=== PATIENT | male | born 1975 | race Two or more races ===

== ENCOUNTER 2024-09-15 10:55 | Day surgery (SDC) | payer MEDICAID, SELFPAY ==
[2024-09-12 11:11] LABS: Basophils # (Auto) 0.1 Thou/mm3 (0.0-0.2); Basophils % (Auto) 1 % (0-2.5); Eosinophils # (Auto) 0.2 Thou/mm3 (0.0-0.5); Eosinophils % (Auto) 2 % (0-10); Hematocrit 35.8 % (41.0-53.0); Hemoglobin 11.7 g/dL (13.5-16.0); Immature Granulocytes % (Auto) 0 % (0-0); Immature Granulocytes Auto 0.03 Thou/mm3 (0.00-0.00); Lymphocytes # (Auto) 1.7 Thou/mm3 (1.0-4.8); Lymphocytes % (Auto) 21 % (10-50); Mean Corpuscular HGB Conc 32.7 g/dl (31.0-37.0); Mean Corpuscular Volume 86 fL (80-100); Monocytes # (Auto) 0.5 Thou/mm3 (0.0-0.8); Monocytes % (Auto) 6 % (0-12); Neutrophils # (Auto) 5.6 Thou/mm3 (1.8-7.7); Neutrophils % (Auto) 70 % (37-80); Nucleated Red Blood Cell % 0 /100 WBC (0); Platelet Count 310 Thou/mm3 (140-440); RDW Standard Deviation 38.7 fL (35.1-43.9); Red Blood Count 4.18 Miln/mm3 (4.50-5.90)
[2024-09-12 11:19] LABS: Alanine Aminotransferase 24 U/L (10-49); Albumin, Serum 3.5 gm/dL (3.5-5.0); Albumin/Globulin Ratio 1.3 (1.2-2.2); Alkaline Phosphatase 124 U/L (46-116); Anion Gap 9 (7-16); Aspartate Amino Transferase 19 U/L (0-34); BUN/Creatinine Ratio 8 Ratio (12-20); Bilirubin,Total < 0.2 mg/dL (0.3-1.2); Blood Urea Nitrogen 61 mg/dL (9-23); Calcium 8.8 mg/dL (8.3-10.6); Calcium (Corrected) 9.2 mg/dL (8.5-10.1); Carbon Dioxide 24.1 mMol/L (20.0-31.0); Chloride 102 mMol/L (98-107); Creatinine (Component) 7.4 mg/dL (0.6-1.3); Globulin 2.7 gm/dL (2.3-3.5); Glucose 226 mg/dL (74-106); Osmolality,Calculated 294 (275-295); Potassium 4.2 mMol/L (3.4-5.1); Sodium 135 mMol/L (136-145); Total Protein 6.2 gm/dL (5.7-8.2); eGFR 8 See Note
[2024-09-12 11:23] LABS: Partial Thromboplastin Time 33.8 Seconds (22.0-36.0); Prothrombin Time 10.9 Seconds (9.0-12.2)
[2024-09-12 12:56] VITALS: BMI 37.0
--- NOTE | 2024-09-12 13:07 | SUR.PREOP ---
Pt took eliquis this morning, Dr Christopher SOLOMON notified stated ok to proceed and not take it anymore until after surgery. Nursing from [facility] informed.
[2024-09-15] VITALS (8 sets, daily range): BP systolic 109–178; BP diastolic 80–103; PULSE 73–77; RESP 12–18; TEMP 36.2–36.4; O2SAT 94–100; BMI 36.5
[2024-09-15 11:50] LABS: Potassium 4.1 mMol/L (3.4-5.1)
--- NOTE | 2024-09-15 14:26 | ESOP_ITS ---
Date of Procedure 09/15/24 Pre Op Diagnosis End-stage renal disease with the need for permanent dialysis access Post Op Diagnosis Same as preop diagnosis Procedure Creation of arteriovenous fistula between the median cubital vein and the pr oximal radial artery of the right upper extremity Findings The artery with some what calcified but widely patent and there is a good palpable thrill in the fistula Procedure Description With the patient supine under adequate laryngeal mask anesthesia the right upper extremity sterilely prepped and draped. A timeout was performed. A slightly oblique incision was made just distal to the antecubital fossa and the areas cubital vein was dissected free from surrounding tissues ligated distally with a 3-0 silk tie and mobilized. The dissection was then deepened through the bicipital aponeurosis to exposed the proximal portion of the radial artery which was calcified but was soft enough to clamp and had a good pulse and Doppler signal. The artery was then cramp proximally and distally a large arteriotomy was made and stay sutures were placed. The vein was then cut to size and sewn to the artery with a combination of interrupted and running 7-0 Prolene sutures. Before completion the artery was 4 flushed and back flushed the anastomotic area was copiously irrigated with heparin saline. Flow was then established and the anastomosis was completed. Hemostasis was obtained and the wound was closed in layers with 3-0 Vicryl the subcutaneous tissues and a 4 Monocryl subcuticular skin closure. A Dermabond dressing was applied. The patient woke up from anesthesia was moved to recovery in stable condition Anesthesia other (Laryngeal mask anesthesia) Implants None Pathology / specimen None Estimated Blood Loss 20 Condition Stable Surgeon Gabe White MD Surgical Staff Operation Date: 09/15/24 12:30 Case Staff Anesthesiologist: Mitul Vidales RN First Assistant: Abena Rodriguez
--- NOTE | 2024-09-15 14:40 | SUR.PHASEI ---
pt received from OR in recovery bay 2. pt asleep but responds to voice, breathing unlabored on oxymask 6l, v/s stable. pt dressing to right arm cdi. report received from Rosangela STAFFORD and Dr. Vidales.
[2024-09-15] MEDS: ACETAMINOPHEN IVPB 1,000 MG/100 ML VIAL 250 MG IV (15:43)
--- NOTE | 2024-09-15 16:15 | SUR.PHASEII ---
pt awake and alert, breathing unlabored on room air. v/s stable. pt dressing to right arm cdi. pt able to transfer to wheelchair. d/c instructions given with Mia at [facility] over the phone, all questions answered. pt d/c via wheelchair with all belongings.
== END 2024-09-15 16:15 | disposition home or self-care (01) ==
PROVIDERS: Anesthesiology; PCP Family Medicine; Referring Provider Surgery Vascular Surgery; Visit Provider Surgery Vascular Surgery
PROC: (CPT 36825; principal; 2024-09-15 12:15)
DX: I12.0 Hypertensive chronic kidney disease with stage 5 chronic kidney disease or end stage renal disease (principal); N18.6 End stage renal disease; E11.22 Type 2 diabetes mellitus with diabetic chronic kidney disease; Z86.73 Personal history of transient ischemic attack (TIA), and cerebral infarction without residual deficits; E66.9 Obesity, unspecified; Z68.36 Body mass index [BMI] 36.0-36.9, adult
CPT/HCPCS: 36821; 36415; 80053; 84132; 85025; 85610; 85730; A4217; A4649; J0131; J0461; J0690; J1100; J1644; J2250; J2405; J2440; J2704; J3010

== ENCOUNTER 2024-09-29 23:34 | Emergency (ER) | payer MEDICAID, SELFPAY ==
[2024-09-29 23:36] VITALS: PULSE 82; RESP 18; O2SAT 98; BMI 37.2
--- NOTE | 2024-09-29 23:41 | PC.NURSE ---
Pt has a new fistula to his right upper arm, that is not being used yet. Pt has a working vas-cath to his right chest. Pt became dizzy and had blurred vision this afternoon (unknown what time) and he started vomiting this evening. Pt was given zofran enroute and has not vomited since.
[2024-09-29 23:42] VITALS: BP 216/103; PULSE 78; RESP 17; TEMP 36.7; O2SAT 95
--- NOTE | 2024-09-29 23:44 | PC.NURSE ---
Pt is able to hold his left arm and left leg up, he does have more difficulty with the left side than the right. Pt states he's been like that since a previous stroke. Pt's left hand is clenched, which he states is his baseline
[2024-09-29 23:47] VITALS: BP 216/103; PULSE 77
[2024-09-29] MEDS: METOPROLOL TARTRATE 25 MG TABLET 50 MG PO (23:47)
[2024-09-29 23:48] VITALS: BP 216/103; PULSE 77
[2024-09-29] MEDS: cloNIDine HCL 0.1 MG TABLET 0.4 MG PO (23:48)
[2024-09-29 23:52] VITALS: BP 189/118; PULSE 76
[2024-09-30] VITALS (7 sets, daily range): BP systolic 162–224; BP diastolic 93–119; PULSE 70–76; RESP 18–20; TEMP 36.9; O2SAT 94–95
--- NOTE | 2024-09-30 00:01 | XR_ITS ---
Examination: CT brain head without contrast. 2-D sagittal coronal reconstructions Date and time of exam:September 30, 2024 0123 hours INDICATIONS: High blood pressure today with headache vomiting and dizziness CTDI: vol (mGy):55.3 DLP: (mGycm):1078 Technique: Multiple CT axial sections of the brain have been obtained, 5 mm slice thickness. Contrast has not been administered. 2-D sagittal, coronal reconstructions have been obtained Low dose protocols were performed. One or more of the following dose reduction techniques were used; automated exposure control, adjustment of the mA and/or KV according to patient size, use of iterative reconstruction technique. Findings: No significant ventricular enlargement. Old infarcts right caudate nucleus right frontal lobe right and left basal ganglia Intra-axial or extra-axial hemorrhage density is not seen. No mass effect or midline shift Basal cisterns are not remarkable. Fourth ventricle is midline. Cranial vault intact. Impression: Negative for acute hemorrhage, mass effect or midline shift Multiple old infarcts Consider brain MRI follow-up, without intravenous contrast
--- NOTE | 2024-09-30 00:01 | XR_ITS ---
Examination: CT chest, without intravenous contrast. CT abdomen, without intravenous contrast. CT pelvis, without intravenous contrast. 2-D sagittal and coronal reconstructions. 3-D reconstructions. Date and time of exam:September 30, 2024 0126 hours INDICATIONS: High blood pressure today with chest pain shortness of breath dizziness abdominal pain CTDI vol (mgy) 55.3 DLP (MGycm)1078 Technique: Multiple CT images, 3.0 mm slice thickness, obtained chest, abdomen, pelvis, with the high-resolution 64 slice scanner.. Sagittal and coronal 2-D reconstructions are obtained. 3-D reconstructions Low dose protocols were performed. One or more of the following dose reduction techniques were used; automated exposure control, adjustment of the mA and/or KV according to patient size, use of iterative reconstruction technique. Findings: Examination is limited without intravenous contrast Thoracic aorta pulmonary arteries intact Mild enlargement cardiac contour Pericardial effusion measuring up to 22 mm in thickness Moderate vascular congestion No lobar pneumonia No focal liver or splenic lesion No gallstones No pancreatic or adrenal mass Significant perinephric stranding No renal or ureteral calculi, no hydronephrosis Aorta normal size No bowel obstruction No pericecal inflammatory change Urinary bladder intact No prostatomegaly Prominent osteopenia with moderate disc narrowing L5-S1 IMPRESSION: Pericardial effusion measuring up to 22 mm in thickness Moderate vascular congestion Significant perinephric stranding, differential would include nephritis, urinary tract infection, clinical correlation advised
--- NOTE | 2024-09-30 00:02 | EKG_ITS ---
[facility] Test Date: 2024-09-30 Pat Name: AGUILA YOO Department: Room: - Gender: Male Privacy Officer: : 1975 Requested By: Steve Weller Order Number: [id number] Reading MD: Steve Weller Measurements Intervals [place] Rate: 69 P: 41 DC: 160 QRS: 30 QRSD: 101 T: 35 QT: 447 QTc: 481 Interpretive Statements SINUS RHYTHM PROLONGED QT INTERVAL Compared to ECG 08/13/2024 19:15:59 Prolonged QT interval now present T-wave abnormality no longer present /store/S0/[id number]/ecg/[id number].pdf
[2024-09-30] MEDS: cloNIDine HCL 0.1 MG TABLET 0.4 MG PO (00:03)
--- NOTE | 2024-09-30 00:10 | PC.NURSE ---
Pt declined catheter, urinal at bedside
--- NOTE | 2024-09-30 00:11 | PD.EDDIZZY ---
ED Dizzyness RME/HPI General Chief Complaint: Dizziness Stated Complaint: vomiting,dizziness Time Seen by Provider: 09/29/24 23:38 Arrival date/time: 09/29/24 23:34 RME / HPI RME / HPI Narrative: This section includes all my notes and documentations, including HPI, PE, and ED course. Steve Ziegler MD HPI: 49-year-old male here to be evaluated with several hours of severe headache and dizziness and blurred vision. No speech impairment. 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 No new loss of power in the arms or legs. No chest pain or shortness of breath. No other complaints ROS: All negative except as documented in HPI. Physical Exam: General: Alert and oriented. No acute distress. Eyes: Conjunctivae and lids clear. EOMI. PERRL. ENT: No nasal congestion. Pharynx normal. Tympanic membrane normal bilaterally. Neck: Supple. No carotid bruit. No JVD. Heart: RRR. Lungs: No respiratory distress. Good air movement. No rhonchi, wheezing, rales. Abdomen: Soft and nontender. Back: No CVA tenderness. Legs: No clubbing, cyanosis, edema. Skin: Warm and dry. Neuro: Alert and oriented X 3. Cranial Nerves II-XII grossly intact. No new peripheral motor deficits. I reviewed all diagnostic test results. My interpretation of the EKG is sinus rhythm with nonspecific ST-T changes. My review of the head CT report is no acute findings. My review of the chest/abdomen/pelvis CT report is no acute findings. Blood tests and urine tests unremarkable. At this point, diagnoses include hypertensive urgency. Treatment here included oral clonidine and oral metoprolol. Significant improvement noted. Added clonidine to his BP medication list. Based on my best medical judgment, made decision no further evaluation or treatment indicated at this time. Patient understands and agrees to the discharge instructions customized and printed, see below. Discharge instructions from Dr. Ziegler: 1. After extensive evaluation, there is no life-threatening condition.? Such as stroke or brain tumor or heart attack or pulmonary embolism (blood clots in your lungs) or pneumothorax (collapsed lung). 2. To help lower BP, clonidine 0.2 mg BID until cleared by a doctor taking care of him. 3. Seek immediate medical care with worsening or with any concerns.?? Steve Ziegler MD Related Data Home Medications ?Medication ?Instructions ?Recorded ?Confirmed furosemide 40 mg tablet 40 mg PO QDAY 04/18/24 09/12/24 glipizide 10 mg tablet 10 mg PO BID 04/18/24 09/12/24 calcitriol 0.25 mcg capsule 0.25 mcg PO USEASDIRECTD 08/15/24 09/12/24 lisinopril 20 mg tablet 20 mg PO 1XD 08/15/24 09/12/24 apixaban 5 mg tablet (Eliquis) 5 mg PO BID 09/12/24 09/12/24 carvedilol 12.5 mg tablet 12.5 mg PO BID 09/12/24 09/12/24 cholecalciferol (vitamin D3) 1,250 1,250 mcg PO QWEEK 09/12/24 09/12/24 mcg (50,000 unit) tablet rosuvastatin 20 mg tablet 20 mg PO HS 09/12/24 09/12/24 vitamin B complex-vitamin C-folic 1 tab PO QDAY 09/12/24 09/12/24 acid 0.8 mg tablet (Kaley-Radha) Previous Rx's ?Medication ?Instructions ?Recorded clonidine HCl 0.2 mg tablet 0.2 mg PO BID #60 tabs 09/30/24 Allergies Allergy/AdvReac Type Severity Reaction Status Date / Time No Known Allergies Allergy Verified 08/13/24 18:05 Course Quality Measures none Orders Category Date Time Status EKG (ED ONLY) *Do not use* NOW Care 09/30/24 00:02 Completed Saline [Insert IV] NOW Care 09/30/24 00:01 Active Straight [In and Out Catheter] X1 Care 09/30/24 00:[address] chest abdomen pelvis wo Stat Exams 09/30/24 00:[address] head/brain wo con Stat Exams 09/30/24 00:01 Taken EKG (ED Only) Stat Exams 09/30/24 00:02 Ordered BNP [B-Type Natriuretic Peptide] Stat Lab 09/30/24 00:00 Completed CBC Stat Lab 09/30/24 00:00 Completed CMP [Comprehensive Metabolic Panel] Stat Lab 09/30/24 00:00 Completed Magnesium Stat Lab 09/30/24 00:00 Completed TSH [Thyroid Stimulating Hormone] Stat Lab 09/30/24 00:00 Completed Troponin I Stat Lab 09/30/24 00:00 Completed UA, C/S IF [Urinalysis, C/S if Indicated] Stat Lab 09/30/24 00:29 Completed Metoprolol Tartrate [Lopressor] Med 09/29/24 23:39 Discontinued 50 mg PO X1 ONE cloNIDine HCL [Catapres] Med 09/29/24 23:39 Discontinued 0.4 mg PO X1 ONE Vital Signs Vital signs: Vital Signs Temperature 98.1 F 09/29/24 23:42 Pulse Rate 78 09/29/24 23:42 Respiratory Rate 17 09/29/24 23:42 Blood Pressure 216/103 H 09/29/24 23:42 Pulse Oximetry (%) 95 09/29/24 23:42 Oxygen Delivery Method Room Air 09/29/24 23:42 Dizziness Patient data External records reviewed:: [facility] previous records, EMS form and [facility] records Clinical information provided by:: patient and EMS Social determinants that could affect healthcare access:: none Patient has the following chronic illnesses:: Left side paralysis due to CVA and DM and CKD on dialysis and HTN How is presenting disease/condition affected by chronic disease/condition?: exacerbated by Evaluation data The following diagnostics were reviewed and interpreted by me:: lab results, radiology exam(s) and EKG tracing(s) (Sinus rhythm with nonspecific ST-T changes) Lab and/or radiology exams considered but not ordered:: None Interpretation Summary: Hypertensive urgency Medications / Prescriptions Medications or Prescriptions considered but not ordered:: None Medication administrations:: Medication Administration History Discontinued Medications Clonidine (Clonidine Hcl 0.1 Mg Tablet) 0.4 mg PO X1 ONE Stop: 09/29/24 23:40 Last Admin: 09/30/24 00:03 Dose: 0.2 mg Documented By: ALISHA Comments: Partial dose given at 2348 and remaining 0.2mg given at 0003 Admin: 09/29/24 23:48 Dose: 0.2 mg Documented By: ALISHA Metoprolol Tartrate (Metoprolol Tartrate 25 Mg Tablet) 50 mg PO X1 ONE Stop: 09/29/24 23:40 Last Admin: 09/29/24 23:47 Dose: 50 mg Documented By: ALISHA Clonidine and metoprolol Consultations Consultation(s) initiated? (list below): No Diagnosis Dizziness Differential Diagnosis: adverse reaction to drug, benign paroxysmal positional vertigo, orthostatic hypotension, cerebrovascular accident, transient cerebral ischemia and other (MD, electrolyte abnormalities) Most likely diagnosis given after review of the tests above:: Hypertensive urgency Admission Indicated Admission indicated?: not indicated Explain why admission is indicated or not indicated:: Admission criteria not met with significant improvement with treatment here Admission Request Was there a request for admission?: No Disposition Plan Disposition Plan: Discharge Discharge Attestation Discharge Attestation: The patient and all family members were given an opportunity to ask questions and understood the discharge instructions. Discharge instructions specifically effects, indications for sooner follow up or return to the emergency department, and the expected course of current diagnosis. Patient condition: Stable Discharge Plan Plan Patient Disposition: Xfer Skilled Nsg Fac (SNF) Prescriptions/Referrals Prescriptions/Med Rec: New clonidine HCl 0.2 mg tablet 0.2 mg PO BID Qty: 60 0RF No Action furosemide 40 mg Tablet 40 mg PO QDAY glipizide 10 mg Tablet 10 mg PO BID calcitriol 0.25 mcg capsule 0.25 mcg PO USEASDIRECTD Rx Instructions: Per patient he taskes every other day. lisinopril 20 mg tablet 20 mg PO 1XD carvedilol 12.5 mg Tablet 12.5 mg PO BID Rx Instructions: must administer with a meal/food Kaley-Radha 0.8 mg Tablet 1 tab PO QDAY rosuvastatin 20 mg Tablet 20 mg PO HS cholecalciferol (vitamin D3) 1,250 mcg (50,000 unit) Tablet 1,250 mcg PO QWEEK Eliquis 5 mg Tablet 5 mg PO BID Problem List Clinical Impression: Hypertensive urgency Patient/Caregiver Discharge Instructions Discharge Activity: activity as tolerated and resume usual activities Additional Instructions: Discharge instructions from Dr. Ziegler: 1. After extensive evaluation, there is no life-threatening condition.? Such as stroke or brain tumor or heart attack or pulmonary embolism (blood clots in your lungs) or pneumothorax (collapsed lung). 2. To help lower BP, clonidine 0.2 mg BID until cleared by a doctor taking care of him. 3. Seek immediate medical care with worsening or with any concerns.?? Print Language: Comoran Stand Alone Forms: Tiffany Award Info., Patient Portal Info Letter
[2024-09-30 00:14] LABS: Basophils % (Auto) 0 % (0-2.5); Eosinophils # (Auto) 0.2 Thou/mm3 (0.0-0.5); Eosinophils % (Auto) 2 % (0-10); Hematocrit 37.2 % (41.0-53.0); Immature Granulocytes % (Auto) 0 % (0-0); Immature Granulocytes Auto 0.02 Thou/mm3 (0.00-0.00); Lymphocytes # (Auto) 1.8 Thou/mm3 (1.0-4.8); Lymphocytes % (Auto) 21 % (10-50); Mean Corpuscular HGB Conc 32.3 g/dl (31.0-37.0); Mean Corpuscular Hemoglobin 28.4 pg (25.0-35.0); Mean Corpuscular Volume 88 fL (80-100); Monocytes # (Auto) 0.5 Thou/mm3 (0.0-0.8); Monocytes % (Auto) 6 % (0-12); Neutrophils # (Auto) 6.3 Thou/mm3 (1.8-7.7); Neutrophils % (Auto) 72 % (37-80); Nucleated Red Blood Cell % 0 /100 WBC (0); Platelet Count 220 Thou/mm3 (140-440); RDW Standard Deviation 43.4 fL (35.1-43.9); Red Blood Count 4.22 Miln/mm3 (4.50-5.90); White Blood Count 8.8 Thou/mm3 (3.8-10.6)
[2024-09-30 00:37] LABS: Collection Type, Urine Clean Catch
[2024-09-30 00:38] LABS: Alanine Aminotransferase 19 U/L (10-49); Albumin, Serum 3.5 gm/dL (3.5-5.0); Albumin/Globulin Ratio 1.2 (1.2-2.2); Alkaline Phosphatase 122 U/L (46-116); Anion Gap 8 (7-16); Aspartate Amino Transferase 27 U/L (0-34); BUN/Creatinine Ratio 7 Ratio (12-20); Bilirubin,Total 0.2 mg/dL (0.3-1.2); Blood Urea Nitrogen 50 mg/dL (9-23); Calcium 9.1 mg/dL (8.3-10.6); Calcium (Corrected) 9.5 mg/dL (8.5-10.1); Carbon Dioxide 27.6 mMol/L (20.0-31.0); Chloride 103 mMol/L (98-107); Creatinine (Component) 6.8 mg/dL (0.6-1.3); Estimated Creatinine Clearance 16.1 mL/min (>60); Globulin 2.9 gm/dL (2.3-3.5); Glucose 194 mg/dL (74-106); Magnesium 1.9 mg/dL (1.6-2.6); Osmolality,Calculated 295 (275-295); Potassium 4.4 mMol/L (3.4-5.1); Sodium 139 mMol/L (136-145); Thyroid Stimulating Hormone 3.09 uIU/mL (0.55-4.78); Total Protein 6.4 gm/dL (5.7-8.2); Troponin I 0.045 ng/mL (0.0-0.045); eGFR 9 See Note
[2024-09-30 00:44] LABS: B-Type Natriuretic Peptide 653 pg/mL (0-100)
[2024-09-30 01:00] LABS: Bilirubin,Urine Negative (Negative); Blood,Urine 2+ (Negative); Clarity,Urine Clear (Clear/Hazy); Color,Urine Lt-Yellow (Lt Yel-Yel); Culture Indicated,Urine Not Indicated; Glucose, Urine 4+ (Negative); Ketones,Urine Negative (Negative); Leukocyte Esterase,Urine Negative (Negative); Nitrite,Urine Negative (Negative); PH,Urine 8.5 (5.0-7.0); Protein,Urine 4+ (Neg - Trace); RBC,Urine 85 /hpf (0-3); Specific Gravity,Urine 1.017 (1.001-1.035); Squamous Epithelial Cell,Urine < 1 /hpf (0-5); Urobilinogen,Urine Negative mg/dL (0.0-1.0); WBC,Urine 2 /hpf (0-5)
--- NOTE | 2024-09-30 02:10 | PRELIM_ITS ---
CT scan of the head without intravenous contrast (axial sections with sagittal and coronal reformats) . September 30, 2024 0123 hoursClinical History: Dizziness and high BPComparison: No prior study is av ailable for comparison. Findings:There is no evidence of intracranial hemorrhage, mass effect or midl ine shift. The ventricles and CSF spaces are unremarkable. The calvarium is unremarkable. The mastoid air cells and the visualized paranasal sinuses are clear.Impression:No evidence of intracranial hemo rrhage, mass effect or midline shift. Recommend further evaluation with MRI, as clinically indicated. Report Electronically Signed By: Denise Perales 09/30/2024 2:09:36 AM [EST]
--- NOTE | 2024-09-30 02:28 | PRELIM_ITS ---
CT scan of the chest, abdomen and pelvis without intravenous contrast (axial sections with sagittal a nd coronal reformats) September 30, 2024 0126 hours Clinical History: Chest pain and abdominal pain.Co mparison: No prior study is available for comparison.Findings:The evaluation is limited due to lack o f intravenous contrast.Bibasilar dependent atelectasis is present. There is no pleural effusion or pn eumothorax. The aorta and its branches demonstrate atheromatous calcification without evidence of ane urysm. No evidence of mediastinal mass or lymphadenopathy. There is a small pericardial effusion.The liver, gallbladder, spleen, pancreas and adrenals are unremarkable on this noncontrast study. Perinep hric fat stranding is noted bilaterally. No evidence of bowel obstruction. The appendix is not defini tively visualized; however, there is no evidence of inflammatory process in the right lower quadrant to suggest appendicitis. The urinary bladder is incompletely distended at the time of the examination . There is no free fluid or free air.The osseous structures are unremarkable. Impression:1. Small per icardial effusion.2. Perinephric fat stranding bilaterally. While nonspecific, the possibility of uri nary infection cannot be excluded. Recommend clinical correlation.3. Other findings as described talia gallegos.Discussion Details: Results verbally communicated to : Dr. Ziegler at 02:23 AM 09/30/2024 Report Elect ronically Signed By: Denise Perales 09/30/2024 2:27:37 AM [EST]
--- NOTE | 2024-09-30 03:06 | PC.NURSE ---
Report given to Ashley at [facility] and [facility]
== END 2024-09-30 03:06 | disposition skilled nursing facility (03) ==
LOC: SERX 09-30 07:22
PROVIDERS: Emergency Provider Emergency Medicine; PCP Hospitalist
DX: I16.0 Hypertensive urgency (principal); I69.354 Hemiplegia and hemiparesis following cerebral infarction affecting left non-dominant side; I31.39 Other pericardial effusion (noninflammatory)
CPT/HCPCS: 36415; 70450; 71250; 74176; 80053; 81001; 83735; 83880; 84443; 84484; 85025; 93005; 99284; A9270

== ENCOUNTER 2024-09-30 10:27 | Emergency (ER) | payer MEDICAID, SELFPAY ==
[2024-09-30] VITALS (31 sets, daily range): BP systolic 141–218; BP diastolic 68–112; PULSE 63–71; RESP 0–18; TEMP 36.2–36.6; O2SAT 93–97; BMI 37.2
--- NOTE | 2024-09-30 11:09 | XR_ITS ---
Examination: AP chest single view TECHNIQUE: AP portable upright chest single view Exam date and time: September 30, 2024 1206 hours Comparison August 13, 2024 INDICATIONS: Dizziness today. FINDINGS: Mild enlargement cardiac contour Moderate vascular congestion Right internal jugular dialysis catheter tip satisfactory position Moderate osteopenia IMPRESSION: Moderate vascular congestion
--- NOTE | 2024-09-30 11:09 | XR_ITS ---
Examination: CT brain head without contrast. 2-D sagittal coronal reconstructions Date and time of exam:September 30, 2024 1138 hours INDICATIONS: Onset dizziness this morning CTDI: vol (mGy):51.6 DLP: (mGycm):1097 Technique: Multiple CT axial sections of the brain have been obtained, 5 mm slice thickness. Contrast has not been administered. 2-D sagittal, coronal reconstructions have been obtained Low dose protocols were performed. One or more of the following dose reduction techniques were used; automated exposure control, adjustment of the mA and/or KV according to patient size, use of iterative reconstruction technique. Findings: No significant ventricular enlargement. Multiple old appearing right basal ganglia and bilateral caudate nucleus, right occipital lobe infarcts Intra-axial or extra-axial hemorrhage density is not seen. No mass effect or midline shift Basal cisterns are not remarkable. Fourth ventricle is midline. Cranial vault intact. Impression: Negative for acute hemorrhage, mass effect or midline shift Given the patient's multiple old infarcts, consider brain MRI, stroke protocol follow-up
--- NOTE | 2024-09-30 11:12 | EDNOTE_ITS ---
ED Dizzyness RME/HPI General Chief Complaint: Dizziness Stated Complaint: DIZZINESS Time Seen by Provider: 09/30/24 10:52 Arrival date/time: 09/30/24 10:27 RME / HPI RME / HPI Narrative: 49-year-old male patient with significant history of diabetes mellitus, hypertension, CVA with residual left-sided weakness was brought in by EMS from [facility] regarding dizziness. Patient has been having dizziness since earlier today, severity moderate, worse with opening the eyes. Patient denies any vomiting. Denies any fever denies any headache. Denies any other new upper or lower extremity weakness. Denies any trauma or fall. Related Data Home Medications ?Medication ?Instructions ?Recorded ?Confirmed furosemide 40 mg tablet 40 mg PO QDAY 04/18/24 09/12/24 glipizide 10 mg tablet 10 mg PO BID 04/18/24 09/12/24 calcitriol 0.25 mcg capsule 0.25 mcg PO USEASDIRECTD 08/15/24 09/12/24 lisinopril 20 mg tablet 20 mg PO 1XD 08/15/24 09/12/24 apixaban 5 mg tablet (Eliquis) 5 mg PO BID 09/12/24 09/12/24 carvedilol 12.5 mg tablet 12.5 mg PO BID 09/12/24 09/12/24 cholecalciferol (vitamin D3) 1,250 1,250 mcg PO QWEEK 09/12/24 09/12/24 mcg (50,000 unit) tablet rosuvastatin 20 mg tablet 20 mg PO HS 09/12/24 09/12/24 vitamin B complex-vitamin C-folic 1 tab PO QDAY 09/12/24 09/12/24 acid 0.8 mg tablet (Kaley-Radha) Previous Rx's ?Medication ?Instructions ?Recorded clonidine HCl 0.2 mg tablet 0.2 mg PO BID #60 tabs 09/30/24 Allergies Allergy/AdvReac Type Severity Reaction Status Date / Time No Known Allergies Allergy Verified 09/30/24 10:46 Review of Systems Review of Systems Narrative Review of Systems: Review of system reviewed and within normal limits except mentioned in HPI ED Exam Narrative Physical exam: VITAL SIGNS: Reviewed. GENERAL APPEARANCE: Alert and interactive, follows commands, no acute distress, HEAD AND FACE: Non-traumatic. ENT: PERRL, pink conjunctivitis, eyelid no trauma, Mucous membrane moist. no Nystagmus NECK: Supple, nontender, no nuchal rigidity. CHEST: No tenderness, no crepitus, no paradoxical movement, no retractions. LUNGS: Clear, well ventilated, symmetric, no rales, no wheezing, no ronchi, no stridor, good breath sounds bilaterally. HEART: Regular rate, regular rhythm, no murmur, no gallops. ABDOMEN: Soft, positive bowel sounds, nondistended, no guarding, nontender, no rebound, no masses, RECTAL: Deferred. GENITAL: Deferred. NEUROLOGICAL: Gross motor function intact sensory function intact, Appropriate for age. MUSCULOSKELETAL: low back nontender, full range of motion. Right Upper Extremity ,+ left-sided weakness EXTREMITIES: Nontender, full range of motion SKIN: Color pink, dry, no rash, no lacerations, no abrasions, no contusions. LYMPHATICS: Deferred. Course Quality Measures none Orders Category Date Time Status Dialysis [Hemodialysis] Urgent Care 09/30/24 15:42 Active EKG (ED ONLY) *Do not use* NOW Care 09/30/24 11:10 Completed Consult to Nephrology Stat Cons 09/30/24 14:[address] head/brain wo con Stat Exams 09/30/24 11:09 Completed EKG (ED Only) Stat Exams 09/30/24 11:10 Ordered XR chest 1V Stat Exams 09/30/24 11:09 Completed B-Type Natriuretic Peptide Stat Lab 09/30/24 11:40 Completed CBC Stat Lab 09/30/24 11:40 Completed Comprehensive Metabolic Panel Stat Lab 09/30/24 11:40 Completed Partial Thromboplastin Time Stat Lab 09/30/24 11:40 Completed Prothrombin Time with INR Stat Lab 09/30/24 11:40 Completed Troponin I Stat Lab 09/30/24 11:40 Completed Urinalysis, C/S if Indicated Stat Lab 09/30/24 11:09 Ordered Albumin Human 25% Ivpb [Albuminar-25 Ivpb] Med 09/30/24 15:43 Active 25 gm in 100 ml IV PRN DiphenhydrAMINE INJ [Benadryl Inj] Med 09/30/24 21:20 Discontinued 25 mg IV X1 ONE Epoetin Abdelrahman-Epbx [Retacrit Inj] Med 09/30/24 20:00 Discontinued 10,000 unit SC X1 ONE Heparin* 1000 UNITS/ML- 10 ML [Heparin 1000 UNITS/ML- Med 09/30/24 19:33 Active 10 ML] 3,300 unit INDWELLCAT PRN PRN Meclizine HCl [Antivert] Med 09/30/24 11:12 Discontinued 50 mg PO X1 ONE Vital Signs Vital signs: Vital Signs Temperature 97.6 F 09/30/24 10:42 Pulse Rate 71 09/30/24 10:42 Respiratory Rate 13 09/30/24 10:42 Blood Pressure 156/89 H 09/30/24 10:42 Pulse Oximetry (%) 97 09/30/24 10:42 Oxygen Delivery Method Room Air 09/30/24 10:42 Dizziness MDM Narrative MDM Narrative:: male patient with significant history of diabetes mellitus, hypertension, CVA with residual left-sided weakness was brought in by EMS from [facility] regarding dizziness. Patient has been having dizziness since earlier today, severity moderate, worse with opening the eyes. Patient denies any vomiting. Denies any fever denies any headache. Denies any other new upper or lower extremity weakness. Denies any trauma or fall. Patient's workup today came back with no signs of elevated creatinine, BUN was also elevated 55, potassium is normal BNP is 856. CT scan of the head came back unremarkable. Chest x-ray showed moderate vascular congestion. EKG showed as interpreted by me as normal sinus rhythm, ventricular rate of 69 bpm, no ST segment elevation depression noted. Patient data External records reviewed:: None Clinical information provided by:: patient Social determinants that could affect healthcare access:: none Patient has the following chronic illnesses:: ESRD, diabetes mellitus hypertension, CVA with left-sided weakness How is presenting disease/condition affected by chronic disease/condition?: exacerbated by Evaluation data The following diagnostics were reviewed and interpreted by me:: lab results, radiology exam(s) and EKG tracing(s) Lab and/or radiology exams considered but not ordered:: None Interpretation Summary: 's workup today came back with no signs of elevated creatinine, BUN was also elevated 55, potassium is normal BNP is 856. CT scan of the head came back unremarkable. Chest x-ray showed moderate vascular congestion. EKG showed as interpreted by me as normal sinus rhythm, ventricular rate of 69 bpm, no ST segment elevation depression noted. Medications / Prescriptions Medications or Prescriptions considered but not ordered:: None Medication administrations:: Medication Administration History Heparin Sodium (Porcine) (Heparin Sod Inj 1000 Unit/Ml Vial 10 Ml) 3,300 unit INDWELLCAT PRN PRN PRN Reason: DIALYSIS Stop: 10/14/24 19:32 Albumin Human (Albuminar-25 Ivpb) 25 gm in 100 mls @ 100 mls/min IV PRN PRN PRN Reason: DIALYSIS Discontinued Medications Diphenhydramine HCl (Diphenhydramine Inj 50 Mg/Ml Vial) 25 mg IV X1 ONE Stop: 09/30/24 21:21 Last Admin: 09/30/24 21:22 Dose: 25 mg Documented By: MM Epoetin Abdelrahman (Epoetin Abdelrahman-Epbx 3,000 Unit/Ml Vial (Esrd)) 10,000 unit SC X1 ONE Stop: 09/30/24 20:01 Meclizine HCl (Meclizine Hcl 25 Mg Tablet) 50 mg PO X1 ONE Stop: 09/30/24 11:13 Last Admin: 09/30/24 11:26 Dose: 50 mg Documented By: AM Patient received meclizine. Consultations Consultation(s) initiated? (list below): Yes Consultation #1 (Physician, Specialty, Details): I consulted , patient's limited radiology technician, and patient underwent hemodialysis today. Patient is okay to be discharged home Diagnosis Dizziness Differential Diagnosis: adverse reaction to drug, cerebrovascular accident and other ( dizziness, blurry vision) Most likely diagnosis given after review of the tests above:: Dizziness, blurry vision, ESRD needing hemodialysis Admission Indicated Admission indicated?: not indicated Explain why admission is indicated or not indicated:: Stable Admission Request Was there a request for admission?: No Disposition Plan Disposition Plan: Discharge Discharge Attestation Discharge Attestation: The patient was given an opportunity to ask questions and understood the discharge instructions. Discharge instructions specifically effects, indications for sooner follow up or return to the emergency department, and the expected course of current diagnosis. Patient condition: Stable Discharge Plan Plan Patient Disposition: HOME (Self Care) Disposition Comment: Stable Prescriptions/Referrals Prescriptions/Med Rec: No Action furosemide 40 mg Tablet 40 mg PO QDAY glipizide 10 mg Tablet 10 mg PO BID calcitriol 0.25 mcg capsule 0.25 mcg PO USEASDIRECTD Rx Instructions: Per patient he taskes every other day. lisinopril 20 mg tablet 20 mg PO 1XD clonidine HCl 0.2 mg tablet 0.2 mg PO BID Qty: 60 0RF carvedilol 12.5 mg Tablet 12.5 mg PO BID Rx Instructions: must administer with a meal/food Kaley-Radha 0.8 mg Tablet 1 tab PO QDAY rosuvastatin 20 mg Tablet 20 mg PO HS cholecalciferol (vitamin D3) 1,250 mcg (50,000 unit) Tablet 1,250 mcg PO QWEEK Eliquis 5 mg Tablet 5 mg PO BID Referrals: Areli Diana MD [Primary Care Provider] - In 1 week Problem List Clinical Impression: Dizziness, Encounter for hemodialysis for ESRD, Blurring of vision Patient/Caregiver Discharge Instructions Discharge Activity: activity as tolerated Education Materials: Hemodialysis Additional Instructions: Thank you for the opportunity for serving you today. You are stable for discharged . You are advised to: Follow-up with your PCP in 1 to 2 days Return to ED for worsening of symptoms Print Language: Nepali Stand Alone Forms: Tiffany Award Info., Patient Portal Info Letter NERIS/CYNDI Supervising Physician NERIS/CYNDI Supervising Physician: MD Ramon
[2024-09-30] MEDS: MECLIZINE HCL 25 MG TABLET 50 MG PO (11:26)
[2024-09-30 11:50] LABS: Basophils % (Auto) 0 % (0-2.5); Eosinophils # (Auto) 0.1 Thou/mm3 (0.0-0.5); Eosinophils % (Auto) 1 % (0-10); Hematocrit 35.6 % (41.0-53.0); Hemoglobin 11.6 g/dL (13.5-16.0); Immature Granulocytes % (Auto) 0 % (0-0); Immature Granulocytes Auto 0.02 Thou/mm3 (0.00-0.00); Lymphocytes # (Auto) 1.4 Thou/mm3 (1.0-4.8); Lymphocytes % (Auto) 17 % (10-50); Mean Corpuscular HGB Conc 32.6 g/dl (31.0-37.0); Mean Corpuscular Hemoglobin 28.7 pg (25.0-35.0); Mean Corpuscular Volume 88 fL (80-100); Monocytes # (Auto) 0.4 Thou/mm3 (0.0-0.8); Monocytes % (Auto) 5 % (0-12); Neutrophils # (Auto) 6.3 Thou/mm3 (1.8-7.7); Neutrophils % (Auto) 77 % (37-80); Nucleated Red Blood Cell % 0 /100 WBC (0); Platelet Count 194 Thou/mm3 (140-440); RDW Standard Deviation 42.6 fL (35.1-43.9); Red Blood Count 4.04 Miln/mm3 (4.50-5.90); White Blood Count 8.2 Thou/mm3 (3.8-10.6)
[2024-09-30 12:06] LABS: Partial Thromboplastin Time 29.9 Seconds (22.0-36.0); Prothrombin Time 11.4 Seconds (9.0-12.2)
[2024-09-30 12:15] LABS: B-Type Natriuretic Peptide 856 pg/mL (0-100)
[2024-09-30 12:30] LABS: Alanine Aminotransferase 20 U/L (10-49); Albumin/Globulin Ratio 1.4 (1.2-2.2); Alkaline Phosphatase 108 U/L (46-116); Anion Gap 8 (7-16); Aspartate Amino Transferase 22 U/L (0-34); BUN/Creatinine Ratio 8 Ratio (12-20); Bilirubin,Total < 0.2 mg/dL (0.3-1.2); Blood Urea Nitrogen 55 mg/dL (9-23); Calcium 8.3 mg/dL (8.3-10.6); Calcium (Corrected) 9.1 mg/dL (8.5-10.1); Carbon Dioxide 26.3 mMol/L (20.0-31.0); Chloride 104 mMol/L (98-107); Creatinine (Component) 7.2 mg/dL (0.6-1.3); Estimated Creatinine Clearance 15.2 mL/min (>60); Globulin 2.2 gm/dL (2.3-3.5); Glucose 131 mg/dL (74-106); Osmolality,Calculated 292 (275-295); Potassium 4.2 mMol/L (3.4-5.1); Sodium 138 mMol/L (136-145); Total Protein 5.2 gm/dL (5.7-8.2); Troponin I 0.042 ng/mL (0.0-0.045); eGFR 9 See Note
--- NOTE | 2024-09-30 19:08 | PC.NURSE ---
PATIENT WENT TO DIALYSIS WITH [facility]DIA MOORETUGBOAT DISPATCHER NURSE.
--- NOTE | 2024-09-30 19:32 | PC.NURSE ---
PT'S BP ELEVATED PT DENIES ALL C/O CHEST PAIN, PRESSURE, DICKENS, SOB OR DISCOMFORT AND REMAINS SITTING UPRIGHT. WILL CONT. TO MONITOR
[2024-09-30] MEDS: DiphenhydrAMINE INJ 50 MG/ML VIAL 25 MG IV (21:22)
[2024-09-30] MEDS: HEPARIN SOD INJ 1000 UNIT/ML VIAL 10 ML 3300 UNIT INDWELLCAT (22:54)
--- NOTE | 2024-09-30 23:50 | PC.NURSE ---
REPORT GIVEN TO DOMINIQUE BOOTH AT [facility]. ALL QUESTIONS ASKED AND ANSWERED. WAITING FOR TRANSPORTATION.
[2024-10-01 00:02] VITALS: BP 169/88; PULSE 68; RESP 18; TEMP 36.6; O2SAT 98
== END 2024-10-01 00:08 | disposition home or self-care (01) ==
PROVIDERS: Nurse Practitioner Family; Emergency Provider Emergency Medicine; PCP Hospitalist
DX: I12.0 Hypertensive chronic kidney disease with stage 5 chronic kidney disease or end stage renal disease (principal); E11.22 Type 2 diabetes mellitus with diabetic chronic kidney disease; N18.6 End stage renal disease; R42 Dizziness and giddiness; H53.8 Other visual disturbances; R09.89 Other specified symptoms and signs involving the circulatory and respiratory systems; Z99.2 Dependence on renal dialysis; Z79.84 Long term (current) use of oral hypoglycemic drugs; Z79.01 Long term (current) use of anticoagulants
CPT/HCPCS: 36415; 70450; 71045; 80053; 81001; 83880; 84484; 85025; 85610; 85730; 90935; 99285; J1200; J1643; A9270; G0257; J1644

== ENCOUNTER 2024-10-03 14:51 | Emergency (ER) | payer MEDICAID, SELFPAY ==
[2024-10-03 15:19] VITALS: PULSE 88; RESP 18; O2SAT 96
[2024-10-03 15:44] VITALS: BMI 37.2
[2024-10-03 15:46] VITALS: BP 185/98; PULSE 73; RESP 16; TEMP 37; O2SAT 98
[2024-10-03] MEDS: KETOROLAC INJ 60 MG/2 ML VIAL 30 MG IM (16:00)
[2024-10-03] MEDS: DiphenhydrAMINE INJ 50 MG/ML VIAL IM (16:01)
[2024-10-03] MEDS: METOCLOPRAMIDE INJ 5 MG/ML VIAL 2 ML 10 MG IM (16:02)
--- NOTE | 2024-10-03 16:29 | PD.EDADULT ---
ED General RME/HPI General Chief complaint: Dizziness Stated complaint: HIGH BLOOD PRESSURE Time Seen by Provider: 10/03/24 15:17 Arrival date/time: 10/03/24 14:51 RME / HPI RME / HPI narrative: 49-year-old male end-stage renal disease (Wednesdays and Fridays), chronic headaches and migraines, who presents to the emergency department with current headache and concerns for the elevated blood pressure. He actually had dialysis yesterday with plans for dialysis on Thursday and then Thursday this week due to the holiday. He had no issues with dialysis yesterday. He denies recent fevers chills or sweats. This seems typical of his recurrent headaches Related Data Home Medications ?Medication ?Instructions ?Recorded ?Confirmed furosemide 40 mg tablet 40 mg PO QDAY 04/18/24 09/12/24 glipizide 10 mg tablet 10 mg PO BID 04/18/24 09/12/24 calcitriol 0.25 mcg capsule 0.25 mcg PO USEASDIRECTD 08/15/24 09/12/24 lisinopril 20 mg tablet 20 mg PO 1XD 08/15/24 09/12/24 apixaban 5 mg tablet (Eliquis) 5 mg PO BID 09/12/24 09/12/24 carvedilol 12.5 mg tablet 12.5 mg PO BID 09/12/24 09/12/24 cholecalciferol (vitamin D3) 1,250 1,250 mcg PO QWEEK 09/12/24 09/12/24 mcg (50,000 unit) tablet rosuvastatin 20 mg tablet 20 mg PO HS 09/12/24 09/12/24 vitamin B complex-vitamin C-folic 1 tab PO QDAY 09/12/24 09/12/24 acid 0.8 mg tablet (Kaley-Radha) Previous Rx's ?Medication ?Instructions ?Recorded clonidine HCl 0.2 mg tablet 0.2 mg PO BID #60 tabs 09/30/24 Allergies Allergy/AdvReac Type Severity Reaction Status Date / Time No Known Allergies Allergy Verified 09/30/24 10:46 Review of Systems Review of Systems Systems Reviewed: All systems reviewed, normal except as documented ED Exam Narrative Physical exam: GENERAL APPEARANCE: AxOx4, generally well-appearing, no acute distress. HEENT: NC, AT. MMM. EOMI, clear conjunctiva, oropharynx clear. NECK: Supple without lymphadenopathy. No stiffness or restricted ROM. HEART: Normal rate and regular rhythm, normal S1/S1, no m/r/g LUNGS: CTAB, moving air well. No crackles or wheezes are heard. ABDOMEN: Soft, nontender, nondistended with good bowel sounds heard. BACK: No midline C/T/L spine pain or deformity, No CVAT, no obvious deformity. EXTREMITIES: Without cyanosis, clubbing or edema. MUSCULOSKELETAL: FROM of all major joints, no chest tenderness, multiple toes amputated on bilateral feet, wounds are clean dry and intact NEUROLOGICAL: Grossly nonfocal. Alert and oriented, moving all 4 extremities. CN not formally tested but appear grossly intact. Observed to ambulate with normal gait. Skin: Warm and dry without any rash. Course Quality Measures none Orders Category Date Time Status DiphenhydrAMINE INJ [Benadryl Inj] Med 10/03/24 15:22 Discontinued 50 mg IM X1 ONE Ketorolac Inj [Toradol Inj] Med 10/03/24 15:22 Discontinued 30 mg IM X1 ONE Metoclopramide Inj [Reglan Inj] Med 10/03/24 15:22 Discontinued 10 mg IM X1 ONE Vital Signs Vital signs: Vital Signs Temperature 98.6 F 10/03/24 15:46 Pulse Rate 73 10/03/24 15:46 Respiratory Rate 16 10/03/24 15:46 Blood Pressure 185/98 H 10/03/24 15:46 Pulse Oximetry (%) 98 10/03/24 15:46 Oxygen Delivery Method Room Air 10/03/24 15:46 SpO2 98% on room air, patient is nonhypoxic MDM Patient data External records reviewed:: [facility] previous records Clinical information provided by:: patient Social determinants that could affect healthcare access:: none Patient has the following chronic illnesses:: End-stage renal disease, migraines How is presenting disease/condition affected by chronic disease/condition?: caused by Evaluation data The following diagnostics were reviewed and interpreted by me:: other (specify) (Workup medicated) Lab and/or radiology exams considered but not ordered:: None Interpretation Summary: Not applicable Medications Medications considered but not ordered:: None Medication administrations:: Medication Administration History Discontinued Medications Diphenhydramine HCl (Diphenhydramine Inj 50 Mg/Ml Vial) 50 mg IM X1 ONE Stop: 10/03/24 15:23 Last Admin: 10/03/24 16:01 Dose: 50 mg Documented By: MERCEDES Ketorolac Tromethamine (Ketorolac Inj 60 Mg/2 Ml Vial) 30 mg IM X1 ONE Stop: 10/03/24 15:23 Last Admin: 10/03/24 16:00 Dose: 30 mg Documented By: MERCEDES Metoclopramide HCl (Metoclopramide Inj 5 Mg/Ml Vial 2 Ml) 10 mg IM X1 ONE; Protocol Stop: 10/03/24 15:23 Last Admin: 10/03/24 16:02 Dose: 10 mg Documented By: MERCEDES Above Consultations Consultation(s) initiated? (list below): No Diagnosis Differential Diagnosis ED Complaint MDM: Migraine, cluster headache, tension headache, hypertensive encephalopathy Most likely diagnosis given after review of the tests above:: See below Admission Indicated Admission indicated?: not indicated Explain why admission is indicated or not indicated:: As per narrative Admission Request Was there a request for admission?: No Disposition Plan Disposition Plan: Discharge Discharge Attestation Discharge Attestation: The patient and all family members were given an opportunity to ask questions and understood the discharge instructions. Discharge instructions specifically effects, indications for sooner follow up or return to the emergency department, and the expected course of current diagnosis. Patient condition: Stable Medical Decision Making MDM Narrative MDM Narrative: Mr. Vincent presents to the emergency department with recurrence of his chronic headaches. He did not take anything for the headaches just his blood pressure medicines and comes to emergency department because of blood pressure had not improved. However I felt that his primary was his headache and with treatment of his headache his blood pressure would improve. After a migraine cocktail of diphenhydramine, metoclopramide, and ketorolac, headache had completely resolved with improvement of the blood pressure. He had neurologically intact therefore further workup was not indicated. Differential Diagnosis Differential Diagnosis: Migraine, cluster headache, tension headache, hypertensive encephalopathy Discharge Plan Plan Patient Disposition: HOME (Self Care) Prescriptions/Referrals Prescriptions/Med Rec: No Action furosemide 40 mg Tablet 40 mg PO QDAY glipizide 10 mg Tablet 10 mg PO BID calcitriol 0.25 mcg capsule 0.25 mcg PO USEASDIRECTD Rx Instructions: Per patient he taskes every other day. lisinopril 20 mg tablet 20 mg PO 1XD clonidine HCl 0.2 mg tablet 0.2 mg PO BID Qty: 60 0RF carvedilol 12.5 mg Tablet 12.5 mg PO BID Rx Instructions: must administer with a meal/food Kaley-Radha 0.8 mg Tablet 1 tab PO QDAY rosuvastatin 20 mg Tablet 20 mg PO HS cholecalciferol (vitamin D3) 1,250 mcg (50,000 unit) Tablet 1,250 mcg PO QWEEK Eliquis 5 mg Tablet 5 mg PO BID Referrals: Master Wellington MD [Primary Care Provider] - In 1 week Problem List Clinical Impression: Chronic headache, End stage kidney disease Patient/Caregiver Discharge Instructions Education Materials: Self-Care for Headaches, ED Chronic Kidney Disease (CKD) Additional Instructions: Puede continuar con taylor programa de di?lisis normal jeremy esta semana (el programa de di?lisis de vacaciones). Realice un seguimiento con taylor m?dico de atenci?n primaria seg?n sea necesario. Puede regresar al departamento de emergencias antes si los s?ntomas empeoran o si nota alg?n problema nuevo o preocupante. Print Language: Icelandic Stand Alone Forms: Tiffany Award Info., Patient Portal Info Letter
[2024-10-03] MEDS: LORazepam 0.5 MG TABLET 1 MG PO (17:08)
--- NOTE | 2024-10-03 17:46 | PC.CC ---
ASW engaged to arrange transport for pt back to [facility]. Pt wheelchair bound at baseline with DME available to pt in ED. [id number]-Call to [facility] for gurney transport. Reference # [id number]. For any questions contact [phone]. PCS and face sheet hard faxed and uploaded to [email or web address] for Dispatch. Pending transport ETA.
[2024-10-03 19:43] VITALS: BP 160/74; PULSE 76; RESP 16; TEMP 37; O2SAT 98
== END 2024-10-03 20:46 | disposition home or self-care (01) ==
PROVIDERS: Emergency Provider Emergency Medicine; PCP Family Medicine
DX: R51.9 Headache, unspecified (principal); I12.0 Hypertensive chronic kidney disease with stage 5 chronic kidney disease or end stage renal disease; N18.6 End stage renal disease; Z99.2 Dependence on renal dialysis
CPT/HCPCS: 96372; 99283; J1200; J1885; J2765; A9270

== ENCOUNTER 2024-10-04 18:55 | Emergency (ER) | payer MEDICAID, SELFPAY ==
--- NOTE | 2024-10-04 19:03 | EDNOTE_ITS ---
ED General RME/HPI General Chief complaint: Nausea/Vomiting/Diarrhea Stated complaint: HEADCAHE Time Seen by Provider: 10/04/24 18:56 Arrival date/time: 10/04/24 18:55 RME / HPI RME / HPI narrative: Dr. Navarro?s Main ED Evaluation: 49yo male with pmhx CVA with residual left-sided deficits, HTN BIBA from [facility] presents to the ED for complaints of dizziness, headache, N/V, and elevated blood pressure. Per EMS, patient's blood pressure was 200 systolically. Patient states he feels like the room is moving, reporting it worsens when he stands up and sits down. He notes his vision in his left eye is progressively getting worse. He denies any other associated symptoms. No known allergies. Related Data Home Medications ?Medication ?Instructions ?Recorded ?Confirmed furosemide 40 mg tablet 40 mg PO QDAY 04/18/24 09/12/24 glipizide 10 mg tablet 10 mg PO BID 04/18/24 09/12/24 calcitriol 0.25 mcg capsule 0.25 mcg PO USEASDIRECTD 08/15/24 09/12/24 lisinopril 20 mg tablet 20 mg PO 1XD 08/15/24 09/12/24 apixaban 5 mg tablet (Eliquis) 5 mg PO BID 09/12/24 09/12/24 carvedilol 12.5 mg tablet 12.5 mg PO BID 09/12/24 09/12/24 cholecalciferol (vitamin D3) 1,250 1,250 mcg PO QWEEK 09/12/24 09/12/24 mcg (50,000 unit) tablet rosuvastatin 20 mg tablet 20 mg PO HS 09/12/24 09/12/24 vitamin B complex-vitamin C-folic 1 tab PO QDAY 09/12/24 09/12/24 acid 0.8 mg tablet (Kaley-Radha) Previous Rx's ?Medication ?Instructions ?Recorded clonidine HCl 0.2 mg tablet 0.2 mg PO BID #60 tabs 09/30/24 acetaminophen 500 mg capsule 1,000 mg (2 x 500 mg) PO Q6H PRN 10/04/24 headache 5 days #40 caps diphenhydramine HCl 12.5 mg 12.5 mg PO TID PRN headache 10 10/04/24 chewable tablet (Children's days #30 tabs Benadryl Allergy) meclizine 25 mg tablet 25 mg PO TID Vertigo 10 days #30 10/04/24 tabs metoclopramide HCl 5 mg tablet 5 mg PO QDAY PRN headache 10 days 10/04/24 (Reglan) #10 tabs Allergies Allergy/AdvReac Type Severity Reaction Status Date / Time No Known Allergies Allergy Verified 09/30/24 10:46 Review of Systems Review of Systems Systems Reviewed: All systems reviewed, normal except as documented Past Medical History Past Medical History NEUROLOGIC: Positive Neurological Disorders and Cerebrovascular Accident; Negative Transient Ischemic Attacks (TIA), Dementia, Alzheimer's Disease, Parkinson's Disease, Brain Tumor, Meningitis, Seizures, Epilepsy, Multiple Sclerosis, Cerebral Palsy, Amyotrophic Lateral Sclerosis (ALS/Edda Gehrig's), Guillain-Colusa Syndrome, Spina Bifida, Paralysis, Peripheral Neuropathy, Moody's Palsy, Subdural Hematoma, Migraine, Head Trauma, Spinal Cord Injury or Traumatic Brain Injury CARDIAC: Positive Cardiac Disorders, Peripheral Vascular Disease, Hypercholesterolemia, Edema, Cellulitis and Hypertension; Negative Cardiac Arrhythmia, Atrial Fibrillation, Angina, Heart Murmur, Coronary Artery Disease, Atherosclerotic Heart Disease, Aneurysm, Congestive Heart Fail ure, Congenital Heart Disease, Cardiomyopathy or Deep Vein Thrombosis RESPIRATORY: Negative Chronic Obstructive Pulmonary Disease (COPD), Asthma, Bronchitis, Emphysema, Pneumonia, Pulmonary Fibrosis, Cystic Fibrosis, Tuberculosis, Pulmonary Embolism, Pulmonary Edema or Sleep Apnea GASTROINTESTINAL: Positive Gastrointestinal Disorders (diarrhea), Pancreatitis and Obesity; Negative Hepatitis, Cirrhosis, Celiac Disease, Gall Bladder Disease, Gastrointestinal Bleed, Esophageal Varices, Chery's Esophagus, Colitis, Ulcerative Colitis, Diverticulitis, Diverticulosis, Ulcer, Colorectal Cancer, Irritable Bowel, Crohn's Disease, Obstructive Bowel, Hiatal Hernia, Hemorrhoids or Gastroesophageal Reflux Disease GENITOURINARY: Positive Genitourinary Disorders (voids daily only a little) and Dialysis (M/W/F); Negative Renal Disease, Kidney Stones, Inguinal Hernia, Prostate Cancer or Benign Prostatic Hyperplasia REPRODUCTIVE: Negative Breast Cancer, Fibroids, Genital Herpes, Gonorrhea, Syphilis or Testicular Cancer MUSCULOSKELETAL: Positive Musculoskeletal Disorders and Osteomyelitis; Negative Muscular Dystrophy, Myasthenia Gravis, Marfan's Syndrome, Bone Cancer, Arthritis, Rheumatoid Arthritis, Osteoporosis, Degenerative Disk Disease, Gout, Scoliosis, Carpal Tunnel Syndrome, Fibromyalgia, Fractures or Degenerative Joint Disease ENT: Negative Cataracts, Glaucoma, Blind, Retinal Detachment, Ear Infection, Deafness, Head Trauma or Eye Prosthesis ENDOCRINE: Positive Endocrine Disorders and Diabetes Mellitus Type 2; Negative Diabetes Mellitus Type 1, Hypoglycemia, Hyperthyroidism, Hypoth yroidism, Parathyroid Disease, Pituitary Disease, Systemic Lupus Erythematosus, Syndrome of Inappropriate Antidiuretic Hormone (SIADH) or Graves' Disease HEMATOLOGIC: Positive Blood Disorders and Anemia; Negative Leukemia, Hemophilia, Thalassemia, Sickle Cell Disease or Clotting Problems PSYCHO/SOCIAL: Positive Recreational Drug Use, Depression and Anxiety; Negative Psychiatric Problems, Schizophrenia, Bipolar Disorder, Behavior Problems, Self-Mutilation, Attention Deficit Disorder, Attention Deficit Hyperactivity Disorder, Depression or Post Traumatic Stress Disorder OTHER HISTORY: Positive Hospitalization (cva); Negative Autoimmune Disease, Down Syndrome, Autism, Developmental Delay, Shingles, Falls, Blood Transfusions, Anesthesia Reactions, Organ Transplant, Chemotherapy, Radiation Therapy, Hyperbaric Therapy, MRSA, VRSA, Vancomycin- Resistant Enterococci, Human Immunodeficiency Virus (HIV), Chicken Pox, Measles, Mumps, Rubella (Yoruba Measles), Pertussis, Clostridium Difficile, Cancer, Breast Cancer, Cervical Cancer, Colorectal Cancer, Lung Cancer, Ovarian Cancer, Prostate Cancer or Testicular Cancer Family History FAMILY HISTORY: Negative Family Psychiatric Problems, Family Respiratory Disorders, Family Cardiac Disorders, Family Gastrointestinal Problems, Family Cancer, Family Surgery or Family Anesthesia Reaction Surgical History SURGICAL: Positive Vascular Surgery (left leg), Eye Surgery and Amputation (left toes); Negative Coronary Stent, Cardiac Catheterization, Pacemaker, Angiogram, Auto Implanted Cardiovert Defib, Carotid Endarterectomy, Endocrine Surgery, Thyroidectomy, Ear Surgery, Tympanostomy Tube, Nose Surgery, Oral Surgery, Tonsillectomy, Adenoidectomy, Corneal Transplant, Throat Surgery, Abdominal Surgery, Tracheostomy, Nephrectomy, Joint Replacement, Open Reduction Internal Fixation, Arthroscopy, Neurologic Surgery, Brain Shunt, Mastectomy, Lumpectomy, Hysterectomy, Tubal Ligation, Section, Vasectomy or Organ Transplant Social History SMOKING STATUS: Never smoker SECOND HAND EXPOSURE: No SUBSTANCE USE: former substance user and methamphetamine (Former, last used 07/2023 months ago.) ED Exam Narrative Physical exam: GENERAL APPEARANCE: alert and oriented x 4, well-developed, well-nourished, no acute distress VITALS: All vitals were reviewed and the pulse ox is 95% on room air, which is normal according to my interpretation. HEENT: Normocephalic, atraumatic; pupils equal, round, reactive to light; subtle right horizontal nystagmus; mucous membranes pink, moist; oropharynx clear NECK: Supple LUNGS: CTABL; no wheezes, no rales, no rhonchi HEART: Regular rate, regular rhythm; normal S1, S2; no murmurs ABDOMEN: non distended; normal BS; soft, no tenderness, no guarding, no rebound; no masses, no organomegaly, no hernia BACK: no CVA tenderness EXTREMITIES: atraumatic; no edema; left-sided hemiparesis NEUROLOGIC: awake; alert and oriented x4; cranial nerves II-XII grossly intact; no focal sensory or motor deficits PSYCHIATRIC: appropriate mood and affect SKIN: warm, dry, normal color; no rashes Course Quality Measures none Orders Category Date Time Status EKG (ED ONLY) *Do not use* NOW Care 10/04/24 19:20 Completed IV [Insert IV] NOW Care 10/04/24 19:10 Completed EKG (ED Only) Stat Exams 10/04/24 19:20 Ordered DiphenhydrAMINE INJ [Benadryl Inj] Med 10/04/24 19:09 Discontinued 12.5 mg IVP X1 ONE Ketorolac Inj [Toradol Inj] Med 10/04/24 19:09 Discontinued 30 mg IVP X1 ONE Meclizine HCl [Antivert] Med 10/04/24 19:09 Discontinued 50 mg PO X1 ONE Metoclopramide Inj [Reglan Inj] Med 10/04/24 19:09 Discontinued 10 mg IVP X1 ONE Reevaluation(s) Reevaluation #1: Patient states he his headache and dizziness have subsided after receiving Meclizine, Toradol, Reglan, and Benadryl. Patient is stable to be discharged. Time: 21:15 Vital Signs Vital signs: Vital Signs Temperature 97.9 F 10/04/24 19:17 Pulse Rate 81 10/04/24 19:17 Respiratory Rate 18 10/04/24 19:17 Blood Pressure 212/126 H 10/04/24 19:17 Pulse Oximetry (%) 94 L 10/04/24 19:17 Oxygen Delivery Method Room Air 10/04/24 19:17 [facility] Patient data External records reviewed:: [facility] previous records (Per chart review, patient was seen here yesterday for a chronic headache.) Clinical information provided by:: patient and EMS Social determinants that could affect healthcare access:: housing (Pt resides in a SNF.) Patient has the following chronic illnesses:: CVA, HTN How is presenting disease/condition affected by chronic disease/condition?: caused by Evaluation data The following diagnostics were reviewed and interpreted by me:: EKG tracing(s) Lab and/or radiology exams considered but not ordered:: none Interpretation Summary: EKG done at 1915. NSR, rate of 80, normal axis, no ectopy, no acute ischemia, according to my interpretation. Medications Medications considered but not ordered:: none Medication administrations:: Medication Administration History Discontinued Medications Diphenhydramine HCl (Diphenhydramine Inj 50 Mg/Ml Vial) 12.5 mg IVP X1 ONE Stop: 10/04/24 19:10 Last Admin: 10/04/24 19:32 Dose: 12.5 mg Documented By: CHADD Ketorolac Tromethamine (Ketorolac Inj 30 Mg/Ml Vial) 30 mg IVP X1 ONE Stop: 10/04/24 19:10 Last Admin: 10/04/24 19:30 Dose: 30 mg Documented By: CHADD Meclizine HCl (Meclizine Hcl 25 Mg Tablet) 50 mg PO X1 ONE Stop: 10/04/24 19:10 Last Admin: 10/04/24 19:32 Dose: 50 mg Documented By: CHADD Metoclopramide HCl (Metoclopramide Inj 5 Mg/Ml Vial 2 Ml) 10 mg IVP X1 ONE; Protocol Stop: 10/04/24 19:10 Last Admin: 10/04/24 19:31 Dose: 10 mg Documented By: CHADD see above Consultations Consultation(s) initiated? (list below): No Diagnosis Differential Diagnosis ED Complaint MDM: central vertigo, hypertensive headache, cluster headache, tension headache Most likely diagnosis given after review of the tests above:: Other DDx: migraine, central vertigo Final Dx: see below Admission Indicated Admission indicated?: not indicated Explain why admission is indicated or not indicated:: Admission criteria not met. Admission Request Was there a request for admission?: No Disposition Plan Disposition Plan: Discharge Discharge Attestation Discharge Attestation: The patient and all family members were given an opportunity to ask questions and understood the discharge instructions. Discharge instructions specifically effects, indications for sooner follow up or return to the emergency department, and the expected course of current diagnosis. Patient condition: Stable Medical Decision Making MDM Narrative MDM Narrative: Scribe Attestation: 10/04/24 Gwen Reza am scribing for and in the presence of Dr. Navarro. Differential Diagnosis Differential Diagnosis: central vertigo, hypertensive headache, cluster headache, tension headache Discharge Plan Plan Patient Disposition: Xfer [facility]sp Acute Disposition Comment: Stable for discharge Patient condition on transfer: Stable Prescriptions/Referrals Prescriptions/Med Rec: New meclizine 25 mg tablet 25 mg PO TID 10 Days Qty: 30 0RF metoclopramide HCl [Reglan] 5 mg tablet 5 mg PO QDAY PRN (Reason: headache) 10 Days Qty: 10 0RF Rx Instructions: To be taken with Benadryl diphenhydramine HCl [Children's Benadryl Allergy] 12.5 mg tablet,chewable 12.5 mg PO TID PRN (Reason: headache) 10 Days Qty: 30 0RF Rx Instructions: To be given with Reglan for headache acetaminophen 500 mg capsule 1,000 mg PO Q6H PRN (Reason: headache) 5 Days Qty: 40 0RF Rx Instructions: To be given with Reglan and Benadryl as needed for headache No Action furosemide 40 mg Tablet 40 mg PO QDAY glipizide 10 mg Tablet 10 mg PO BID calcitriol 0.25 mcg capsule 0.25 mcg PO USEASDIRECTD Rx Instructions: Per patient he taskes every other day. lisinopril 20 mg tablet 20 mg PO 1XD clonidine HCl 0.2 mg tablet 0.2 mg PO BID Qty: 60 0RF carvedilol 12.5 mg Tablet 12.5 mg PO BID Rx Instructions: must administer with a meal/food Kaley-Radha 0.8 mg Tablet 1 tab PO QDAY rosuvastatin 20 mg Tablet 20 mg PO HS cholecalciferol (vitamin D3) 1,250 mcg (50,000 unit) Tablet 1,250 mcg PO QWEEK Eliquis 5 mg Tablet 5 mg PO BID Referrals: Areli Diana MD [Primary Care Provider] - In 1 week Problem List Clinical Impression: Vertigo, Acute tension headache Patient/Caregiver Discharge Instructions Discharge Activity: activity as tolerated Education Materials: Anatomy of the Inner Ear, Vertigo Medicine Tx, ED Headache, Tension Additional Instructions: Please return to the emergency department for any worsening or any further medical problems You should follow-up with your primary care doctor within the next several days When you experience a headache at the care facility, the nursing staff should give you one of the 5 mg metoclopramide, 12.5 mg Benadryl as well as the 1000 mg of acetaminophen. This will most likely get rid of your headache. When you are feeling the sensation of spinning the nursing staff should give you meclizine 25 mg - 50 mg depending on how bad it is. Print Language: Belarusian Stand Alone Forms: Tiffany Award Info., Patient Portal Info Letter
[2024-10-04 19:04] VITALS: PULSE 80; RESP 16; O2SAT 94
[2024-10-04 19:17] VITALS: BP 212/126; PULSE 81; RESP 18; TEMP 36.6; O2SAT 94
[2024-10-04 19:19] VITALS: BMI 37.2
[2024-10-04] MEDS: KETOROLAC INJ 30 MG/ML VIAL IVP (19:30)
[2024-10-04] MEDS: METOCLOPRAMIDE INJ 5 MG/ML VIAL 2 ML 10 MG IVP (19:31)
[2024-10-04] MEDS: MECLIZINE HCL 25 MG TABLET 50 MG PO (19:32)
[2024-10-04] MEDS: DiphenhydrAMINE INJ 50 MG/ML VIAL 12.5 MG IVP (19:32)
[2024-10-04 20:33] VITALS: BP 141/95; PULSE 83; RESP 16; O2SAT 95
[2024-10-04 21:09] VITALS: BP 143/65; PULSE 83; RESP 16; O2SAT 94
--- NOTE | 2024-10-04 22:01 | PC.NURSE ---
ATTEMPTED TO CALL REPORT X2. NO ANSWER
== END 2024-10-04 22:01 ==
PROVIDERS: Emergency Provider Emergency Medicine; PCP Hospitalist
DX: R42 Dizziness and giddiness (principal); G44.209 Tension-type headache, unspecified, not intractable; I10 Essential (primary) hypertension
CPT/HCPCS: 93005; 96374; 96375; 99284; J1200; J1885; J2765; A9270

== ENCOUNTER 2024-10-05 01:51 | Emergency (ER) | payer MEDICAID, SELFPAY ==
[2024-10-05] VITALS (15 sets, daily range): BP systolic 109–207; BP diastolic 71–112; PULSE 70–87; RESP 16–18; TEMP 36.6–36.9; O2SAT 95–99; BMI 37.2
--- NOTE | 2024-10-05 02:08 | EDNOTE_ITS ---
ED General RME/HPI General Chief complaint: General Adult/Misc Complain Stated complaint: PATIENT FEELS DRUNK Time Seen by Provider: 10/05/24 01:53 Arrival date/time: 10/05/24 01:51 RME / HPI RME / HPI narrative: Dr. Navarro?s Main ED Evaluation: 49yo male with pmhx CVA, HTN BIBA from [facility] presents to the ED for a chief complaint of a headache. Patient states his headache and nausea came back after he was discharged from here earlier tonight. He reports associated epigastric pain and anxiety. He denies any other associated symptoms. No known allergies. Related Data Home Medications ?Medication ?Instructions ?Recorded ?Confirmed furosemide 40 mg tablet 40 mg PO QDAY 04/18/24 09/12/24 glipizide 10 mg tablet 10 mg PO BID 04/18/24 09/12/24 calcitriol 0.25 mcg capsule 0.25 mcg PO USEASDIRECTD 08/15/24 09/12/24 lisinopril 20 mg tablet 20 mg PO 1XD 08/15/24 09/12/24 apixaban 5 mg tablet (Eliquis) 5 mg PO BID 09/12/24 09/12/24 carvedilol 12.5 mg tablet 12.5 mg PO BID 09/12/24 09/12/24 cholecalciferol (vitamin D3) 1,250 1,250 mcg PO QWEEK 09/12/24 09/12/24 mcg (50,000 unit) tablet rosuvastatin 20 mg tablet 20 mg PO HS 09/12/24 09/12/24 vitamin B complex-vitamin C-folic 1 tab PO QDAY 09/12/24 09/12/24 acid 0.8 mg tablet (Kaley-Radha) Previous Rx's ?Medication ?Instructions ?Recorded clonidine HCl 0.2 mg tablet 0.2 mg PO BID #60 tabs 09/30/24 acetaminophen 500 mg capsule 1,000 mg (2 x 500 mg) PO Q6H PRN 10/04/24 headache 5 days #40 caps diphenhydramine HCl 12.5 mg 12.5 mg PO TID PRN headache 10 10/04/24 chewable tablet (Children's days #30 tabs Benadryl Allergy) meclizine 25 mg tablet 25 mg PO TID Vertigo 10 days #30 10/04/24 tabs metoclopramide HCl 5 mg tablet 5 mg PO QDAY PRN headache 10 days 10/04/24 (Reglan) #10 tabs Allergies Allergy/AdvReac Type Severity Reaction Status Date / Time No Known Allergies Allergy Verified 09/30/24 10:46 Review of Systems Review of Systems Systems Reviewed: All systems reviewed, normal except as documented Past Medical History Past Medical History NEUROLOGIC: Positive Neurological Disorders and Cerebrovascular Accident; Negative Transient Ischemic Attacks (TIA), Dementia, Alzheimer's Disease, Parkinson's Disease, Brain Tumor, Meningitis, Seizures, Epilepsy, Multiple Sclerosis, Cerebral Palsy, Amyotrophic Lateral Sclerosis (ALS/Edda Gehrig's), Guillain-[place]ning[place] Syndrome, Spina Bifida, Paralysis, Peripheral Neuropathy, Moody's Palsy, Subdural Hematoma, Migraine, Head Trauma, Spinal Cord Injury or Traumatic Brain Injury CARDIAC: Positive Cardiac Disorders, Peripheral Vascular Disease, Hypercholesterolemia, Edema, Cellulitis and Hypertension; Negative Cardiac Arrhythmia, Atrial Fibrillation, Angina, Heart Murmur, Coronary Artery Disease, Atherosclerotic Heart Disease, Aneurysm, Congestive Heart Failure, Congenital Heart Disease, Cardiomyopathy or Deep Vein Thrombosis RESPIRATORY: Negative Chronic Obstructive Pulmonary Disease (COPD), Asthma, Bronchitis, Emphysema, Pneumonia, Pulmonary Fibrosis, Cystic Fibrosis, Tuberculosis, Pulmonary Embolism, Pulmonary Edema or Sleep Apnea GASTROINTESTINAL: Positive Gastrointestinal Disorders, Pancreatitis and Obesity; Negative Hepatitis, Cirrhosis, Celiac Disease, Gall Bladder Disease, Gastrointestinal Bleed, Esophageal Varices, Chery's Esophagus, Colitis, Ulcerative Colitis, Diverticulitis, Diverticulosis, Ulcer, Colorectal Cancer, Irritable Bowel, Crohn's Disease, Obstructive Bowel, Hiatal Hernia, Hemorrhoids or Gastroesophageal Reflux Disease GENITOURINARY: Positive Genitourinary Disorders and Dialysis; Negative Renal Disease, Kidney Stones, Inguinal Hernia, Prostate Cancer or Benign Prostatic Hyperplasia REPRODUCTIVE: Negative Breast Cancer, Fibroids, Genital Herpes, Gonorrhea, Syphilis or Testicular Cancer MUSCULOSKELETAL: Positive Musculoskeletal Disorders and Osteomyelitis; Negative Muscular Dystrophy, Myasthenia Gravis, Marfan's Syndrome, Bone Cancer, Arthritis, Rheumatoid Arthritis, Osteoporosis, Degenerative Disk Disease, Gout, Scoliosis, Carpal Tunnel Syndrome, Fibromyalgia, Fractures or Degenerative Joint Disease ENT: Negative Cataracts, Glaucoma, Blind, Retinal Detachment, Ear Infection, Deafness, Head Trauma or Eye Prosthesis ENDOCRINE: Positive Endocrine Disorders and Diabetes Mellitus Type 2; Negative Diabetes Mellitus Type 1, Hypoglycemia, Hyperthyroidism, Hypothyroidism, Parathyroid Disease, Pituitary Disease, Systemic Lupus Erythematosus, Syndrome of Inappropriate Antidiuretic Hormone (SIADH) or Graves' Disease HEMATOLOGIC: Positive Blood Disorders and Anemia; Negative Leukemia, Hemophilia, Thalassemia, Sickle Cell Disease or Clotting Problems PSYCHO/SOCIAL: Positive Recreational Drug Use, Depression and Anxiety; Negative Psychiatric Problems, Schizophrenia, Bipolar Disorder, Behavior Problems, Self-Mutilation, Attention Deficit Disorder, Attention Deficit Hyperactivity Disorder, Depression or Post Traumatic Stress Disorder OTHER HISTORY: Positive Hospitalization; Negative Autoimmune Disease, Down Syndrome, Autism, Developmental Delay, Shingles, Falls, Blood Transfusions, Anesthesia Reactions, Organ Transplant, Chemotherapy, Radiation Therapy, Hyperbaric Therapy, MRSA, VRSA, Vancomycin- Resistant Enterococci, Human Immunodeficiency Virus (HIV), Chicken Pox, Measles, Mumps, Rubella (Lithuanian Measles), Pertussis, Clostridium Difficile, Cancer, Breast Cancer, Cervical Cancer, Colorectal Cancer, Lung Cancer, Ovarian Cancer, Prostate Cancer or Testicular Cancer Family History FAMILY HISTORY: Negative Family Psychiatric Problems, Family Respiratory Disorders, Family Cardiac Disorders, Family Gastrointestinal Problems, Family Cancer, Family Surgery or Family Anesthesia Reaction Surgical History SURGICAL: Positive Vascular Surgery, Eye Surgery and Amputation; Negative Coronary Stent, Cardiac Catheterization, Pacemaker, Angiogram, Auto Implanted Cardiovert Defib, Carotid Endarterectomy, Endocrine Surgery, Thyroidectomy, Ear Surgery, Tympanostomy Tube, Nose Surgery, Oral Surgery, Tonsillectomy, Adenoidectomy, Corneal Transplant, Throat Surgery, Abdominal Surgery, Tracheostomy, Nephrectomy, Joint Replacement, Open Reduction Internal Fixation, Arthroscopy, Neurologic Surgery, Brain Shunt, Mastectomy, Lumpectomy, Hysterectomy, Tubal Ligation, Section, Vasectomy or Organ Transplant Social History SMOKING STATUS: Never smoker SECOND HAND EXPOSURE: No SUBSTANCE USE: former substance user and methamphetamine (Former, last used 07/2023 months ago.) ED Exam Narrative Physical exam: GENERAL APPEARANCE: alert and oriented x 4, well-developed, well-nourished, no acute distress VITALS: All vitals were reviewed and the pulse ox is 99% on room air, which is normal according to my interpretation. HEENT: Normocephalic, atraumatic; pupils equal, round, reactive to light; mucous membranes pink, moist; oropharynx clear NECK: Supple LUNGS: CTABL; no wheezes, no rales, no rhonchi HEART: Regular rate, regular rhythm; normal S1, S2; no murmurs ABDOMEN: non distended; normal BS; soft, no tenderness, no guarding, no rebound; no masses, no organomegaly, no hernia BACK: no CVA tenderness EXTREMITIES: atraumatic; no edema; left-sided hemiparesis NEUROLOGIC: awake; alert and oriented x4; cranial nerves II-XII grossly intact; no focal sensory or motor deficits PSYCHIATRIC: appropriate mood and affect SKIN: warm, dry, normal color; no rashes Course Course Course Narrative: Clonidine ordered due to the patient's BP being 197/110. 0555: Patient's repeat BP is 190/107. Additional meds ordered. Quality Measures none Orders Category Date Time Status Miscellaneous Nursing Order NOW Care 10/05/24 02:27 Active cloNIDine HCL [Catapres] Med 10/05/24 03:40 Discontinued 0.1 mg PO X1 ONE cloNIDine HCL [Catapres] Med 10/05/24 05:53 Discontinued 0.1 mg PO X1 ONE Vital Signs Vital signs: Vital Signs Temperature 97.8 F 10/05/24 01:53 Pulse Rate 80 10/05/24 01:53 Respiratory Rate 18 10/05/24 01:53 Blood Pressure 189/112 H 10/05/24 01:53 Pulse Oximetry (%) 99 10/05/24 01:53 Oxygen Delivery Method Room Air 10/05/24 01:53 [facility] Patient data External records reviewed:: [facility] previous records (Per chart review, patient was seen here earlier tonight for an acute tension headache; this is the patient's 5th visit this week.) Clinical information provided by:: patient Social determinants that could affect healthcare access:: housing (Pt resides in a SNF.) Patient has the following chronic illnesses:: CVA, HTN How is presenting disease/condition affected by chronic disease/condition?: caused by Evaluation data The following diagnostics were reviewed and interpreted by me:: other (specify) (none) Lab and/or radiology exams considered but not ordered:: none Interpretation Summary: none Medications Medications considered but not ordered:: none Medication administrations:: Medication Administration History Discontinued Medications Clonidine (Clonidine Hcl 0.1 Mg Tablet) 0.1 mg PO X1 ONE Stop: 10/05/24 03:41 Last Admin: 10/05/24 04:03 Dose: 0.1 mg Documented By: ZOHRA Clonidine (Clonidine Hcl 0.1 Mg Tablet) 0.1 mg PO X1 ONE Stop: 10/05/24 05:54 see above, if any Consultations Consultation(s) initiated? (list below): No Diagnosis Differential Diagnosis ED Complaint MDM: hypertensive urgency, hypertensive emergency, uncontrolled hypertension Most likely diagnosis given after review of the tests above:: see below Admission Indicated Admission indicated?: not indicated Explain why admission is indicated or not indicated:: pending at signout Admission Request Was there a request for admission?: No Disposition Plan Disposition Plan: other (specify) (Signed out to Dr. Steinberg at 0600 pending re- evaluation.) Medical Decision Making MDM Narrative MDM Narrative: Scribe Attestation: 10/05/24 - Betsy, Gwen Wellington am scribing for and in the presence of Dr. Navarro. Differential Diagnosis Differential Diagnosis: hypertensive urgency, hypertensive emergency, uncontrolled hypertension Discharge Plan Plan Disposition Comment: Stable at signout. Prescriptions/Referrals Prescriptions/Med Rec: No Action furosemide 40 mg Tablet 40 mg PO QDAY glipizide 10 mg Tablet 10 mg PO BID calcitriol 0.25 mcg capsule 0.25 mcg PO USEASDIRECTD Rx Instructions: Per patient he taskes every other day. lisinopril 20 mg tablet 20 mg PO 1XD clonidine HCl 0.2 mg tablet 0.2 mg PO BID Qty: 60 0RF meclizine 25 mg tablet 25 mg PO TID 10 Days Qty: 30 0RF metoclopramide HCl [Reglan] 5 mg tablet 5 mg PO QDAY PRN (Reason: headache) 10 Days Qty: 10 0RF Rx Instructions: To be taken with Benadryl diphenhydramine HCl [Children's Benadryl Allergy] 12.5 mg tablet,chewable 12.5 mg PO TID PRN (Reason: headache) 10 Days Qty: 30 0RF Rx Instructions: To be given with Reglan for headache acetaminophen 500 mg capsule 1,000 mg PO Q6H PRN (Reason: headache) 5 Days Qty: 40 0RF Rx Instructions: To be given with Reglan and Benadryl as needed for headache carvedilol 12.5 mg Tablet 12.5 mg PO BID Rx Instructions: must administer with a meal/food Kaley-Radha 0.8 mg Tablet 1 tab PO QDAY rosuvastatin 20 mg Tablet 20 mg PO HS cholecalciferol (vitamin D3) 1,250 mcg (50,000 unit) Tablet 1,250 mcg PO QWEEK Eliquis 5 mg Tablet 5 mg PO BID Referrals: No Primary/Family,Physician [Primary Care Provider] - In 1 week Problem List Clinical Impression: Chronic headache, Hypertension Patient/Caregiver Discharge Instructions Print Language: Upper Sorbian
[2024-10-05] MEDS: cloNIDine HCL 0.1 MG TABLET PO ×2 (04:03→06:36)
--- NOTE | 2024-10-05 06:12 | PD.EDADDENDU ---
Emergency Room Addendum Addendum Narrative: 0600: Care assumed from Dr. Navarro, the previous shift emergency physician. Past medical, surgical, social and family history reviewed. Vitals and home medications reviewed. I will assume the care of the patient at this time, pending reevaluation after blood pressure medications and final disposition. Please refer to the emergency department record for history and examination from initial visit.? 0954: Reevaluation at this time shows patient under no acute distress and blood pressure now better at 125/79. Physical exam by me shows patient under no acute distress at this time. 1054: Patient remains clinically stable throughout the emergency department visit. Re-assessment at the time of disposition demonstrates that the patient is in no acute distress. We reviewed all the results, analysis, and treatment plans. Patient is amenable to discharge. Strict return precautions were outlined. Patient was discharged in stable condition. Diagnoses: chronic headache, hypertension, hypertensive urgency, headache.
--- NOTE | 2024-10-05 06:40 | PC.NURSE ---
Pt sleeping since arrival. Awakens easily. BP remains high dispite HTN med
[2024-10-05] MEDS: hydrALAZINE INJ 20 MG/ML VIAL 25 MG IV (07:57)
--- NOTE | 2024-10-05 12:08 | PC.CC ---
Alfreda MARTINEZ was consulted by jewelry appraiser Rachel for transportation back to [facility] for patient. Patient confirmed information on facesheet. ASW arranged transportation with [facility] and [facility].
--- NOTE | 2024-10-05 14:45 | PC.NURSE ---
Rn reported to Mia phipps at [facility] eta given of 1500.
== END 2024-10-05 15:15 | disposition skilled nursing facility (03) ==
PROVIDERS: Emergency Provider Emergency Medicine
DX: I16.0 Hypertensive urgency (principal); I10 Essential (primary) hypertension
CPT/HCPCS: 99284; J0360; A9270

== ENCOUNTER 2024-12-04 18:19 | Emergency (ER) | payer MEDICAID, SELFPAY ==
[2024-12-04 18:29] VITALS: BP 127/76; PULSE 74; RESP 16; TEMP 36.5; O2SAT 94
[2024-12-04 18:44] VITALS: PULSE 75; RESP 17; O2SAT 96
--- NOTE | 2024-12-04 18:57 | XR_ITS ---
Examination: Duplex scan of the upper extremity, unilateral right complete Date and time of exam: December 05, 2019 5:10 PM Indications: Right arm pain beginning 3 days ago, swollen, recent dialysis graft placed 2 months ago Technique: Duplex scan of the extremity veins using B-mode/grayscale imaging and Doppler spectral analysis and color flow Attention is directed to internal echogenicity, compression and augmentation involving these veins, color flow assessment, spectral analysis Findings: Major deep venous structures in the extremity demonstrate normal course and caliber. There is no evidence of deep vein thrombosis. Normal color flow and spectral analysis Cephalic basilic veins not visualized Brachial vein proximally visualized Impression: Limited study, no DVT demonstrated Graft appears patent
--- NOTE | 2024-12-04 18:59 | PD.EDADULT ---
ED General RME/HPI General Chief complaint: General Adult/Misc Complain Stated complaint: NEEDS ANTIBIOTICS Time Seen by Provider: 12/04/24 18:57 Arrival date/time: 12/04/24 18:19 CC: Right upper extremity infection HPI patient presents the ER via EMS to determine the patient had a recent dialysis shunt placed in the right upper arm and was concerned it was infected, patient is here to get vancomycin as the facility where he is rehabbing does not have vancomycin available. Patient denies any fever chills nausea vomiting headache complaining of localized surgical site pain. States it was performed by Dr. White here in [place]. Patient is a dialysis patient of Dr. Emerita Pearl, dialyzed Wednesdays and Fridays. RME / HPI RME / HPI narrative: Dr. Navarro?s Main ED Evaluation: 49yo male with pmhx CVA, HTN BIBA from [facility] presents to the ED for a chief complaint of a headache. Patient states his headache and nausea came back after he was discharged from here earlier tonight. He reports associated epigastric pain and anxiety. He denies any other associated symptoms. No known allergies. Related Data Home Medications ?Medication ?Instructions ?Recorded ?Confirmed furosemide 40 mg tablet 40 mg PO QDAY 04/18/24 12/04/24 glipizide 10 mg tablet 10 mg PO BID 04/18/24 12/04/24 rosuvastatin 20 mg tablet 20 mg PO HS 09/12/24 12/04/24 vitamin B complex-vitamin C-folic 1 tab PO QDAY 09/12/24 12/04/24 acid 0.8 mg tablet (Kaley-Radha) apixaban 5 mg tablet (Eliquis) 5 mg PO BID 12/04/24 12/04/24 carvedilol 25 mg tablet (Coreg) 25 mg PO BID 12/04/24 12/04/24 hydralazine 100 mg tablet 100 mg PO QID 12/04/24 12/04/24 hydroxyzine HCl 25 mg tablet 25 mg PO BID 12/04/24 12/04/24 insulin glargine 100 unit/mL (3 15 unit subcut QDAY 12/04/24 12/04/24 mL) subcutaneous pen linagliptin 5 mg tablet (Tradjenta) 5 mg PO QDAY 12/04/24 12/04/24 meclizine 25 mg tablet 25 mg PO Q8HR PRN dizziness 12/04/24 12/04/24 nicardipine 20 mg capsule 20 mg PO BID 12/04/24 12/04/24 ondansetron HCl 4 mg tablet 4 mg PO Q4H PRN nausea and vomiting 12/04/24 12/04/24 tramadol 50 mg tablet 50 mg PO Q6H PRN pain 12/04/24 12/04/24 Allergies Allergy/AdvReac Type Severity Reaction Status Date / Time No Known Allergies Allergy Verified 09/30/24 10:46 Review of Systems Review of Systems Systems Reviewed: All systems reviewed, normal except as documented Narrative Review of Systems: GEN: No fever, no chills, no weight loss EYES: No discharge, no visual changes, no pain HEENT: No ear pain, no congestion, no sore throat PULM: No shortness of breath, no cough, no congestion CV: No chest pain, no dyspnea on exertion, no palpitations GI: No nausea, no vomiting, no diarrhea, no pain, no constipation : No frequency, no urgency, no dysuria MUSC/SKEL: No joint pain, no back pain, upper extremity pain, right. SKIN: No rash PSYCH: No hallucinations, no depression HEME/LYMPH: No easy bleeding or bruising tendencies NEURO: No weakness, no headache Past Medical History Past Medical History NEUROLOGIC: Positive Neurological Disorders and Cerebrovascular Accident; Negative Transient Ischemic Attacks (TIA), Dementia, Alzheimer's Disease, Parkinson's Disease, Brain Tumor, Meningitis, Seizures, Epilepsy, Multiple Sclerosis, Cerebral Palsy, Amyotrophic Lateral Sclerosis (ALS/Edda Gehrig's), Guillain-Tyler Syndrome, Spina Bifida, Paralysis, Peripheral Neuropathy, Moody's Palsy, Subdural Hematoma, Migraine, Head Trauma, Spinal Cord Injury or Traumatic Brain Injury CARDIAC: Positive Cardiac Disorders, Peripheral Vascular Disease, Hypercholesterolemia, Edema, Cellulitis and Hypertension; Negative Cardiac Arrhythmia, Atrial Fibrillation, Angina, Heart Murmur, Coronary Artery Disease, Atherosclerotic Heart Disease, Aneurysm, Congestive Heart Failure, Congenital Heart Disease, Cardiomyopathy or Deep Vein Thrombosis RESPIRATORY: Negative Chronic Obstructive Pulmonary Disease (COPD), Asthma, Bronchitis, Emphysema, Pneumonia, Pulmonary Fibrosis, Cystic Fibrosis, Tuberculosis, Pulmonary Embolism, Pulmonary Edema or Sleep Apnea GASTROINTESTINAL: Positive Gastrointestinal Disorders, Pancreatitis and Obesity; Negative Hepatitis, Cirrhosis, Celiac Disease, Gall Bladder Disease, Gastrointestinal Bleed, Esophageal Varices, Chery's Esophagus, Colitis, Ulcerative Colitis, Diverticulitis, Diverticulosis, Ulcer, Colorectal Cancer, Irritable Bowel, Crohn's Disease, Obstructive Bowel, Hiatal Hernia, Hemorrhoids or Gastroesophageal Reflux Disease GENITOURINARY: Positive Genitourinary Disorders and Dialysis; Negative Renal Disease, Kidney Stones, Inguinal Hernia, Prostate Cancer or Benign Prostatic Hyperplasia REPRODUCTIVE: Negative Breast Cancer, Fibroids, Genital Herpes, Gonorrhea, Syphilis or Testicular Cancer MUSCULOSKELETAL: Positive Musculoskeletal Disorders and Osteomyelitis; Negative Muscular Dystrophy, Myasthenia Gravis, Marfan's Syndrome, Bone Cancer, Arthritis, Rheumatoid Arthritis, Osteoporosis, Degenerative Disk Disease, Gout, Scoliosis, Carpal Tunnel Syndrome, Fibromyalgia, Fractures or Degenerative Joint Disease ENT: Negative Cataracts, Glaucoma, Blind, Retinal Detachment, Ear Infection, Deafness, Head Trauma or Eye Prosthesis ENDOCRINE: Positive Endocrine Disorders and Diabetes Mellitus Type 2; Negative Diabetes Mellitus Type 1, Hypoglycemia, Hyperthyroidism, Hypothyroidism, Parathyroid Disease, Pituitary Disease, Systemic Lupus Erythematosus, Syndrome of Inappropriate Antidiuretic Hormone (SIADH) or Graves' Disease HEMATOLOGIC: Positive Blood Disorders and Anemia; Negative Leukemia, Hemophilia, Thalassemia, Sickle Cell Disease or Clotting Problems PSYCHO/SOCIAL: Positive Recreational Drug Use, Depression and Anxiety; Negative Psychiatric Problems, Schizophrenia, Bipolar Disorder, Behavior Problems, Self-Mutilation, Attention Deficit Disorder, Attention Deficit Hyperactivity Disorder, Depression or Post Traumatic Stress Disorder OTHER HISTORY: Positive Hospitalization; Negative Autoimmune Disease, Down Syndrome, Autism, Developmental Delay, Shingles, Falls, Blood Transfusions, Anesthesia Reactions, Organ Transplant, Chemotherapy, Radiation Therapy, Hyperbaric Therapy, MRSA, VRSA, Vancomycin-Resistant Enterococci, Human Immunodeficiency Virus (HIV), Chicken Pox, Measles, Mumps, Rubella (Tajik Measles), Pertussis, Clostridium Difficile, Cancer, Breast Cancer, Cervical Cancer, Colorectal Cancer, Lung Cancer, Ovarian Cancer, Prostate Cancer or Testicular Cancer Family History FAMILY HISTORY: Negative Family Psychiatric Problems, Family Respiratory Disorders, Family Cardiac Disorders, Family Gastrointestinal Problems, Family Cancer, Family Surgery or Family Anesthesia Reaction Surgical History SURGICAL: Positive Vascular Surgery, Eye Surgery and Amputation; Negative Coronary Stent, Cardiac Catheterization, Pacemaker, Angiogram, Auto Implanted Cardiovert Defib, Carotid Endarterectomy, Endocrine Surgery, Thyroidectomy, Ear Surgery, Tympanostomy Tube, Nose Surgery, Oral Surgery, Tonsillectomy, Adenoidectomy, Corneal Transplant, Throat Surgery, Abdominal Surgery, Tracheostomy, Nephrectomy, Joint Replacement, Open Reduction Internal Fixation, Arthroscopy, Neurologic Surgery, Brain Shunt, Mastectomy, Lumpectomy, Hysterectomy, Tubal Ligation, Section, Vasectomy or Organ Transplant Social History SMOKING STATUS: Never smoker SECOND HAND EXPOSURE: No SUBSTANCE USE: former substance user and methamphetamine (Former, last used 07/2023 months ago.) ED Exam Narrative Physical exam: [General: Obese in mild discomfort but not in any acute distress Head normocephalic HEENT: Eyes pupils are PERRLA EOMs are within acceptable limits Neck is supple nontender Chest equal chest rise nontender to palpation Respiratory: Clear to auscultation no wheezes crackles or rubs CV: Rate rhythm is regular no murmurs rubs or clicks Abdomen is distended secondary to body habitus soft nontender no masses positive bowel sounds all 4 quadrants Back: No CVA tenderness no spinous process tenderness from cervical spine thoracic and lumbar spine Skin: Longitudinal surgical site with minimal surrounding edema, and a small amount of erythema. Surgical tape and incision linear dressing intact., no significant oozing, bleeding, no bulla open ulcerations or exudate.. No streaking up the arm into the axilla. Not warm to touch on palpation otherwise skin is intact no petechiae rash induration ulceration or crepitus. Right anterior chest dialysis shunt site clean dry and intact with a dressing. Extremities: Moving all extremity against resistance cap refill less than 2 seconds neurosensory intact Neuro: Awake alert oriented x3 Glascow coma 15 no focal deficits] Course Course Course Narrative: Clonidine ordered due to the patient's BP being 197/110. 0555: Patient's repeat BP is 190/107. Additional meds ordered. Quality Measures none Orders Category Date Time Status Saline [Insert IV] NOW Care 12/04/24 18:57 Completed US venous doppler UE RT Stat Exams 12/04/24 18:57 Completed Blood Culture (Lab) Stat Lab 12/04/24 19:20 Received CBC Stat Lab 12/04/24 19:27 Completed CMP [Comprehensive Metabolic Panel] Stat Lab 12/04/24 19:27 Completed Vancomycin Inj 1,000 mg Med 12/04/24 18:58 Discontinued Sodium Chloride 0.9% 250 ml [Ns] 250 ml IV X1 Vancomycin Inj 1,000 mg Med 12/04/24 23:46 Discontinued Sodium Chloride 0.9% 250 ml [Ns] 250 ml IV X1 oxyCODONE/APAP 5/325 [Percocet 5/325] Med 12/04/24 22:23 Discontinued 1 tab PO X1 ONE Vital Signs Vital signs: Vital Signs Temperature 97.7 F 12/04/24 18:29 Pulse Rate 74 12/04/24 18:29 Respiratory Rate 16 12/04/24 18:29 Blood Pressure 127/76 12/04/24 18:29 Pulse Oximetry (%) 94 L 12/04/24 18:29 Oxygen Delivery Method Room Air 12/04/24 18:29 MDM Patient data External records reviewed:: [facility] previous records (Per chart review, patient was seen here earlier tonight for an acute tension headache; this is the patient's 5th visit this week.) Clinical information provided by:: patient Social determinants that could affect healthcare access:: housing (Pt resides in a SNF.) Patient has the following chronic illnesses:: CVA, HTN How is presenting disease/condition affected by chronic disease/condition?: caused by Evaluation data The following diagnostics were reviewed and interpreted by me:: other (specify) (none) Lab and/or radiology exams considered but not ordered:: none Interpretation Summary: none Medications Medications considered but not ordered:: none Medication administrations:: Medication Administration History Discontinued Medications Vancomycin HCl 1,000 mg/ (Sodium Chloride) 250 mls @ 150 mls/hr IV X1 ONE Stop: 12/04/24 20:37 Last Admin: 12/04/24 22:05 Dose: Not Given Documented By: AC Non-Admin Reason: Cancelled by Provider Vancomycin HCl 1,000 mg/ (Sodium Chloride) 250 mls @ 150 mls/hr IV X1 ONE Stop: 12/05/24 01:25 Last Infusion: 12/05/24 01:42 Dose: Infused Documented By: Admin: 12/04/24 23:56 Dose: 150 mls/hr Documented By: CCT Oxycodone/Acetaminophen (Oxycodone/Apap 5/325 Tablet) 1 tab PO X1 ONE Stop: 12/04/24 22:24 Last Admin: 12/04/24 22:28 Dose: 1 tab Documented By: CCT see above, if any Consultations Consultation(s) initiated? (list below): No Diagnosis Differential Diagnosis ED Complaint MDM: hypertensive urgency, hypertensive emergency, uncontrolled hypertension Most likely diagnosis given after review of the tests above:: see below Admission Indicated Admission indicated?: not indicated Explain why admission is indicated or not indicated:: pending at signout Admission Request Was there a request for admission?: No Disposition Plan Disposition Plan: other (specify) (Signed out to Dr. Steinberg at 0600 pending re-evaluation.) Medical Decision Making MDM Narrative MDM Narrative: Scribe Attestation: 10/05/24 Gwen Reza am scribing for and in the presence of Dr. Navarro. Differential Diagnosis Differential Diagnosis: hypertensive urgency, hypertensive emergency, uncontrolled hypertension Lab Data 12/04/24 19:27 12/04/24 19:27 Labs: Lab Results 12/04/24 Range/Units 19:27 WBC 5.6 (3.8-10.6) Thou/mm3 RBC 3.38 L (4.50-5.90) Miln/mm3 Hgb 9.7 L (13.5-16.0) g/dL Hct 30.2 L (41.0-53.0) % MCV 89 (80-100) fL MCH 28.7 (25.0-35.0) pg MCHC 32.1 (31.0-37.0) g/dl RDW Std Deviation 46.2 H (35.1-43.9) fL Plt Count 175 (140-440) Thou/mm3 Neut % (Auto) 62 (37-80) % Lymph % (Auto) 25 (10-50) % Ponce % (Auto) 10 (0-12) % Eos % (Auto) 2 (0-10) % Baso % (Auto) 0 (0-2.5) % Neut # (Auto) 3.5 (1.8-7.7) Thou/mm3 Lymph # (Auto) 1.4 (1.0-4.8) Thou/mm3 Ponce # (Auto) 0.6 (0.0-0.8) Thou/mm3 Eos # (Auto) 0.1 (0.0-0.5) Thou/mm3 Baso # (Auto) 0.0 (0.0-0.2) Thou/mm3 Immature Gran # (Auto) 0.01 H (0.00-0.00) Thou/mm3 Absolute Nucleated RBC 0.00 (0.00-0.00) Thou/mm3 Immature Gran % 0 (0-0) % Nucleated RBC % 0 (0) /100 WBC Sodium 139 (136-145) mMol/L Potassium 4.4 (3.4-5.1) mMol/L Chloride 101 (98-107) mMol/L Carbon Dioxide 26.7 (20.0-31.0) mMol/L Anion Gap 11 (7-16) BUN 49 H (9-23) mg/dL Creatinine 7.5 H* (0.6-1.3) mg/dL Estim Creat Clear Calc Not Performed. eGFR 8 L* (60 - ) See Note BUN/Creatinine Ratio 7 L (12-20) Ratio Glucose 205 H (74-106) mg/dL Calculated Osmolality 296 H (275-295) Calcium 8.4 (8.3-10.6) mg/dL Corrected Calcium 8.7 (8.5-10.1) mg/dL Total Bilirubin < 0.2 L (0.3-1.2) mg/dL AST 19 (0-34) U/L ALT < 7 L (10-49) U/L Alkaline Phosphatase 99 (46-116) U/L Total Protein 6.2 (5.7-8.2) gm/dL Albumin 3.6 (3.5-5.0) gm/dL Globulin 2.6 (2.3-3.5) gm/dL Albumin/Globulin Ratio 1.4 (1.2-2.2) Discharge Plan Plan Patient Disposition: Xfer Skilled Nsg Fac ([facility]) Disposition Comment: Stable for discharge to the SNF Patient condition on transfer: Stable Prescriptions/Referrals Prescriptions/Med Rec: No Action furosemide 40 mg Tablet 40 mg PO QDAY Rx Instructions: Hold for SBP<100 or DBP <60 glipizide 10 mg Tablet 10 mg PO BID carvedilol [Coreg] 25 mg tablet 25 mg PO BID Rx Instructions: must administer with a meal/food Eliquis 5 mg tablet 5 mg PO BID hydralazine 100 mg tablet 100 mg PO QID hydroxyzine HCl 25 mg tablet 25 mg PO BID insulin glargine 100 unit/mL (3 mL) insulin pen 15 unit subcut QDAY Rx Instructions: Hold if blood sugar <100 meclizine 25 mg tablet 25 mg PO Q8HR PRN (Reason: dizziness) nicardipine 20 mg capsule 20 mg PO BID Rx Instructions: Hold for SBP<100 or DBP <60 Tradjenta 5 mg tablet 5 mg PO QDAY tramadol 50 mg tablet 50 mg PO Q6H PRN (Reason: pain) ondansetron HCl 4 mg tablet 4 mg PO Q4H PRN (Reason: nausea and vomiting) Rx Instructions: give 1st dose 30min before emetogenic chemo Kaley-Radha 0.8 mg Tablet 1 tab PO QDAY rosuvastatin 20 mg Tablet 20 mg PO HS Referrals: Master Wellington MD [Primary Care Provider] - In 1 week Problem List Clinical Impression: Medication administered, Encounter for post surgical wound check Patient/Caregiver Discharge Instructions Discharge Activity: activity as tolerated Education Materials: IV Care: Using IV Antibiotics Additional Instructions: Please return to the emergency department if you have any worsening or any further medical problems. Otherwise you should follow-up with your primary care doctor within the next several days Print Language: Sinhala Stand Alone Forms: [employer]iffany Award Info., Patient Portal Info Letter
[2024-12-04 19:12] VITALS: BP 122/72; PULSE 73; RESP 16; TEMP 36.7; O2SAT 95
[2024-12-04 19:25] VITALS: BMI 37.8
[2024-12-04 19:45] LABS: Basophils % (Auto) 0 % (0-2.5); Eosinophils # (Auto) 0.1 Thou/mm3 (0.0-0.5); Eosinophils % (Auto) 2 % (0-10); Hematocrit 30.2 % (41.0-53.0); Hemoglobin 9.7 g/dL (13.5-16.0); Immature Granulocytes % (Auto) 0 % (0-0); Immature Granulocytes Auto 0.01 Thou/mm3 (0.00-0.00); Lymphocytes # (Auto) 1.4 Thou/mm3 (1.0-4.8); Lymphocytes % (Auto) 25 % (10-50); Mean Corpuscular HGB Conc 32.1 g/dl (31.0-37.0); Mean Corpuscular Hemoglobin 28.7 pg (25.0-35.0); Mean Corpuscular Volume 89 fL (80-100); Monocytes # (Auto) 0.6 Thou/mm3 (0.0-0.8); Monocytes % (Auto) 10 % (0-12); Neutrophils # (Auto) 3.5 Thou/mm3 (1.8-7.7); Neutrophils % (Auto) 62 % (37-80); Nucleated Red Blood Cell % 0 /100 WBC (0); Platelet Count 175 Thou/mm3 (140-440); RDW Standard Deviation 46.2 fL (35.1-43.9); Red Blood Count 3.38 Miln/mm3 (4.50-5.90); White Blood Count 5.6 Thou/mm3 (3.8-10.6)
[2024-12-04 20:14] LABS: Alanine Aminotransferase < 7 U/L (10-49); Albumin, Serum 3.6 gm/dL (3.5-5.0); Albumin/Globulin Ratio 1.4 (1.2-2.2); Alkaline Phosphatase 99 U/L (46-116); Anion Gap 11 (7-16); Aspartate Amino Transferase 19 U/L (0-34); BUN/Creatinine Ratio 7 Ratio (12-20); Bilirubin,Total < 0.2 mg/dL (0.3-1.2); Blood Urea Nitrogen 49 mg/dL (9-23); Calcium 8.4 mg/dL (8.3-10.6); Calcium (Corrected) 8.7 mg/dL (8.5-10.1); Carbon Dioxide 26.7 mMol/L (20.0-31.0); Chloride 101 mMol/L (98-107); Creatinine (Component) 7.5 mg/dL (0.6-1.3); Globulin 2.6 gm/dL (2.3-3.5); Glucose 205 mg/dL (74-106); Osmolality,Calculated 296 (275-295); Potassium 4.4 mMol/L (3.4-5.1); Sodium 139 mMol/L (136-145); Total Protein 6.2 gm/dL (5.7-8.2); eGFR 8 See Note
[2024-12-04 21:15] VITALS: BP 136/90; PULSE 68; RESP 12; TEMP 36.4; O2SAT 95
[2024-12-04] MEDS: oxyCODONE/APAP 5/325 TABLET 1 TAB PO (22:28)
--- NOTE | 2024-12-04 23:01 | PD.EDADDENDU ---
Emergency Room Addendum Addendum Narrative: 230: Care assumed from Dong Sims NP. Past medical, surgical, social and family history reviewed. Vitals and home medications reviewed. Results and treatment plan discussed. I will assume the care of the patient at this time and will follow the patient, pending US venous of the right upper extremity. Please refer to the emergency department record for history and examination from initial visit. Patient was sent over due to [facility] not having vancomycin available at their facility until Thursday or Thursday. Vancomycin reordered. Patient can be discharged back to the facility after antibiotics. RADIOLOGY RESULTS: [facility] Report Signed Patient: AGUILA YOO Record#: [id number] Birthdate: 1975 Age/Sex: 49 / M Location: [facility] Attending Dr: Ordering Physician: Dong Sims NP Date of Service: 12/04/24 Procedure(s): US venous doppler UE RT Accession Number(s): [id number] cc: Master Wellington MD; Dong Sims NP; Jimbo Mtz MD~ Examination: Duplex scan of the upper extremity, unilateral right complete Date and time of exam: December 05, 2019 5:10 PM Indications: Right arm pain beginning 3 days ago, swollen, recent dialysis graft placed 2 months ago Technique: Duplex scan of the extremity veins using B-mode/grayscale imaging and Doppler spectral analysis and color flow Attention is directed to internal echogenicity, compression and augmentation involving these veins, color flow assessment, spectral analysis Findings: Major deep venous structures in the extremity demonstrate normal course and caliber. There is no evidence of deep vein thrombosis. Normal color flow and spectral analysis Cephalic basilic veins not visualized Brachial vein proximally visualized Impression: Limited study, no DVT demonstrated Graft appears patent Dictated By: Jimbo Mtz MD Signed By: <Electronically signed by Jimbo Mtz MD in [place] 12/04/24 1164
[2024-12-04] MEDS: Vancomycin Inj 1,000 MG in SODIUM CHLORIDE 0.9% 250 ML 250 ML 150 MG IV (23:56)
[2024-12-05] VITALS: BP 148/98; PULSE 74; RESP 16; TEMP 36.5; O2SAT 95
--- NOTE | 2024-12-05 01:30 | PC.NURSE ---
Report given to Karlee phipps at [facility].
--- NOTE | 2024-12-05 01:55 | PC.NURSE ---
[place] here to transport pt to [facility].
[2024-12-05 02:00] VITALS: BP 153/85; PULSE 71; RESP 19; TEMP 36.5; O2SAT 95
== END 2024-12-05 02:00 | disposition skilled nursing facility (03) ==
PROVIDERS: Registered Nurse General Practice; Emergency Provider Emergency Medicine; PCP Family Medicine
DX: Z48.00 Encounter for change or removal of nonsurgical wound dressing (principal); F41.9 Anxiety disorder, unspecified; R10.13 Epigastric pain; R51.9 Headache, unspecified; Z99.2 Dependence on renal dialysis; Z86.73 Personal history of transient ischemic attack (TIA), and cerebral infarction without residual deficits; I10 Essential (primary) hypertension
CPT/HCPCS: 36415; 80053; 85025; 87040; 93971; 96365; 96366; 99284; J3371; J7050; A9270

== ENCOUNTER 2024-12-14 08:11 | Inpatient (IN) | payer MEDICAID, SELFPAY ==
[2024-12-14] VITALS (40 sets, daily range): BP systolic 95–234; BP diastolic 49–124; PULSE 78–99; RESP 12–85; TEMP 36.1–37.3; O2SAT 94–100; BMI 39.6; BMI 78.0
--- NOTE | 2024-12-14 08:17 | PC.NURSE ---
Patient to er via ems from [facility], vomiting blood x 2 hrs, approx. 250ml at facility. Currently patient states he has been vomiting blood since last pm and has had generalized abdoninal pain x [address] Steinberg at bedside, call light within reach.
--- NOTE | 2024-12-14 08:24 | EKG_ITS ---
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
--- NOTE | 2024-12-14 08:24 | PD.EDGIBLD ---
ED GI Bleed RME/HPI General Chief complaint: GI Bleed Stated complaint: VOMITING BLOOD Time Seen by Provider: 12/14/24 08:17 Arrival date/time: 12/14/24 08:11 RME / HPI RME / HPI Narrative: DR. STEINBERG MAIN ED EVALUATION: 49 year old male with past medical history significant for CVA and hypertension presents to the Emergency Department [facility] from [facility] with complaint of vomiting blood onset 3 days. Symptoms are moderate. No blood in stools or black stools. Patient complains of abdominal pain. Pain is described as aching and rated moderate in severity. Related Data Home Medications ?Medication ?Instructions ?Recorded ?Confirmed furosemide 40 mg tablet 40 mg PO QDAY 04/18/24 12/04/24 glipizide 10 mg tablet 10 mg PO BID 04/18/24 12/04/24 rosuvastatin 20 mg tablet 20 mg PO HS 09/12/24 12/04/24 vitamin B complex-vitamin C-folic 1 tab PO QDAY 09/12/24 12/04/24 acid 0.8 mg tablet (Kaley-Radha) apixaban 5 mg tablet (Eliquis) 5 mg PO BID 12/04/24 12/04/24 carvedilol 25 mg tablet (Coreg) 25 mg PO BID 12/04/24 12/04/24 hydralazine 100 mg tablet 100 mg PO QID 12/04/24 12/04/24 hydroxyzine HCl 25 mg tablet 25 mg PO BID 12/04/24 12/04/24 insulin glargine 100 unit/mL (3 15 unit subcut QDAY 12/04/24 12/04/24 mL) subcutaneous pen linagliptin 5 mg tablet (Tradjenta) 5 mg PO QDAY 12/04/24 12/04/24 meclizine 25 mg tablet 25 mg PO Q8HR PRN dizziness 12/04/24 12/04/24 nicardipine 20 mg capsule 20 mg PO BID 12/04/24 12/04/24 ondansetron HCl 4 mg tablet 4 mg PO Q4H PRN nausea and vomiting 12/04/24 12/04/24 tramadol 50 mg tablet 50 mg PO Q6H PRN pain 12/04/24 12/04/24 Allergies Allergy/AdvReac Type Severity Reaction Status Date / Time No Known Allergies Allergy Verified 09/30/24 10:46 Review of Systems Review of Systems Systems Reviewed: All systems reviewed, normal except as documented Narrative Review of Systems: GEN: No fever, no chills, no weight loss EYES: No discharge, no visual changes, no pain HEENT: No ear pain, no congestion, no sore throat PULM: No shortness of breath, no cough, no congestion CV: No chest pain, no dyspnea on exertion, no palpitations GI: No nausea, + vomiting blood (see HPI), no diarrhea, + abdominal pain, no constipation : No frequency, no urgency and no dysuria MUSC/SKEL: No joint pain, no back pain SKIN: No rash PSYCH: No hallucinations, no depression HEME/LYMPH: No easy bleeding or bruising tendencies NEURO: No weakness, no headache Past Medical History Past Medical History NEUROLOGIC: Positive Neurological Disorders and Cerebrovascular Accident CARDIAC: Positive Cardiac Disorders, Peripheral Vascular Disease, Hypercholesterolemia, Edema, Cellulitis and Hypertension GASTROINTESTINAL: Positive Gastrointestinal Disorders, Pancreatitis and Obesity GENITOURINARY: Positive Genitourinary Disorders and Dialysis (Thu, thu, thursday) MUSCULOSKELETAL: Positive Musculoskeletal Disorders and Osteomyelitis ENDOCRINE: Positive Endocrine Disorders and Diabetes Mellitus Type 2 HEMATOLOGIC: Positive Blood Disorders and Anemia PSYCHO/SOCIAL: Positive Recreational Drug Use, Depression and Anxiety OTHER HISTORY: Positive Hospitalization Surgical History SURGICAL: Positive Vascular Surgery, Eye Surgery and Amputation Social History SMOKING STATUS: Former smoker SECOND HAND EXPOSURE: No SUBSTANCE USE: former substance user and methamphetamine (Former, last used 07/2023 months ago.) ED Exam Narrative Physical exam: GENERAL APPEARANCE: alert and oriented x 4, well-developed, well-nourished, no acute distress VITALS: All vitals were reviewed and the pulse ox is 99% on 2 L/min via a nasal cannula. HEENT: Normocephalic, atraumatic; pupils equal, round, reactive to light; EOMI; mucous membranes pink, moist; oropharynx clear NECK: Supple LUNGS: CTABL; no wheezes, no rales, no rhonchi CHEST: Right anterior chest dialysis shunt site clean dry and intact with a dressing. HEART: Regular rate, regular rhythm; normal S1, S2; no murmurs ABDOMEN: non distended; normal BS; soft, no tenderness, no guarding, no rebound; no masses, no organomegaly, no hernia BACK: no CVA tenderness EXTREMITIES: atraumatic; no edema; right arm dialysis fistula NEUROLOGIC: awake; alert and oriented x4; cranial nerves II-XII grossly intact; no focal sensory or motor deficits PSYCHIATRIC: appropriate mood and affect SKIN: warm, dry, normal color; no rashes. 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 NOW Care 12/14/24 08:24 Active EKG (ED ONLY) *Do not use* NOW Care 12/14/24 08:[address] abdomen pelvis wo con Stat Exams 12/14/24 10:11 Completed EKG (ED Only) Stat Exams 12/14/24 08:24 Draft XR chest 1V portable Stat Exams 12/14/24 08:24 Completed B-Type Natriuretic Peptide Stat Lab 12/14/24 09:00 Completed Blood Culture (Lab) Stat Lab 12/14/24 08:50 Received CBC Stat Lab 12/14/24 09:00 Completed Comprehensive Metabolic Panel Stat Lab 12/14/24 09:00 Completed Lactate (Lactic Acid) Stat Lab 12/14/24 09:00 Completed Lipase Stat Lab 12/14/24 09:00 Completed Magnesium Stat Lab 12/14/24 09:00 Completed Partial Thromboplastin Time Stat Lab 12/14/24 09:00 Completed Procalcitonin Stat Lab 12/14/24 09:00 Completed Prothrombin Time with INR Stat Lab 12/14/24 09:00 Completed Troponin I Stat Lab 12/14/24 09:00 Completed Type and Screen Stat Lab 12/14/24 09:00 Completed UA, C/S IF [Urinalysis, C/S if Indicated] Stat Lab 12/14/24 08:34 Ordered Labetalol IV [Trandate IV] Med 12/14/24 08:30 Discontinued 20 mg IVP X1 ONE Morphine Inj Med 12/14/24 08:34 Discontinued 5 mg IVP X1 ONE Ondansetron Inj [Zofran Inj] Med 12/14/24 08:25 Discontinued 4 mg IV X1 ONE Ondansetron Inj [Zofran Inj] Med 12/14/24 11:08 Discontinued 4 mg IV X1 ONE Pantoprazole Inj [Protonix Inj] Med 12/14/24 08:24 Discontinued 80 mg IV X1 ONE Pantoprazole/Ns 80Mg IV Premix [Protonix/NS 80mg IV Med 12/14/24 08:25 Active Premix] 80 mg in 100 ml IV X1 Oxygen Delivery NOW RT 12/14/24 09:00 Active Vital Signs Vital signs: Vital Signs Temperature 99.0 F 12/14/24 08:17 Pulse Rate 97 12/14/24 08:17 Respiratory Rate 17 12/14/24 08:17 Blood Pressure 234/124 H 12/14/24 08:17 Pulse Oximetry (%) 94 L 12/14/24 08:17 Oxygen Delivery Method Room Air 12/14/24 08:17 Procedures -ED EKG Interpretation #1: Date of EK12/14/24 Time of EK:53 Rate: 90 Interpretation: Interpreted by me Additional EKG comment: sinus rhythm, rate 90, no acute ischemic changes GI Bleed MDM Narrative MDM Narrative:: I, Valerie Cespedes am scribing for and in the presence of Dr. Steinberg. Patient data External records reviewed:: [facility] previous records (Reviewed last ED visit dated 12/04/24 discharged with the following: Encounter for post surgical wound check) and EMS form Clinical information provided by:: patient and EMS Social determinants that could affect healthcare access:: housing ([facility]) Patient has the following chronic illnesses:: CVA and hypertension How is presenting disease/condition affected by chronic disease/condition?: exacerbated by Evaluation data The following diagnostics were reviewed and interpreted by me:: lab results, radiology exam(s) and EKG tracing(s) (EKG#1: EKG at 08:53 hours. Interpreted by me: sinus rhythm, rate 90, no acute ischemic changes) Lab and/or radiology exams considered but not ordered:: none Interpretation Summary: Procedure(s): XR chest 1V portable Accession Number(s): [id number] cc: Areli Diana MD; Jimbo Mtz MD; Lashon Steinberg MD~ Examination: AP chest single view Technique one AP portable upright chest single view Exam date and time: 2024 at 0739 hrs. Comparison 04/30/2024 Indications: Hematemesis chest pain today Findings: Mild CHF Moderate cardiac contour. Prominent vascular congestion with early basilar edema Right internal jugular dialysis catheter tip SVC Impression: Mild heart failure Dictated By: Jimbo Mtz MD Procedure(s): CT abdomen pelvis wo con Accession Number(s): [id number] cc: Rohith Rodríguez MD; Areli Diana MD; Lashon Steinberg MD~ EXAMINATION: CT abdomen pelvis wo [facility] ORDERING PROVIDER: Lashon Steinberg MD HISTORY: vomiting TECHNIQUE: Without intravenous or oral contrast, CT was used in the volumetric, helical imaging acquisition of the abdomen and pelvis with 2-D and 3-D reformats generated on a separate workstation and submitted for interpretation. Institutional dose reducing protocols were utilized. Evaluation of hollow viscus and solid viscera is limited secondary to lack of intravenous and oral contrast. RADIATION DOSE: DLP 841 mGy-cm COMPARISON: 09/30/2024, CT CAP. 04/18/2024, CT renal biopsy. FINDINGS: LIVER: Unremarkable. BILIARY: Unremarkable. PANCREAS: Moderate fatty atrophy. SPLEEN: Unremarkable. ADRENAL GLANDS: Unremarkable. KIDNEYS: Again seen is severe bilateral perinephric fat stranding, unchanged from prior. Hydronephrosis. No obstructive urolithiasis. Bilateral cortical renal atrophy. URETERS: Unremarkable. BLADDER: Unremarkable. CT provides limited evaluation of the urinary bladder. HOLLOW VISCUS: Inspissated stool in the colon. Appendix is nondilated. No CT findings for bowel obstruction. VASCULATURE: Negative evaluation without contrast. Vascular catheter tip at the superior cavoatrial junction. Small pericardial effusion again seen. Mild aortoiliac calcific atherosclerotic disease. Moderate calcifications of the proximal femoral arteries. Moderate calcifications of the posterior division hypogastric arteries, as well as inferior epigastric arteries. PELVIS: No free fluid. LYMPH NODES: Limited evaluation without contrast. Grossly unremarkable. LUNG BASES: Mild bibasilar reticular nodular opacities, atelectasis, and scarring. Increased interstitial markings. BONES: Moderate left sacral bone island. Moderate degenerative disc disease L5-S1. ABDOMINAL WALL: Gynecomastia. IMPRESSION: 1. Unchanged severe bilateral perinephric fat stranding. Given chronicity, favor this to be from chronic renal disease, however superimposed infectious process cannot be excluded. 2. Similar-appearing small pericardial effusion. 3. Findings suggestive of mild positive fluid balance. 4. Findings which can be seen with constipation. Dictated By: Rohith Rodríguez MD Medications / Prescriptions Medications or Prescriptions considered but not ordered:: none Medication administrations:: Medication Administration History Carvedilol (Carvedilol 3.125 Mg Tablet) 3.125 mg PO BID KIMBERLEE Stop: 01/13/25 13:14 Last Admin: 12/14/24 13:41 Dose: Not Given Documented By: LUIS Non-Admin Reason: NPO Hydralazine HCl (Hydralazine Hcl 25 Mg Tablet) 25 mg PO QID KIMBERLEE Stop: 01/13/25 13:14 Last Admin: 12/14/24 13:40 Dose: Not Given Documented By: LUIS Non-Admin Reason: NPO Hydralazine HCl (Hydralazine Inj 20 Mg/Ml Vial) 10 mg IV Q8H PRN PRN Reason: SBP>160 Stop: 01/13/25 13:29 Last Admin: 12/14/24 13:24 Dose: 10 mg Documented By: LUIS Pantoprazole Sodium (Protonix/Ns 80mg Iv Premix) 80 mg in 100 mls @ 10 mls/hr IV X1 ONE Stop: 12/14/24 18:24 Last Admin: 12/14/24 08:49 Dose: 10 mls/hr Documented By: CASH Octreotide Acetate 1,000 mcg/ (Sodium Chloride) 102 mls @ 5.1 mls/hr IV .Q20H KIMBERLEE; Protocol Stop: 12/19/24 12:02 Octreotide Acetate 1,000 mcg/ (Sodium Chloride) 102 mls @ 5.1 mls/hr IV .Q20H ONE; Protocol Stop: 12/15/24 08:14 Last Admin: 12/14/24 12:43 Dose: 50 mcg/hr, 5.1 mls/hr Documented By: LUIS Ondansetron HCl (Ondansetron Inj 2 Mg/Ml Inj 2 Ml) 4 mg IV Q6H PRN; Protocol PRN Reason: NAUSEA OR VOMITING Stop: 01/13/25 11:09 Discontinued Medications Carvedilol (Carvedilol 12.5 Mg Tablet) 25 mg PO BID [facility] Stop: 01/13/25 13:14 Hydralazine HCl (Hydralazine Hcl 25 Mg Tablet) 100 mg PO QID KIMBERLEE Stop: 01/13/25 13:14 Hydromorphone HCl (Hydromorphone Inj 2 Mg/Ml Vial) 0.25 mg IVP X1 ONE Stop: 12/14/24 13:52 Labetalol HCl (Labetalol Inj 5 Mg/Ml Vial 20 Ml) 20 mg IVP X1 ONE Stop: 12/14/24 08:31 Last Admin: 12/14/24 08:49 Dose: 20 mg Documented By: CASH Morphine Sulfate (Morphine Sulf Inj 10 Mg/Ml Vial) 5 mg IVP X1 ONE Stop: 12/14/24 08:35 Last Admin: 12/14/24 09:21 Dose: 5 mg Documented By: CASH Octreotide Acetate (Octreotide Acet Inj 50 Mcg/Ml Vial) 50 mcg IV X1 ONE Stop: 12/14/24 12:03 Last Admin: 12/14/24 12:40 Dose: 50 mcg Documented By: LUIS Ondansetron HCl (Ondansetron Inj 2 Mg/Ml Inj 2 Ml) 4 mg IV X1 ONE; Protocol Stop: 12/14/24 08:26 Last Admin: 12/14/24 08:42 Dose: 4 mg Documented By: CASH Ondansetron HCl (Ondansetron Inj 2 Mg/Ml Inj 2 Ml) 4 mg IV X1 ONE Stop: 12/14/24 11:09 Last Admin: 12/14/24 11:12 Dose: 4 mg Documented By: LUIS Pantoprazole Sodium (Pantoprazole Inj 40 Mg Vial) 80 mg IV X1 ONE Stop: 12/14/24 08:25 Last Admin: 12/14/24 08:48 Dose: 80 mg Documented By: CASH see above Consultations Consultation(s) initiated? (list below): Yes Consultation #1 (Physician, Specialty, Details): Discussed test HPI, PMHx, lab, radiology results and/or management with resident Nia Saavedra working with hospitalist. Will admit for further evaluation and management. Accepts patient for admission. Time: 11:10 Diagnosis GI bleed differential diagnosis: esophageal varices, Upper gastrointestinal hemorrhage, Lower gastrointestinal hemorrhage and hematochezia Most likely diagnosis given after review of the tests above:: Upper GI bleed Admission Indicated Admission indicated?: indicated Admission Request Was there a request for admission?: Yes Admission Attestation Admission request attestation: Discussed case with [] from Hospitalist service regarding admission. Discussed patients ED course, exam findings, labs, and radiology results. The Hospitalist [agrees,declines] to accept the patient for admission. Disposition Plan Disposition Plan: Admit Discharge Plan Plan Patient Disposition: Admit Acute Care w/in Hospital Problem List Clinical Impression: Upper gastrointestinal bleed
[2024-12-14] MEDS: ONDANSETRON INJ 2 MG/ML INJ 2 ML 4 MG IV ×3 (08:42→19:35)
[2024-12-14] MEDS: PANTOPRAZOLE INJ 40 MG VIAL 80 MG IV (08:48)
[2024-12-14] MEDS: PANTOPRAZOLE/NS 80MG IV PREMIX 80 MG/100 ML BAG 10 MG IV (08:49)
[2024-12-14] MEDS: LABETALOL INJ 5 MG/ML VIAL 20 ML 20 MG IVP ×2 (08:49→15:14)
--- NOTE | 2024-12-14 09:00 | PC.NURSE ---
02 sats dropped to 85 % while patient sleeping, applied 02 via NC at 2l/min.
[2024-12-14 09:10] LABS: Lactate (Lactic Acid) 1.8 mMol/L (0.4-2.0)
[2024-12-14 09:13] LABS: Basophils % (Auto) 0 % (0-2.5); Eosinophils % (Auto) 0 % (0-10); Hemoglobin 11.6 g/dL (13.5-16.0); Immature Granulocytes % (Auto) 0 % (0-0); Immature Granulocytes Auto 0.03 Thou/mm3 (0.00-0.00); Lymphocytes % (Auto) 10 % (10-50); Mean Corpuscular HGB Conc 32.2 g/dl (31.0-37.0); Mean Corpuscular Volume 90 fL (80-100); Monocytes # (Auto) 0.4 Thou/mm3 (0.0-0.8); Monocytes % (Auto) 4 % (0-12); Neutrophils # (Auto) 8.7 Thou/mm3 (1.8-7.7); Neutrophils % (Auto) 85 % (37-80); Nucleated Red Blood Cell % 0 /100 WBC (0); Platelet Count 314 Thou/mm3 (140-440); RDW Standard Deviation 48.5 fL (35.1-43.9); White Blood Count 10.1 Thou/mm3 (3.8-10.6)
[2024-12-14] MEDS: MORPHINE SULF INJ 10 MG/ML VIAL 5 MG IVP (09:21)
[2024-12-14 09:35] LABS: Prothrombin Time 11.4 Seconds (9.0-12.2)
[2024-12-14 09:39] LABS: B-Type Natriuretic Peptide 831 pg/mL (0-100)
[2024-12-14 09:50] LABS: Alanine Aminotransferase 20 U/L (10-49); Albumin/Globulin Ratio 1.3 (1.2-2.2); Alkaline Phosphatase 103 U/L (46-116); Anion Gap 15 (7-16); Aspartate Amino Transferase 16 U/L (0-34); BUN/Creatinine Ratio 7 Ratio (12-20); Bilirubin,Total 0.2 mg/dL (0.3-1.2); Blood Urea Nitrogen 51 mg/dL (9-23); Calcium 9.3 mg/dL (8.3-10.6); Calcium (Corrected) 9.3 mg/dL (8.5-10.1); Carbon Dioxide 28.1 mMol/L (20.0-31.0); Chloride 98 mMol/L (98-107); Creatinine (Component) 7.5 mg/dL (0.6-1.3); Estimated Creatinine Clearance 14.1 mL/min (>60); Glucose 193 mg/dL (74-106); Lipase 27 U/L (12-53); Magnesium 2.2 mg/dL (1.6-2.6); Osmolality,Calculated 299 (275-295); Potassium 4.5 mMol/L (3.4-5.1); Procalcitonin 0.13 ng/ml (0.0-0.49); Sodium 141 mMol/L (136-145); eGFR 8 See Note
[2024-12-14 09:52] LABS: Troponin I 0.088 ng/mL (0.0-0.045)
--- NOTE | 2024-12-14 10:11 | XR_ITS ---
EXAMINATION: CT abdomen pelvis wo con ORDERING PROVIDER: Lashon Steinberg MD HISTORY: vomiting TECHNIQUE: Without intravenous or oral contrast, CT was used in the volumetric, helical imaging acquisition of the abdomen and pelvis with 2-D and 3-D reformats generated on a separate workstation and submitted for interpretation. Institutional dose reducing protocols were utilized. Evaluation of hollow viscus and solid viscera is limited secondary to lack of intravenous and oral contrast. RADIATION DOSE: DLP 841 mGy-cm COMPARISON: 09/30/2024, CT CAP. 04/18/2024, CT renal biopsy. FINDINGS: LIVER: Unremarkable. BILIARY: Unremarkable. PANCREAS: Moderate fatty atrophy. SPLEEN: Unremarkable. ADRENAL GLANDS: Unremarkable. KIDNEYS: Again seen is severe bilateral perinephric fat stranding, unchanged from prior. Hydronephrosis. No obstructive urolithiasis. Bilateral cortical renal atrophy. URETERS: Unremarkable. BLADDER: Unremarkable. CT provides limited evaluation of the urinary bladder. HOLLOW VISCUS: Inspissated stool in the colon. Appendix is nondilated. No CT findings for bowel obstruction. VASCULATURE: Negative evaluation without contrast. Vascular catheter tip at the superior cavoatrial junction. Small pericardial effusion again seen. Mild aortoiliac calcific atherosclerotic disease. Moderate calcifications of the proximal femoral arteries. Moderate calcifications of the posterior division hypogastric arteries, as well as inferior epigastric arteries. PELVIS: No free fluid. LYMPH NODES: Limited evaluation without contrast. Grossly unremarkable. LUNG BASES: Mild bibasilar reticular nodular opacities, atelectasis, and scarring. Increased interstitial markings. BONES: Moderate left sacral bone island. Moderate degenerative disc disease L5-S1. ABDOMINAL WALL: Gynecomastia. IMPRESSION: 1. Unchanged severe bilateral perinephric fat stranding. Given chronicity, favor this to be from chronic renal disease, however superimposed infectious process cannot be excluded. 2. Similar-appearing small pericardial effusion. 3. Findings suggestive of mild positive fluid balance. 4. Findings which can be seen with constipation.
--- NOTE | 2024-12-14 10:34 | PC.NURSE ---
Patient states he does produce a little bit of urine, urinal provided and informed patient of need of urine sample.
[2024-12-14] MEDS: OCTREOTIDE ACET INJ 50 mCg/ML VIAL IV (12:40)
[2024-12-14] MEDS: OCTREOTIDE ACET INJ 1,000 MCG in SODIUM CHLORIDE 0.9% 100 ML 5.1 MCG IV (12:43)
--- NOTE | 2024-12-14 13:15 | PC.NURSE ---
DR. CANTU NOTIFIED OF NPO ORDER, NG PLACEMENT, AND ORDERS FOR PO CARVEDILOL AND HYDRALAZINE. PER DR. CANTU HOLD PO MEDICATION AT THIS TIME AND WILL ORDER PRN IV BLOOD PRESSURE MEDICATION. DR. CANTU WILL ALSO ORDER X-RAY FOR NG PLACEMENT. CONFIRMATION.
--- NOTE | 2024-12-14 13:17 | XR_ITS ---
EXAMINATION: XR chest 1V post procedure ORDERING PROVIDER: Malathi Lopes MD HISTORY: Post NG placement TECHNIQUE: Single portable AP radiograph of the chest. COMPARISON: 12/14/2024, 7:39 AM. FINDINGS: Lines and Tubes: Enteric tube tip projecting below the left hemidiaphragm. Right chest tunneled vascular catheter with tip projecting over the mid superior vena cava. Overlying monitoring leads. Lungs: Mild increased interstitial markings. No consolidation. Pleura: No pneumothorax or pleural effusion. Cardiomediastinal Silhouette: Mild cardiomegaly. Uncoiled aorta. Soft Tissues/Bones: Normal. IMPRESSION: 1. Interval placement of enteric tube with tip projecting below the left hemidiaphragm. 2. Positive fluid balance.
[2024-12-14] MEDS: hydrALAZINE INJ 20 MG/ML VIAL 10 MG IV (13:24)
--- NOTE | 2024-12-14 13:38 | PC.NURSE ---
DR. JOHNSON NOTIFIED THAT PATIENT WANTS NG TUBE REMOVED AND REQUESTING PAIN MEDICATION, DR. JOHNSON STATED THAT HE WOULD ORDER PAIN MEDICATION AND WILL COME TALK TO PATIENT REGARDING NG TUBE.
[2024-12-14] MEDS: HYDROmorphone INJ 2 MG/ML VIAL 0.25 MG IVP (13:58)
--- NOTE | 2024-12-14 14:16 | PC.NURSE ---
PATEINT TAKEN TO DIALYSIS, DIALYSIS NURSE INFORMED OF NEED OF Q1 HOUR BLOOD SUGARS.
--- NOTE | 2024-12-14 15:16 | PC.NURSE ---
ROOMING HOUSE KEEPER here to give pt labetolol IVP.
--- NOTE | 2024-12-14 15:52 | PD.RESCONSUL ---
HPI Data of Consult Consult date: 12/14/24 Requesting Physician: Malathi Lopes MD Admitting Provider: Malathi Lopes MD Attending Provider: Malathi Lopes MD Primary Care Provider: Areli Diana MD Consult Narrative Reason for consult: ESRD for hemodialysis History of present illness: Mr. Go is a 49-year-old male with significant past medical history of hypertension, diabetes mellitus, CVA with residual left-sided deficits, ESRD on HD [M/W/F] presented to the hospital with chief complaint of hematemesis since 1day. Patient was apparently normal till last night, later developed multiple episodes of nausea with vomiting of blood. Patient endorsed that he is having diffuse abdominal pain along with vomitings. Denies heartburn, NSAIDs, alcohol intake, similar history, fever, shortness of breath, abdominal distention, pedal edema ED Course: -Initial vitals were blood pressure 234/124 mmHg, pulse rate 97 bpm, respiratory rate 17/min, SpO2 94% with room air -Labs significant for WBC 10.1, Hb 11.6, platelets 314, INR 1, sodium 141, potassium 4.5, chloride 98, bicarb 28.1, BUN 51, creatinine 7.5, glucose 193, procalcitonin 0.13. -CT abdomen/pelvis showed changes consistent with chronic kidney disease. Chest x-ray did not show any infiltrates. -In the ED, patient was given octreotide, pantoprazole and labetalol -Patient was admitted for upper GI bleed Patient was complaining of significant nausea-NG tube was placed. Nephrology was consulted as patient is having ESRD and for pending hemodialysis session as of today cc:: cc: Malathi Lopes MD Review of Systems Review of Systems Narrative Review of Systems: Constitutional: No Weight Change, No Fever, No Chills, No Night Sweats, No Fatigue, No Malaise ENT/Mouth: No Hearing Changes, No Ear Pain, No Nasal Congestion, No Sinus Pain, No Hoarseness, No sore throat, No Rhinorrhea, No Swallowing Difficulty Eyes: No Eye Pain, No Swelling, No Redness, No Foreign Body, No Discharge, No Vision Changes Cardiovascular: No Chest Pain, No SOB, No PND, No Dyspnea on Exertion, No Orthopnea, No Edema, No Palpitations Respiratory: No Cough, No Sputum, No Wheezing, No Dyspnea Gastrointestinal: Nausea, Vomiting, No Diarrhea, No Constipation, No Pain, No Heartburn, No Anorexia, No Dysphagia, No Hematochezia, No Melena, No Flatulence, No Jaundice Genitourinary: No Dysuria, No Urinary Frequency, No Hematuria, No Urinary Incontinence, No Urgency, No Flank Pain, No Urinary Flow Changes, No Hesitancy Musculoskeletal: No Arthralgias, No Myalgias, No Joint Swelling, No Joint Stiffness, No Back Pain, No Neck Pain, No Injury History Skin: No Skin Lesions, No Pruritis Neuro: No Weakness, No Numbness, No Paresthesias, No Loss of Consciousness, No Syncope, No Dizziness, No Headache, No Coordination Changes, No Recent Falls Past Medical History Past Medical History NEUROLOGIC: Positive Cerebrovascular Accident CARDIAC: Positive Peripheral Vascular Disease, Hypercholesterolemia and Hypertension GASTROINTESTINAL: Positive Pancreatitis MUSCULOSKELETAL: Positive Osteomyelitis ENDOCRINE: Positive Diabetes Mellitus Type 2 HEMATOLOGIC: Positive Anemia Surgical History SURGICAL: Positive Eye Surgery and Amputation Social History SMOKING STATUS: Former smoker (15 pack/year quit 4 years ago.) SECOND HAND EXPOSURE: No SUBSTANCE USE: former substance user and methamphetamine (Former, last used 07/2023 months ago.) Exam Vital Signs Temp Pulse Resp BP Pulse Ox O2 Del Method O2 Flow Rate 98.6 F 84 18 163/94 H 100 Nasal Cannula 2 12/14/24 14:30 12/14/24 15:45 12/14/24 14:30 12/14/24 15:45 12/14/24 14:30 12/14/24 11:44 12/14/24 14:30 Narrative Exam General: Awake. Positive NG tube HEENT: Normocephalic, atraumatic, mucous membranes moist. Heart: Regular rate and rhythm, no murmurs. Lungs: Clear to auscultation with no wheezing or crackles. Abdomen: Soft, nondistended, diffuse tenderness through out the abdomen, positive bowel sounds. ?No guarding or rebound tenderness. Neurologic: Alert and oriented x3, no gross neurological deficit, and patient able to move all 4 extremities. Extremities: No edema. Skin: No rash or ecchymoses. Results Labs 12/14/24 09:00 12/14/24 09:00 Labs: Short CBC 12/14/24 Range/Units 09:00 WBC 10.1 (3.8-10.6) Thou/mm3 Hgb 11.6 L (13.5-16.0) g/dL Hct 36.0 L (41.0-53.0) % Plt Count 314 D (140-440) Thou/mm3 BMP 12/14/24 09:00 Sodium 141 Potassium 4.5 Chloride 98 Carbon Dioxide 28.1 BUN 51 H Creatinine 7.5 H* Glucose 193 H Calcium 9.3 Cardiac Enzymes 12/14/24 Range/Units 09:00 Troponin I 0.088 H* (0.0-0.045) ng/mL Liver Function 12/14/24 Range/Units 09:00 Total Bilirubin 0.2 L (0.3-1.2) mg/dL AST 16 (0-34) U/L ALT 20 (10-49) U/L Alkaline Phosphatase 103 (46-116) U/L Albumin 4.0 (3.5-5.0) gm/dL Quality Measures Quality Measures none Medications Home Medications and Allergies Home Medications ?Medication ?Instructions ?Recorded ?Confirmed ?Type furosemide 40 mg tablet 40 mg PO QDAY 04/18/24 12/04/24 History glipizide 10 mg tablet 10 mg PO BID 04/18/24 12/04/24 History rosuvastatin 20 mg tablet 20 mg PO HS 09/12/24 12/04/24 History vitamin B complex-vitamin C-folic 1 tab PO QDAY 09/12/24 12/04/24 History acid 0.8 mg tablet (Kaley-Radha) apixaban 5 mg tablet (Eliquis) 5 mg PO BID 12/04/24 12/04/24 History carvedilol 25 mg tablet (Coreg) 25 mg PO BID 12/04/24 12/04/24 History hydralazine 100 mg tablet 100 mg PO QID 12/04/24 12/04/24 History hydroxyzine HCl 25 mg tablet 25 mg PO BID 12/04/24 12/04/24 History insulin glargine 100 unit/mL (3 15 unit subcut QDAY 12/04/24 12/04/24 History mL) subcutaneous pen linagliptin 5 mg tablet (Tradjenta) 5 mg PO QDAY 12/04/24 12/04/24 History meclizine 25 mg tablet 25 mg PO Q8HR PRN dizziness 12/04/24 12/04/24 History nicardipine 20 mg capsule 20 mg PO BID 12/04/24 12/04/24 History ondansetron HCl 4 mg tablet 4 mg PO Q4H PRN nausea and vomiting 12/04/24 12/04/24 History tramadol 50 mg tablet 50 mg PO Q6H PRN pain 12/04/24 12/04/24 History Allergies Allergy/AdvReac Type Severity Reaction Status Date / Time No Known Allergies Allergy Verified 09/30/24 10:46 Visit Medications Carvedilol (Carvedilol 3.125 Mg Tablet) 3.125 mg PO BID [facility] Stop: 01/13/25 13:14 Last Admin: 12/14/24 13:41 Dose: Not Given Heparin Sodium (Porcine) (Heparin Sod Inj 1000 Unit/Ml Vial 10 Ml) 3,300 unit INDWELLCAT PRN PRN PRN Reason: DIALYSIS Stop: 12/28/24 15:19 Hydralazine HCl (Hydralazine Hcl 25 Mg Tablet) 25 mg PO QID [facility] Stop: 01/13/25 13:14 Last Admin: 12/14/24 13:40 Dose: Not Given Hydralazine HCl (Hydralazine Inj 20 Mg/Ml Vial) 10 mg IV Q8H PRN PRN Reason: SBP>160 Stop: 01/13/25 13:29 Last Admin: 12/14/24 13:24 Dose: 10 mg Pantoprazole Sodium (Protonix/Ns 80mg Iv Premix) 80 mg in 100 mls @ 10 mls/hr IV X1 ONE Stop: 12/14/24 18:24 Last Admin: 12/14/24 08:49 Dose: 10 mls/hr Octreotide Acetate 1,000 mcg/ (Sodium Chloride) 102 mls @ 5.1 mls/hr IV .Q20H [facility]; Protocol Stop: 12/19/24 12:02 Octreotide Acetate 1,000 mcg/ (Sodium Chloride) 102 mls @ 5.1 mls/hr IV .Q20H ONE; Protocol Stop: 12/15/24 08:14 Last Admin: 12/14/24 12:43 Dose: 50 mcg/hr, 5.1 mls/hr Ondansetron HCl (Ondansetron Inj 2 Mg/Ml Inj 2 Ml) 4 mg IV Q6H PRN; Protocol PRN Reason: NAUSEA OR VOMITING Stop: 01/13/25 11:09 Discontinued Medications Carvedilol (Carvedilol 12.5 Mg Tablet) 25 mg PO BID [facility] Stop: 01/13/25 13:14 Hydralazine HCl (Hydralazine Hcl 25 Mg Tablet) 100 mg PO QID [facility] Stop: 01/13/25 13:14 Hydromorphone HCl (Hydromorphone Inj 2 Mg/Ml Vial) 0.25 mg IVP X1 ONE Stop: 12/14/24 13:52 Last Admin: 12/14/24 13:58 Dose: 0.25 mg Labetalol HCl (Labetalol Inj 5 Mg/Ml Vial 20 Ml) 20 mg IVP X1 ONE Stop: 12/14/24 08:31 Last Admin: 12/14/24 08:49 Dose: 20 mg Labetalol HCl (Labetalol Inj 5 Mg/Ml Vial 20 Ml) 20 mg IVP X1 ONE Stop: 12/14/24 14:18 Last Admin: 12/14/24 15:14 Dose: 20 mg Morphine Sulfate (Morphine Sulf Inj 10 Mg/Ml Vial) 5 mg IVP X1 ONE Stop: 12/14/24 08:35 Last Admin: 12/14/24 09:21 Dose: 5 mg Octreotide Acetate (Octreotide Acet Inj 50 Mcg/Ml Vial) 50 mcg IV X1 ONE Stop: 12/14/24 12:03 Last Admin: 12/14/24 12:40 Dose: 50 mcg Ondansetron HCl (Ondansetron Inj 2 Mg/Ml Inj 2 Ml) 4 mg IV X1 ONE; Protocol Stop: 12/14/24 08:26 Last Admin: 12/14/24 08:42 Dose: 4 mg Ondansetron HCl (Ondansetron Inj 2 Mg/Ml Inj 2 Ml) 4 mg IV X1 ONE Stop: 12/14/24 11:09 Last Admin: 12/14/24 11:12 Dose: 4 mg Pantoprazole Sodium (Pantoprazole Inj 40 Mg Vial) 80 mg IV X1 ONE Stop: 12/14/24 08:25 Last Admin: 12/14/24 08:48 Dose: 80 mg Assessment & Plan Plan [id number] male with significant past medical history of hypertension, diabetes mellitus, CVA with residual left-sided deficits, ESRD on HD [M/W/F] presented to the hospital with chief complaint of hematemesis since 1 day. # ESRD on HD [M/W/F] Likely due to diabetes mellitus, hypertension -Patient was started on dialysis since 2 months -Per patient, patient is able to produce only minimal amount of urine -Last dialysis session was on 12/12/2024 -Patient was admitted for upper GI bleed Plan -Will order hemodialysis session today -for 3.4 hours, 2 to 3 L of ultrafiltrate -Will continue dialysis as per his routine schedule during the hospital visit -Avoid nephrotoxic medication and renally dose medications # Hypertensive urgency, resolved -Blood pressure at the time of is 234/124 mmHg -Patient missed dialysis session that should be done in the morning -Patient received 2 doses of labetalol, 1 dose of hydralazine 10 Mg in the ED Plan -Blood pressures are controlled 3 hours later and during the dialysis session, blood pressure is 100/86 mmHg -Recommended to monitor blood pressure and resume his home medications #Upper GI bleed #NSTEMI type I (less likely) versus type II #Diabetes -Rest of the medical conditions to be treated as per primary team Thank you for allowing to involved in the care of the patient Patient plan of care was discussed with the attending physician, Dr.Vemuri Nitin Dixon, PGY1 Attending Provider Attestation/Addendum Patient seen and examined with resident physician Dr. Taveras. Note reviewed, agree with findings and recommendations. Patient with end-stage renal disease secondary to hypertensive/diabetic nephropathy. Under the care of Dr. Fuchs-I am covering. Patient currently seen on dialysis. Tolerating dialysis without any problems. Hemodialysis for 3.5 hours, 2K, ultrafiltration 2-3 L, Epogen 6000, no heparin ordered. Plan of care discussed with the dialysis nurse. Please see dialysis flowsheet for further details. Thank you Malathi for allowing me to participate in the care of Mr. Go
--- NOTE | 2024-12-14 15:54 | ESHP_ITS ---
<Statement entered by Chasidy Chinchilla MD - 12/15/24 07:50> I discussed with and supervised the sourcing intern physician who took care of this patient. I personally saw and examined the patient and discussed the assessment and plan with the entire medicine team, including my attending Dr. Lopes, I agree with most of the assessment and plan as documented below Chasidy Chinchilla M.D. PGY-2 Disclaimer: Despite multiple revisions, due to the dictation software being used, the document bellow may not be free of grammatical errors including phonetic/typographic errors. However, this does not deter from our commitment to providing health care in the patient's best interest in mind. Documentation for date of: 12/14/24 HPI History of Present Illness Chief complaint: Hematemesis History of present illness: 49 y/o M with PMHx significant for CVA with residual left-sided deficits, diabetes, hypertension, ESRD on dialysis (M/W/F) presents to facility with chief complaint of coffee-ground emesis x 1 day. Patient was in his usual state of health until late last night when he developed nausea and vomiting with coffee- ground emesis. Patient has had multiple rounds of emesis, with associated abdominal pain. Patient is felt fatigued during this time. Patient has no previous history of emesis or ulcers. Patient [place] fever, chills, shortness of breath, lightheadedness, dizziness, melena, hematochezia. ED COURSE: Labs significant for: Hemoglobin 11.6, BUN 51, creatinine 7.5, EGFR 8, lactic acid 1.8, troponin 0.088, BNP 831, Pro-Hector 0.13. Imaging significant for: Chest x-ray unremarkable, CT abdomen/pelvis unremarkable. Patient found to have hypertensive urgency without signs of endorgan damage. Patient given labetalol IV x 1, start on Protonix drip. PMH: CVA, diabetes, hypertension, ESRD PSH: Bilateral cataract surgery. SH: Patient endorses history of meth use, alcohol use, tobacco use, all stopped 2 years ago. FH: Mother has diabetes. Allergies:?NKDA Medications: Eliquis, Coreg, Lasix, glipizide, hydralazine, hydroxyzine, meclizine, nicardipine, rosuvastatin, insulin Review of Systems Review of Systems Systems Reviewed: All systems reviewed, normal except as documented Past Medical History Past Medical History Comments PMH COMMENT: PMH: CVA, diabetes, hypertension, ESRD PSH: Bilateral cataract surgery. SH: Patient endorses history of meth use, alcohol use, tobacco use, all stopped 2 years ago. FH: Mother has diabetes. Allergies:?NKDA Medications: Eliquis, Coreg, Lasix, glipizide, hydralazine, hydroxyzine, meclizine, nicardipine, rosuvastatin, insulin Exam Vital Signs Temp Pulse Resp BP Pulse Ox O2 Del Method O2 Flow Rate 98.6 F 84 18 163/94 H 100 Nasal Cannula 2 12/14/24 14:30 12/14/24 15:45 12/14/24 14:30 12/14/24 15:45 12/14/24 14:30 12/14/24 11:44 12/14/24 14:30 Narrative Exam PE: Gen: Well-developed and well-nourished. Obese. HEENT: NCAT, PERRLA, EOMI, MMM, anicteric conjunctivae. CVS: normal S1 and S2. RRR. No M/R/G. Chest catheter for dialysis. Resp: CTA B/L. No rhonchi, rales, crackles or wheezing. Abd: soft, non-tender, non-distended. MSK: Good ROM in RUE & BLE. No edema or rash. Left upper extremity proximal muscle weakness, unable to fully open hand. Right upper extremity fistula. Neuro: CN II-XII grossly intact. Strength 5/5 in RUE & BLE. Alert and oriented x3. Psych: appropriate mood and affect. Results: Labs 12/14/24 09:00 12/14/24 09:00 Labs: Short CBC 12/14/24 Range/Units 09:00 WBC 10.1 (3.8-10.6) Thou/mm3 Hgb 11.6 L (13.5-16.0) g/dL Hct 36.0 L (41.0-53.0) % Plt Count 314 D (140-440) Thou/mm3 BMP 12/14/24 09:00 Sodium 141 Potassium 4.5 Chloride 98 Carbon Dioxide 28.1 BUN 51 H Creatinine 7.5 H* Glucose 193 H Calcium 9.3 Cardiac Enzymes 12/14/24 Range/Units 09:00 Troponin I 0.088 H* (0.0-0.045) ng/mL Liver Function 12/14/24 Range/Units 09:00 Total Bilirubin 0.2 L (0.3-1.2) mg/dL AST 16 (0-34) U/L ALT 20 (10-49) U/L Alkaline Phosphatase 103 (46-116) U/L Albumin 4.0 (3.5-5.0) gm/dL Quality Measures Quality Measures VTE prophylaxis Medications Home Medications and Allergies Home Medications ?Medication ?Instructions ?Recorded ?Confirmed ?Type furosemide 40 mg tablet 40 mg PO QDAY 04/18/2412/04 History glipizide 10 mg tablet 10 mg PO BID 04/18/24 History rosuvastatin 20 mg tablet 20 mg PO HS 09/12/24 5 History vitamin B complex-vitamin C-folic 1 tab PO QDAY 12/04/24 History acid 0.8 mg tablet (Kaley-Radha) apixaban 5 mg tablet (Eliquis) 5 mg PO BID 12/04/24 History carvedilol 25 mg tablet (Coreg) 25 mg PO BID 12/04/24 12/04/24 History hydralazine 100 mg tablet 100 mg PO QID 12/04/2412/04 History hydroxyzine HCl 25 mg tablet 25 mg PO BID 12/04/2411/29 History insulin glargine 100 unit/mL (3 15 unit subcut QDAY 12/04/24 History mL) subcutaneous pen linagliptin 5 mg tablet (Tradjenta) 5 mg PO QDAY 12/0412/04/24 History meclizine 25 mg tablet 25 mg PO Q8HR PRN dizziness 12/04/24 12/04/24 History nicardipine 20 mg capsule 20 mg PO BID 12/04/24 History ondansetron HCl 4 mg tablet 4 mg PO Q4H PRN nausea and vomiting 12/04/24 12/04/24 History tramadol 50 mg tablet 50 mg PO Q6H PRN pain 12/04/24 History Allergies Allergy/AdvReac Type Severity Reaction Status Date / Time No Known Allergies Allergy Verified 09/30/24 10:46 Visit Medications Carvedilol (Carvedilol 3.125 Mg Tablet) 3.125 mg PO BID [facility] Stop: 01/13/25 13:14 Last Admin: 12/14/24 13:41 Dose: Not Given Heparin Sodium (Porcine) (Heparin Sod Inj 1000 Unit/Ml Vial 10 Ml) 3,300 unit INDWELLCAT PRN PRN PRN Reason: DIALYSIS Stop: 12/28/24 15:19 Hydralazine HCl (Hydralazine Hcl 25 Mg Tablet) 25 mg PO QID [facility] Stop: 01/13/25 13:14 Last Admin: 12/14/24 13:40 Dose: Not Given Hydralazine HCl (Hydralazine Inj 20 Mg/Ml Vial) 10 mg IV Q8H PRN PRN Reason: SBP>160 Stop: 01/13/25 13:29 Last Admin: 12/14/24 13:24 Dose: 10 mg Pantoprazole Sodium (Protonix/Ns 80mg Iv Premix) 80 mg in 100 mls @ 10 mls/hr IV X1 ONE Stop: 12/14/24 18:24 Last Admin: 12/14/24 08:49 Dose: 10 mls/hr Octreotide Acetate 1,000 mcg/ (Sodium Chloride) 102 mls @ 5.1 mls/hr IV .Q20H [facility]; Protocol Stop: 12/19/24 12:02 Octreotide Acetate 1,000 mcg/ (Sodium Chloride) 102 mls @ 5.1 mls/hr IV .Q20H ONE; Protocol Stop: 12/15/24 08:14 Last Admin: 12/14/24 12:43 Dose: 50 mcg/hr, 5.1 mls/hr Ondansetron HCl (Ondansetron Inj 2 Mg/Ml Inj 2 Ml) 4 mg IV Q6H PRN; Protocol PRN Reason: NAUSEA OR VOMITING Stop: 01/13/25 11:09 Discontinued Medications Carvedilol (Carvedilol 12.5 Mg Tablet) 25 mg PO BID [facility] Stop: 01/13/25 13:14 Hydralazine HCl (Hydralazine Hcl 25 Mg Tablet) 100 mg PO QID [facility] Stop: 01/13/25 13:14 Hydromorphone HCl (Hydromorphone Inj 2 Mg/Ml Vial) 0.25 mg IVP X1 ONE Stop: 12/14/24 13:52 Last Admin: 12/14/24 13:58 Dose: 0.25 mg Labetalol HCl (Labetalol Inj 5 Mg/Ml Vial 20 Ml) 20 mg IVP X1 ONE Stop: 12/14/24 08:31 Last Admin: 12/14/24 08:49 Dose: 20 mg Labetalol HCl (Labetalol Inj 5 Mg/Ml Vial 20 Ml) 20 mg IVP X1 ONE Stop: 12/14/24 14:18 Last Admin: 12/14/24 15:14 Dose: 20 mg Morphine Sulfate (Morphine Sulf Inj 10 Mg/Ml Vial) 5 mg IVP X1 ONE Stop: 12/14/24 08:35 Last Admin: 12/14/24 09:21 Dose: 5 mg Octreotide Acetate (Octreotide Acet Inj 50 Mcg/Ml Vial) 50 mcg IV X1 ONE Stop: 12/14/24 12:03 Last Admin: 12/14/24 12:40 Dose: 50 mcg Ondansetron HCl (Ondansetron Inj 2 Mg/Ml Inj 2 Ml) 4 mg IV X1 ONE; Protocol Stop: 12/14/24 08:26 Last Admin: 12/14/24 08:42 Dose: 4 mg Ondansetron HCl (Ondansetron Inj 2 Mg/Ml Inj 2 Ml) 4 mg IV X1 ONE Stop: 12/14/24 11:09 Last Admin: 12/14/24 11:12 Dose: 4 mg Pantoprazole Sodium (Pantoprazole Inj 40 Mg Vial) 80 mg IV X1 ONE Stop: 12/14/24 08:25 Last Admin: 12/14/24 08:48 Dose: 80 mg Assessment & Plan Plan 49 y/o M with PMHx significant for CVA with residual left-sided deficits, diabetes, hypertension, ESRD on dialysis (M/W/F) presents to facility with chief complaint of coffee-ground emesis x 1 day, admitted for upper GI bleed. #Upper GI bleed Patient presented with chief complaint of coffee-ground emesis with multiple rounds of vomiting. Associated with abdominal pain. Patient does not have melena or hematochezia. Patient has no history of hematemesis or gastric ulceration. Patient placed on Protonix drip in ED. -Protonix drip -Octreotide drip -GI consulted, appreciate recommendations -NG tube to low intermittent suction -N.p.o. -Monitor hemoglobin, transfuse if needed -Plan for EGD, follow-up #Hypertensive urgency Patient presented with significantly elevated blood pressure 234/124. Patient denies headache, visual changes, has had blood pressure is elevated in the past. Patient scheduled to receive dialysis today, likely to see improvement at that time. P.o. meds currently on hold. Labetalol IV given in ED. -Aim for slow reduction. Blood pressure, less than 25% in 24-hour period. -Hydralazine 10 mg IV every 8 hours as needed for SBP greater than 160 #NSTEMI type I (less likely) versus type II Patient has slight elevation troponin 0.088. Likely demand ischemia in the setting of hypertensive urgency and hematemesis. Patient does not complain of chest pain, EKG unremarkable. -Trend troponin #ESRD on dialysis (M/W/F) Patient has dialysis as stated. Has not missed any appointments, although is scheduled for 1 today. Nephrology has been consulted, follows with Dr. Lopez. -Dialysis as per patient's regular schedule -Renally dose med -Avoid nephrotoxins #Diabetes Patient has history of diabetes, controlled with outpatient insulin. -ISS -Lantus 10 units daily -A1c ordered, follow-up DVT prophylaxis: SC GI prophylaxis: Protonix drip Diet: N.p.o. Lines: Peripheral IV Code status: Full code Plan of care discussed with senior resident Dr. Chinchilla PGY?[address] Lopes. Jesus Glaser MD PGY?1 Attending Provider Attestation/Addendum I attest that I was physically present for the evaluation, physical examination, lab and imaging review of the patient with the residents. I discussed the case with the residents and agree with the findings and plans of care as documented above. Due to patient is a 49 years old male with past medical history of CVA with residual left-sided deficits, diabetes, hypertension, ESRD on hemodialysis who presented to the ED with complaint of coffee-ground emesis. Patient has been having multiple episodes of coffee-ground emesis for 1 day. Also complains of mild abdominal pain. He complains of constipation but denies any fever, diarrhea. Hemoglobin appears to be stable. We will admit the patient for management of upper GI bleeding. Discussed with GI, started patient on Protonix, octreotide, n.p.o., NG tube on low intermittent suction. We will monitor hemoglobin level closely, patient planned for EGD. Patient also noted to have elevated blood pressure in the ED, started on hydralazine as needed, we will start his home antihypertensives once EGD is done. Patient also noted to have elevated troponin but denies any chest pain, likely type II, we will continue to trend troponin and monitor for any symptoms. We will obtain nephrology consult for arrangement of hemodialysis. Started patient on insulin regimen for diabetes. Malathi Lopes MD
--- NOTE | 2024-12-14 17:47 | PC.NURSE ---
BP dropped, UF turned off.
[2024-12-14 18:05] LABS: Troponin I 0.108 ng/mL (0.0-0.045)
[2024-12-14] MEDS: HEPARIN SOD INJ 1000 UNIT/ML VIAL 10 ML 3300 UNIT INDWELLCAT (18:22)
--- NOTE | 2024-12-14 20:22 | PD.IMCONS ---
HPI Data of Consult Requesting Physician: Malathi Lopes MD Primary Care Provider: Areli Diana MD Consult Narrative Reason for consult: Hematemesis History of present illness: 49 years old male brought in by the ambulance with coffee-ground hematemesis He has a history of CVA with left residual motor weakness hypertension end-stage renal disease on hemodialysis MWF CT scan of the abdomen pelvis without contrast did not show any major GI tract abnormalities cc:: cc: Malathi Lopes MD Review of Systems Review of Systems Systems Reviewed: All systems reviewed, normal except as documented Past Medical History Surgical History OTHER SURGICAL HX: As in the history of present illness Meds Home Medications and Allergies Home Medications ?Medication ?Instructions ?Recorded ?Confirmed ?Type furosemide 40 mg tablet 40 mg PO QDAY 04/18/24 12/04/24 History glipizide 10 mg tablet 10 mg PO BID 04/18/24 12/04/24 History rosuvastatin 20 mg tablet 20 mg PO HS 09/12/24 12/04/24 History vitamin B complex-vitamin C-folic 1 tab PO QDAY 09/12/24 12/04/24 History acid 0.8 mg tablet (Kaley-Radha) apixaban 5 mg tablet (Eliquis) 5 mg PO BID 12/04/24 12/04/24 History carvedilol 25 mg tablet (Coreg) 25 mg PO BID 12/04/24 12/04/24 History hydralazine 100 mg tablet 100 mg PO QID 12/04/24 12/04/24 History hydroxyzine HCl 25 mg tablet 25 mg PO BID 12/04/24 12/04/24 History insulin glargine 100 unit/mL (3 15 unit subcut QDAY 12/04/24 12/04/24 History mL) subcutaneous pen linagliptin 5 mg tablet (Tradjenta) 5 mg PO QDAY 12/04/24 12/04/24 History meclizine 25 mg tablet 25 mg PO Q8HR PRN dizziness 12/04/24 12/04/24 History nicardipine 20 mg capsule 20 mg PO BID 12/04/24 12/04/24 History ondansetron HCl 4 mg tablet 4 mg PO Q4H PRN nausea and vomiting 12/04/24 12/04/24 History tramadol 50 mg tablet 50 mg PO Q6H PRN pain 12/04/24 12/04/24 History Allergies Allergy/AdvReac Type Severity Reaction Status Date / Time No Known Allergies Allergy Verified 09/30/24 10:46 Exam Vital Signs Temp Pulse Resp BP Pulse Ox O2 Del Method O2 Flow Rate 97 F 80 18 155/90 H 98 Nasal Cannula 2 12/14/24 18:23 12/14/24 20:10 12/14/24 20:10 12/14/24 18:23 12/14/24 20:10 12/14/24 18:23 12/14/24 20:10 Constitutional Comments: Alert oriented Routine Respiratory Exam Comments: Normal to auscultation Routine Abdominal Exam Comments: Soft nontender Results Labs 12/14/24 09:00 12/14/24 09:00 Labs: Short CBC 12/14/24 Range/Units 09:00 WBC 10.1 (3.8-10.6) Thou/mm3 Hgb 11.6 L (13.5-16.0) g/dL Hct 36.0 L (41.0-53.0) % Plt Count 314 D (140-440) Thou/mm3 BMP 12/14/24 09:00 Sodium 141 Potassium 4.5 Chloride 98 Carbon Dioxide 28.1 BUN 51 H Creatinine 7.5 H* Glucose 193 H Calcium 9.3 Cardiac Enzymes 12/14/24 12/14/24 Range/Units 09:00 17:01 Troponin I 0.088 H* 0.108 H* (0.0-0.045) ng/mL Liver Function 12/14/24 Range/Units 09:00 Total Bilirubin 0.2 L (0.3-1.2) mg/dL AST 16 (0-34) U/L ALT 20 (10-49) U/L Alkaline Phosphatase 103 (46-116) U/L Albumin 4.0 (3.5-5.0) gm/dL Assessment and Plan Additional Assessment & Plan Additional Plan: # Coffee-ground hematemesis etiology uncertain Plan Agree with the IV Protonix as well as IV octreotide Consent obtained in Mong[place]ian for fiberoptic esophagogastroduodenoscopy with possible therapeutic intervention under intravenous moderate sedation Other medical problems include # End-stage renal disease on hemodialysis MWF # CVA with left-sided motor weakness residual # IDDM # Essential hypertension Thank you very much for the opportunity to participate in the care of this patient
--- NOTE | 2024-12-14 20:49 | SUR.PHASEI ---
2048 patient arrived to recovery, report received from Bailey STAFFORD
--- NOTE | 2024-12-14 21:19 | SUR.PHASEI ---
2116 Report given to Surinder STAFFORD, patient meets discharge criteria from recovery, awake and talking with staff, on oxygen 2L via nasal cannula, breathing unlabored, vital signs stable, denies pain and nausea. 2118 Patient transported via rney to room 376 without incident, Surinder STAFFORD and FOOD MIXER ASSEMBLER promptly in patient room and assisted with transferring patient from [place] to bed, patient resting comfortably in bed with call light in reach and RN at bedside when this song writer left patients room
[2024-12-14] MEDS: hydrALAZINE HCL 25 MG TABLET PO (21:30)
[2024-12-14] MEDS: SUCRALFATE SUSP 1 GM/10 ML UDC PO (21:32)
[2024-12-14 23:49] LABS: Troponin I 0.092 ng/mL (0.0-0.045)
[2024-12-15] VITALS (15 sets, daily range): BP systolic 125–226; BP diastolic 77–140; PULSE 85–102; RESP 13–30; TEMP 36.2–37.2; O2SAT 94–99
[2024-12-15] MEDS: INSULIN LISPRO (AdmeLOG) 1 UNIT/0.01 ML UNIT SC ×2 (00:06→17:52)
[2024-12-15] MEDS: hydrALAZINE HCL 25 MG TABLET PO (05:22)
[2024-12-15] MEDS: SUCRALFATE SUSP 1 GM/10 ML UDC PO ×4 (05:22→20:08)
[2024-12-15] MEDS: ONDANSETRON INJ 2 MG/ML INJ 2 ML 4 MG IV ×2 (05:22→20:08)
[2024-12-15 05:54] LABS: Basophils # (Auto) 0.1 Thou/mm3 (0.0-0.2); Basophils % (Auto) 1 % (0-2.5); Eosinophils % (Auto) 0 % (0-10); Hematocrit 38.2 % (41.0-53.0); Hemoglobin 12.1 g/dL (13.5-16.0); Immature Granulocytes % (Auto) 0 % (0-0); Immature Granulocytes Auto 0.03 Thou/mm3 (0.00-0.00); Lymphocytes # (Auto) 2.4 Thou/mm3 (1.0-4.8); Lymphocytes % (Auto) 25 % (10-50); Mean Corpuscular HGB Conc 31.7 g/dl (31.0-37.0); Mean Corpuscular Hemoglobin 28.7 pg (25.0-35.0); Mean Corpuscular Volume 91 fL (80-100); Monocytes # (Auto) 0.9 Thou/mm3 (0.0-0.8); Monocytes % (Auto) 9 % (0-12); Neutrophils # (Auto) 6.1 Thou/mm3 (1.8-7.7); Neutrophils % (Auto) 64 % (37-80); Nucleated Red Blood Cell % 0 /100 WBC (0); Platelet Count 284 Thou/mm3 (140-440); RDW Standard Deviation 49.5 fL (35.1-43.9); Red Blood Count 4.21 Miln/mm3 (4.50-5.90); White Blood Count 9.5 Thou/mm3 (3.8-10.6)
[2024-12-15 07:00] LABS: Alanine Aminotransferase 21 U/L (10-49); Albumin/Globulin Ratio 1.3 (1.2-2.2); Alkaline Phosphatase 103 U/L (46-116); Anion Gap 17 (7-16); Aspartate Amino Transferase 33 U/L (0-34); BUN/Creatinine Ratio 4 Ratio (12-20); Bilirubin,Total 0.3 mg/dL (0.3-1.2); Blood Urea Nitrogen 25 mg/dL (9-23); Calcium 9.3 mg/dL (8.3-10.6); Calcium (Corrected) 9.3 mg/dL (8.5-10.1); Carbon Dioxide 24.5 mMol/L (20.0-31.0); Chloride 99 mMol/L (98-107); Creatinine (Component) 6.1 mg/dL (0.6-1.3); Estimated Creatinine Clearance 28.1 mL/min (>60); Glucose 104 mg/dL (74-106); Magnesium 2.2 mg/dL (1.6-2.6); Osmolality,Calculated 283 (275-295); Phosphorous 6.9 mg/dL (2.4-5.1); Potassium 4.7 mMol/L (3.4-5.1); Sodium 140 mMol/L (136-145); eGFR 11 See Note
[2024-12-15 07:04] LABS: Troponin I 0.086 ng/mL (0.0-0.045)
[2024-12-15 07:07] LABS: Glucose Estimated Average 120 mg/dL (80-131); Hemoglobin A1C 5.8 % Hgb (4.8-6.0)
[2024-12-15] MEDS: hydrALAZINE INJ 20 MG/ML VIAL 10 MG IV ×2 (07:45→20:20)
[2024-12-15] MEDS: HYDROmorphone INJ 2 MG/ML VIAL 0.25 MG IVP (07:56)
--- NOTE | 2024-12-15 09:01 | EKG_ITS ---
[facility] Test Date: 2024-12-15 Pat Name: AGUILA YOO [facility] Gender: Male General Lot Attendant: BRADLEY : [id number] Requested By: Tremaine Wellington Order Number: [id number] Reading MD: Tremaine Wellington Measurements Intervals [place] Rate: 93 P: 11 HI: 136 QRS: 26 QRSD: 90 T: 38 QT: 383 QTc: 476 Interpretive Statements SINUS RHYTHM Compared to ECG 12/14/2024 08:53:45 No significant changes /store/S0/[id number].pdf
--- NOTE | 2024-12-15 09:03 | XR_ITS ---
Examination: AP chest single view Technique: AP portable semiupright chest single view. Exam date and time: December 15, 2024, 0820 hrs. Indications: Shortness of breath today. Findings: Mild prominence left ventricle. Right internal jugular dialysis catheter tip satisfactory position. No pneumonia or pulmonary edema Impression: No pneumonia or pulmonary edema.
[2024-12-15] MEDS: MORPHINE SULF INJ 10 MG/ML VIAL 2 MG IVP (09:07)
[2024-12-15] MEDS: LABETALOL INJ 5 MG/ML VIAL 20 ML 10 MG IVP (09:08)
[2024-12-15] MEDS: HYDROmorphone INJ 2 MG/ML VIAL 1 MG IVP (09:13)
--- NOTE | 2024-12-15 09:19 | XR_ITS ---
Examination: Abdomen AP single view Technique: AP portable supine abdomen, single view Exam date and time: December 15, 2024, 0822 hrs. Indications: Post orogastric tube placement. Findings: Nonobstructive bowel gas pattern No orogastric tube noted. No free air Impression: No orogastric tube noted Moderate stool throughout the colon
[2024-12-15] MEDS: OCTREOTIDE ACET INJ 1,000 MCG in SODIUM CHLORIDE 0.9% 100 ML 5.1 MCG IV (09:24)
[2024-12-15] MEDS: carVEDILOL 3.125 MG TABLET PO (09:28)
[2024-12-15] MEDS: INSULIN GLARGINE (Lantus) 5 UNIT/0.05 ML (PER 5 UNITS) 10 UNIT SC (09:30)
[2024-12-15 10:30] LABS: Basophils % (Auto) 0 % (0-2.5); Eosinophils % (Auto) 0 % (0-10); Hemoglobin 12.8 g/dL (13.5-16.0); Immature Granulocytes % (Auto) 0 % (0-0); Immature Granulocytes Auto 0.01 Thou/mm3 (0.00-0.00); Lactate (Lactic Acid) 3.2 mMol/L (0.4-2.0); Lymphocytes # (Auto) 1.3 Thou/mm3 (1.0-4.8); Lymphocytes % (Auto) 15 % (10-50); Mean Corpuscular HGB Conc 31.2 g/dl (31.0-37.0); Mean Corpuscular Hemoglobin 28.8 pg (25.0-35.0); Mean Corpuscular Volume 92 fL (80-100); Monocytes # (Auto) 0.4 Thou/mm3 (0.0-0.8); Monocytes % (Auto) 5 % (0-12); Neutrophils # (Auto) 6.7 Thou/mm3 (1.8-7.7); Neutrophils % (Auto) 79 % (37-80); Nucleated Red Blood Cell % 0 /100 WBC (0); Platelet Count 290 Thou/mm3 (140-440); RDW Standard Deviation 51.2 fL (35.1-43.9); Red Blood Count 4.44 Miln/mm3 (4.50-5.90); White Blood Count 8.5 Thou/mm3 (3.8-10.6)
[2024-12-15 11:06] LABS: Troponin I 0.083 ng/mL (0.0-0.045)
--- NOTE | 2024-12-15 11:14 | PC.NURSE ---
Dr. Chinchilla, Dr. Madrigal and team came to see patient at bedside, verbal orders to hold blood pressure medications
--- NOTE | 2024-12-15 11:44 | PD.RESPRO ---
Documentation for date of: 12/15/24 Subjective Subjective Interval history: Mr. Go is a 49-year-old male with significant past medical history of hypertension, diabetes mellitus, CVA with residual left-sided deficits, ESRD on HD [M/W/F] presented to the hospital with chief complaint of hematemesis since 1day. Patient was apparently normal till last night, later developed multiple episodes of nausea with vomiting of blood. Patient endorsed that he is having diffuse abdominal pain along with vomitings. Denies heartburn, NSAIDs, alcohol intake, similar history, fever, shortness of breath, abdominal distention, pedal edema ED Course: -Initial vitals were blood pressure 234/124 mmHg, pulse rate 97 bpm, respiratory rate 17/min, SpO2 94% with room air -Labs significant for WBC 10.1, Hb 11.6, platelets 314, INR 1, sodium 141, potassium 4.5, chloride 98, bicarb 28.1, BUN 51, creatinine 7.5, glucose 193, procalcitonin 0.13. -CT abdomen/pelvis showed changes consistent with chronic kidney disease. Chest x-ray did not show any infiltrates. -In the ED, patient was given octreotide, pantoprazole and labetalol -Patient was admitted for upper GI bleed Patient was complaining of significant nausea-NG tube was placed. Nephrology was consulted as patient is having ESRD 12/15/2024 Patient was seen and examined bedside. No acute overnight events. Underwent EGD yesterday and found esophagitis and severe erythematous mucosa in gastric antrum. Patient is still having elevated blood pressures. Labs showed BUN 25, creatinine 6.1 Will continue dialysis sessions as per his routine schedule Exam Vital Signs Temp Pulse Resp BP Pulse Ox O2 Del Method O2 Flow Rate 97.9 F 94 13 164/93 H 98 Room Air 2 12/15/24 11:05 12/15/24 11:05 12/15/24 11:05 12/15/24 11:05 12/15/24 11:05 12/15/24 11:05 12/15/24 00:00 Narrative Exam General: Awake. HEENT: Normocephalic, atraumatic, mucous membranes moist. Heart: Regular rate and rhythm, no murmurs. Lungs: Clear to auscultation with no wheezing or crackles. Abdomen: Soft, nondistended, nontender, positive bowel sounds. ?No guarding or rebound tenderness. Neurologic: Alert and oriented x3, no gross neurological deficit, and patient able to move all 4 extremities. Extremities: No edema. AV fistula surgery on right upper extremity. Skin: No rash or ecchymoses. Objective Labs 12/16/24 05:06 12/16/24 05:06 Labs: Laboratory Results - last 24 hr 12/14/24 12/14/24 12/15/24 17:01 22:06 05:00 WBC 9.5 RBC 4.21 L Hgb 12.1 L Hct 38.2 L MCV 91 MCH 28.7 MCHC 31.7 RDW Std Deviation 49.5 H Plt Count 284 D Neut % (Auto) 64 Lymph % (Auto) 25 [place] % (Auto) 9 Eos % (Auto) 0 Baso % (Auto) 1 Neut # (Auto) 6.1 Lymph # (Auto) 2.4 [place] # (Auto) 0.9 H Eos # (Auto) 0.0 Baso # (Auto) 0.1 Immature Gran # (Auto) 0.03 H Absolute Nucleated RBC 0.00 Immature Gran % 0 Nucleated RBC % 0 Sodium 140 Potassium 4.7 Chloride 99 Carbon Dioxide 24.5 Anion Gap 17 H BUN 25 H Creatinine 6.1 H* D Estim Creat Clear Calc 28.1 L eGFR 11 L* BUN/Creatinine Ratio 4 L Glucose [address] Glu mg/dL 120 Hemoglobin A1c 5.8 Calculated Osmolality 283 Lactic Acid Calcium 9.3 Corrected Calcium 9.3 Phosphorus 6.9 H Magnesium 2.2 Total Bilirubin 0.3 AST 33 ALT 21 Alkaline Phosphatase 103 Troponin I 0.108 H* 0.092 H* 0.086 H* Total Protein 7.0 Albumin 4.0 Globulin 3.0 Albumin/Globulin Ratio 1.3 12/15/24 10:02 WBC 8.5 RBC 4.44 L Hgb 12.8 L Hct 41.0 MCV 92 MCH 28.8 MCHC 31.2 RDW Std Deviation 51.2 H Plt Count 290 Neut % (Auto) 79 Lymph % (Auto) 15 [place] % (Auto) 5 Eos % (Auto) 0 Baso % (Auto) 0 Neut # (Auto) 6.7 Lymph # (Auto) 1.3 [place] # (Auto) 0.4 Eos # (Auto) 0.0 Baso # (Auto) 0.0 Immature Gran # (Auto) 0.01 H Absolute Nucleated RBC 0.00 Immature Gran % 0 Nucleated RBC % 0 Sodium Potassium Chloride Carbon Dioxide Anion Gap BUN Creatinine Estim Creat Clear Calc eGFR BUN/Creatinine Ratio Glucose Estimated Ave Glu mg/dL Hemoglobin A1c Calculated Osmolality Lactic Acid 3.2 H Calcium Corrected Calcium Phosphorus Magnesium Total Bilirubin AST ALT Alkaline Phosphatase Troponin I 0.083 H* Total Protein Albumin Globulin Albumin/Globulin Ratio Quality Measures Quality Measures VTE prophylaxis Assessment & Plan Assessment Current Active Medications: Generic Name Dose Route Start Last Admin Trade Name Freq PRN Reason Stop Dose Admin Carvedilol 3.125 mg 12/14/24 13:15 12/15/24 09:28 Carvedilol 3.125 Mg Tablet PO 01/13/25 13:14 3.125 mg BID KIMBERLEE Administration Dextrose 25 ml 12/14/24 16:11 Dextrose 50%-Water Inj 50 Ml Syringe IV 01/13/25 16:10 Q15MIN PRN BG 50-70 responsive npo pt Dextrose 50 ml 12/14/24 16:11 Dextrose 50%-Water Inj 50 Ml Syringe IV 01/13/25 16:10 Q15MIN PRN BG <50 OR BG <70 & pt unresponsive Glucagon 1 mg 12/14/24 16:11 Glucagon Inj 1 Mg Vial IM Q15MIN PRN BG <70, and no IV access Heparin Sodium (Porcine) 3,300 unit 12/14/24 15:20 12/14/24 18:22 Heparin Sod Inj 1000 Unit/Ml Vial 10 Ml INDWELLCAT 12/28/24 15:19 3,300 unit PRN PRN Administration DIALYSIS Hydralazine HCl 25 mg 12/14/24 13:15 12/15/24 05:22 Hydralazine Hcl 25 Mg Tablet PO 01/13/25 13:14 25 mg QID KIMBERLEE Administration Hydralazine HCl 10 mg 12/14/24 13:16 12/15/24 07:45 Hydralazine Inj 20 Mg/Ml Vial IV 01/13/25 13:29 10 mg Q8H PRN Administration SBP>160 Hydromorphone HCl 0.25 mg 12/14/24 15:53 12/15/24 07:56 Hydromorphone Inj 2 Mg/Ml Vial IVP 12/19/24 15:52 0.25 mg Q6H PRN Administration PAIN Insulin Glargine 10 unit 12/15/24 09:00 12/15/24 09:30 Insulin Glargine (Lantus) 5 Unit/0.05 Ml (Per 5 Units) SC 01/14/25 08:59 10 unit QDAY KIMBERLEE Administration Insulin Human Lispro 0 unit 12/14/24 18:00 12/15/24 05:16 Insulin Lispro (Admelog) 1 Unit/0.01 Ml Unit SC 01/13/25 17:59 Not Given Q6HR [facility] Protocol Ondansetron HCl 4 mg 12/14/24 11:10 12/15/24 05:22 Ondansetron Inj 2 Mg/Ml Inj 2 Ml IV 01/13/25 11:09 4 mg Q6H PRN Administration NAUSEA OR VOMITING Protocol Sucralfate 1 gm 12/14/24 21:00 12/15/24 05:22 Sucralfate Susp 1 Gm/10 Ml Udc PO 01/13/25 20:59 1 gm QID KIMBERLEE Administration Plan [id number] male with significant past medical history of hypertension, diabetes mellitus, CVA with residual left-sided deficits, ESRD on HD [M/W/F] presented to the hospital with chief complaint of hematemesis since 1 day. # ESRD on HD [M/W/F] Likely due to diabetes mellitus, hypertension -Patient was started on dialysis since 2 months -Per patient, patient is able to produce only minimal amount of urine -Last dialysis session was on 12/12/2024 -Patient was admitted for upper GI bleed Plan -HD was done on 12/14/2024 -Will continue dialysis as per his routine schedule during the hospital visit -Avoid nephrotoxic medication and renally dose medications # Hypertensive urgency, resolved -Blood pressure at the time of admission is 234/124 mmHg -Patient missed dialysis session that should be done in the morning on the day of admission -Patient received 2 doses of labetalol, 1 dose of hydralazine 10 Mg in the ED at the time of admission Plan -Continue carvedilol, hydralazine and titrate the doses of medications according to blood pressures -Recommended to monitor blood pressure and resume his home medications #Upper GI bleed #NSTEMI type I (less likely) versus type II #Diabetes -Rest of the medical conditions to be treated as per primary team Thank you for allowing to involved in the care of the patient Patient plan of care was discussed with the attending physician, Dr.Vemuri Nitin Dixon, PGY1 Attending Provider Attestation/Addendum Patient seen and examined with resident physician Dr. Taveras. Note reviewed, agree with findings and recommendations. Next dialysis scheduled for tomorrow.
[2024-12-15] MEDS: MG HYD/AL HYD/SIME (Maalox Reg) SUSP 30 ML UDC PO (12:27)
[2024-12-15 13:26] LABS: Reflex Lactate? Y
[2024-12-15 14:24] LABS: Lactic Acid, 3 HR 1.4 mMol/L (0.4-2.0)
--- NOTE | 2024-12-15 15:06 | PC.PT ---
PT eval withheld today due to patient adamantly refused to work with PT both in the A.M and in the afternoon when approached. Patient cites pain and fatigue as the reasons he cannot participate today. Will re-attempt PT eval at another time.
--- NOTE | 2024-12-15 15:34 | PD.RESEVENT ---
Documentation for date of: 12/15/24 Event Note Event Note: Rapid response called at approximately 10:45 AM due to severely elevated blood pressure (SBP greater than 220) with associated epigastric and chest pain and headache. Patient was evaluated, complaining of significant epigastric pain radiating to chest, nausea. Patient will episode of vomiting shortly before pain began, nonbilious. Patient was given 2 mg morphine, 10 mg labetalol, 1 mg Dilaudid. Patient began experiencing pain relief, blood pressure decreased SCP <190. Oral antihypertensives held to prevent rapid drop in blood pressure. Chest and abdominal x-rays were taken which were unremarkable, no signs of free air in the mediastinum or abdomen. Lactic acid WNL, troponin downtrending from previous value. Jseus Glaser MD PGY?1
--- NOTE | 2024-12-15 15:46 | ESPR_ITS ---
<Statement entered by Chasidy Chinchilla MD - 12/16/24 07:47> I discussed with and supervised the statistics intern physician who took care of this patient. I personally saw and examined the patient and discussed the assessment and plan with the entire medicine team, including my attending Dr. Lopes , I agree with most of the assessment and plan as documented below Chasidy Chinchilla M.D. PGY-2 Documentation for date of: 12/15/24 Subjective Subjective Interval history: Response was called spread cutter due to severely elevated blood pressure with associated epigastric and chest pain, headache. Patient treated with IV Dilaudid and morphine, IV labetalol. Patient 1 episode of bilious emesis prior to pain, suspect pain was due to vomiting causing irritation to Concetta-Nicholson tear, causing elevated blood pressure. Patient seen and examined at bedside, clear distress. Patient remains in pain improved with IV pain meds. Endorses nausea. Denies fever, chills, shortness of breath. Oral antihypertensives held to prevent rapid decrease in blood pressure. EGD showed Concetta-Nicholson tear, stigmata of recent bleed, started on sucralfate per GI recommendations. Exam Vital Signs Temp Pulse Resp BP Pulse Ox O2 Del Method O2 Flow Rate 97.8 F 87 14 141/84 H 98 Room Air 2 12/15/24 12:00 12/15/24 14:06 12/15/24 12:00 12/15/24 12:00 12/15/24 12:00 12/15/24 12:12/15/24 00:00 Narrative Exam PE: Gen: Well-developed and well-nourished. Obese. HEENT: NCAT, PERRLA, EOMI, MMM, anicteric conjunctivae. CVS: normal S1 and S2. RRR. No M/R/G. Chest catheter for dialysis. Resp: CTA B/L. No rhonchi, rales, crackles or wheezing. Abd: soft, non-distended. Epigastric tenderness. MSK: Good ROM in RUE & BLE. No edema or rash. Left upper extremity proximal muscle weakness, unable to fully open hand. Right upper extremity fistula. Neuro: CN II-XII grossly intact. Strength 5/5 in RUE & BLE. Alert and oriented x3. Psych: appropriate mood and affect. Objective Labs 12/15/24 10:02 12/15/24 05:00 Labs: Laboratory Results - last 24 hr 12/14/24 12/14/24 12/15/24 17:01 22:06 05:00 WBC 9.5 RBC 4.21 L Hgb 12.1 L Hct 38.2 L MCV 91 MCH 28.7 MCHC 31.7 RDW Std Deviation 49.5 H Plt Count 284 D Neut % (Auto) 64 Lymph % (Auto) 25 [place] % (Auto) 9 Eos % (Auto) 0 Baso % (Auto) 1 Neut # (Auto) 6.1 Lymph # (Auto) 2.4 [place] # (Auto) 0.9 H Eos # (Auto) 0.0 Baso # (Auto) 0.1 Immature Gran # (Auto) 0.03 H Absolute Nucleated RBC 0.00 Immature Gran % 0 Nucleated RBC % 0 Sodium 140 Potassium 4.7 Chloride 99 Carbon Dioxide 24.5 Anion Gap 17 H BUN 25 H Creatinine 6.1 H* D Estim Creat Clear Calc 28.1 L eGFR 11 L* BUN/Creatinine Ratio 4 L Glucose [address] Glu mg/dL 120 Hemoglobin A1c 5.8 Calculated Osmolality 283 Lactic Acid Calcium 9.3 Corrected Calcium 9.3 Phosphorus 6.9 H Magnesium 2.2 Total Bilirubin 0.3 AST 33 ALT 21 Alkaline Phosphatase 103 Troponin I 0.108 H* 0.092 H* 0.086 H* Total Protein 7.0 Albumin 4.0 Globulin 3.0 Albumin/Globulin Ratio 1.3 12/15/24 12/15/24 10:02 14:13 WBC 8.5 RBC 4.44 L Hgb 12.8 L Hct 41.0 MCV 92 MCH 28.8 MCHC 31.2 RDW Std Deviation 51.2 H Plt Count 290 Neut % (Auto) 79 Lymph % (Auto) 15 [place] % (Auto) 5 Eos % (Auto) 0 Baso % (Auto) 0 Neut # (Auto) 6.7 Lymph # (Auto) 1.3 [place] # (Auto) 0.4 Eos # (Auto) 0.0 Baso # (Auto) 0.0 Immature Gran # (Auto) 0.01 H Absolute Nucleated RBC 0.00 Immature Gran % 0 Nucleated RBC % 0 Sodium Potassium Chloride Carbon Dioxide Anion Gap BUN Creatinine Estim Creat Clear Calc eGFR BUN/Creatinine Ratio Glucose Estimated Ave Glu mg/dL Hemoglobin A1c Calculated Osmolality Lactic Acid 3.2 H 1.4 Calcium Corrected Calcium Phosphorus Magnesium Total Bilirubin AST ALT Alkaline Phosphatase Troponin I 0.083 H* Total Protein Albumin Globulin Albumin/Globulin Ratio Quality Measures Quality Measures VTE prophylaxis Assessment & Plan Assessment Current Active Medications: Generic Name Dose Route Start Last Admin Trade Name Freq PRN Reason Stop Dose Admin Carvedilol 3.125 mg 12/14/24 13:15 12/15/24 09:28 Carvedilol 3.125 Mg Tablet PO 01/13/25 13:14 3.125 mg BID KIMBERLEE Administration Dextrose 25 ml 12/14/24 16:11 Dextrose 50%-Water Inj 50 Ml Syringe IV 01/13/25 16:10 Q15MIN PRN BG 50-70 responsive npo pt Dextrose 50 ml 12/14/24 16:11 Dextrose 50%-Water Inj 50 Ml Syringe IV 01/13/25 16:10 Q15MIN PRN BG <50 OR BG <70 & pt unresponsive Glucagon 1 mg 12/14/24 16:11 Glucagon Inj 1 Mg Vial IM Q15MIN PRN BG <70, and no IV access Heparin Sodium (Porcine) 3,300 unit 12/14/24 15:20 12/14/24 18:22 Heparin Sod Inj 1000 Unit/Ml Vial 10 Ml INDWELLCAT 12/28/24 15:19 3,300 unit PRN PRN Administration DIALYSIS Hydralazine HCl 25 mg 12/14/24 13:15 12/15/24 12:08 Hydralazine Hcl 25 Mg Tablet PO 01/13/25 13:14 Not Given QID KIMBERLEE Hydralazine HCl 10 mg 12/14/24 13:16 12/15/24 07:45 Hydralazine Inj 20 Mg/Ml Vial IV 01/13/25 13:29 10 mg Q8H PRN Administration SBP>160 Hydromorphone HCl 0.25 mg 12/14/24 15:53 12/15/24 07:56 Hydromorphone Inj 2 Mg/Ml Vial IVP 12/19/24 15:52 0.25 mg Q6H PRN Administration PAIN Insulin Glargine 10 unit 12/15/24 09:00 12/15/24 09:30 Insulin Glargine (Lantus) 5 Unit/0.05 Ml (Per 5 Units) SC 01/14/25 08:59 10 unit QDAY KIMBERLEE Administration Insulin Human Lispro 0 unit 12/14/24 18:00 12/15/24 05:16 Insulin Lispro (Admelog) 1 Unit/0.01 Ml Unit SC 01/13/25 17:59 Not Given Q6HR [facility] Protocol Ondansetron HCl 4 mg 12/14/24 11:10 12/15/24 05:22 Ondansetron Inj 2 Mg/Ml Inj 2 Ml IV 01/13/25 11:09 4 mg Q6H PRN Administration NAUSEA OR VOMITING Protocol Sucralfate 1 gm 12/14/24 21:00 12/15/24 12:27 Sucralfate Susp 1 Gm/10 Ml Udc PO 01/13/25 20:59 1 gm QID KIMBERLEE Administration Plan 49 y/o M with PMHx significant for CVA with residual left-sided deficits, diabetes, hypertension, ESRD on dialysis (M/W/F) presents to facility with chief complaint of coffee-ground emesis x 1 day, admitted for upper GI bleed. #Concetta-Nicholson tear Patient presented with chief complaint of coffee-ground emesis with multiple rounds of vomiting. Associated with abdominal pain. Patient does not have melena or hematochezia. Patient has no history of hematemesis or gastric ulceration. Patient placed on Protonix drip in ED. Patient received EGD which showed Concetta-Nicholson tear, stigmata of recent bleeding, esophagitis and gastritis. Did not show active bleeding. The following morning patient had episode of nonbloody bilious emesis, followed by severe epigastric pain with associated chest pain and hypertensive crisis. Pain improved with IV Dilaudid. Troponin unremarkable. EKG unremarkable. Chest x- ray abdominal x-ray showed no signs of perforation or free air. -GI consulted, appreciate recommendations -Monitor hemoglobin, transfuse if needed -Dilaudid 0.5 mg IV every 6 hours as needed for severe pain -Sucralfate 1 g p.o. 4 times daily -Clear liquid diet, advance as tolerated #Hypertensive urgency Patient presented with significantly elevated blood pressure 234/124. Patient denies headache, visual changes, has had blood pressure is elevated in the past. Patient scheduled to receive dialysis today, likely to see improvement at that time. P.o. meds currently on hold. Labetalol IV given in ED. Patient blood pressure been trending down, increased due to severe pain related to Concetta-Nicholson tear. Improved with pain management and IV labetalol. -Aim for slow reduction. Blood pressure, less than 25% in 24-hour period. -Hydralazine 10 mg IV every 8 hours as needed for SBP greater than 160 -Holding oral antihypertensives to prevent rapid decrease in blood pressure #NSTEMI type II Patient has slight elevation troponin 0.088. Likely demand ischemia in the setting of hypertensive urgency and hematemesis. Patient does not complain of chest pain, EKG unremarkable. Troponin peaked at 0.108 #ESRD on dialysis (M/W/F) Patient has dialysis as stated. Has not missed any appointments, although is scheduled for 1 today. Nephrology has been consulted, follows with Dr. Lopez. -Dialysis as per patient's regular schedule -Renally dose med -Avoid nephrotoxins #Diabetes Patient has history of diabetes, controlled with outpatient insulin. A1c 5.8% as of 12/15/2024. -ISS -Lantus 10 units daily DVT prophylaxis: SC GI prophylaxis: Protonix drip Diet: Clear liquid diet advance as tolerated Lines: Peripheral IV Code status: Full code Plan of care discussed with senior resident Dr. Chinchilla PGY?[address] Lopes. Jesus Glaser MD PGY?1 Attending Provider Attestation/Addendum I attest that I was physically present for the evaluation, physical examination, lab and imaging review of the patient with the residents. I discussed the case with the residents and agree with the findings and plans of care as documented above. Patient had a rapid response called this morning for severely elevated blood pressure and epigastric/chest pain and headache. The patient had episodes of vomiting this morning following which she started having severe pain and hypertension. Lungs are clinically clear to auscultation and heart sounds were heard without any murmur patient has epigastric tenderness. Received IV analgesics, IV labetalol and Maalox following which his pain is started improving and blood pressure also improved. Chest x-ray and abdominal x-ray were obtained, lactate and troponin were ordered, results of these tests came unremarkable. Patient had undergone EGD yesterday, found to have Concetta-Nicholson tear, esophagitis, erythematous mucosa in antrum, erythematous duodenopathy. NG tube was discontinued, octreotide discontinued this morning as well. We will continue with Protonix and Carafate. Hemoglobin remained stable at 12.8. Started patient on diet, we will monitor closely for diet tolerance and abdominal pain. Malathi Lopes MD
[2024-12-15] MEDS: HYDROmorphone INJ 2 MG/ML VIAL 0.5 MG IVP (19:43)
--- NOTE | 2024-12-15 21:54 | ESPR_ITS ---
Documentation for date of: 12/15/24 Subjective Subjective Interval history: Patient evaluated hemoglobin hematocrit 12.8 and 41.0 Upper endoscopy showed Concetta-Nicholson tear gastric erosions esophagitis and gastritis Exam Vital Signs Temp Pulse Resp BP Pulse Ox O2 Del Method O2 Flow Rate 97.3 F 89 16 189/113 H 98 Room Air 2 12/15/24 16:00 12/15/24 20:20 12/15/24 16:00 12/15/24 20:20 12/15/24 16:00 12/15/24 16:00 12/15/24 16:00 Objective Labs 12/15/24 10:02 12/15/24 05:00 Labs: Laboratory Results - last 24 hr 12/14/24 12/15/24 12/15/24 22:06 05:00 10:02 WBC 9.5 8.5 RBC 4.21 L 4.44 L Hgb 12.1 L 12.8 L Hct 38.2 L 41.0 MCV 91 92 MCH 28.7 28.8 MCHC 31.7 31.2 RDW Std Deviation 49.5 H 51.2 H Plt Count 284 D 290 Neut % (Auto) 64 79 Lymph % (Auto) 25 15 [place] % (Auto) 9 5 Eos % (Auto) 0 0 Baso % (Auto) 1 0 Neut # (Auto) 6.1 6.7 Lymph # (Auto) 2.4 1.3 [place] # (Auto) 0.9 H 0.4 Eos # (Auto) 0.0 0.0 Baso # (Auto) 0.1 0.0 Immature Gran # (Auto) 0.03 H 0.01 H Absolute Nucleated RBC 0.00 0.00 Immature Gran % 0 0 Nucleated RBC % 0 0 Sodium 140 Potassium 4.7 Chloride 99 Carbon Dioxide 24.5 Anion Gap 17 H BUN 25 H Creatinine 6.1 H* D Estim Creat Clear Calc 28.1 L eGFR 11 L* BUN/Creatinine Ratio 4 L Glucose [address] Glu mg/dL 120 Hemoglobin A1c 5.8 Calculated Osmolality 283 Lactic Acid 3.2 H Calcium 9.3 Corrected Calcium 9.3 Phosphorus 6.9 H Magnesium 2.2 Total Bilirubin 0.3 AST 33 ALT 21 Alkaline Phosphatase 103 Troponin I 0.092 H* 0.086 H* 0.083 H* Total Protein 7.0 Albumin 4.0 Globulin 3.0 Albumin/Globulin Ratio 1.3 12/15/24 14:13 WBC RBC Hgb Hct MCV MCH MCHC RDW Std Deviation Plt Count Neut % (Auto) Lymph % (Auto) [place] % (Auto) Eos % (Auto) Baso % (Auto) Neut # (Auto) Lymph # (Auto) [place] # (Auto) Eos # (Auto) Baso # (Auto) Immature Gran # (Auto) Absolute Nucleated RBC Immature Gran % Nucleated RBC % Sodium Potassium Chloride Carbon Dioxide Anion Gap BUN Creatinine Estim Creat Clear Calc eGFR BUN/Creatinine Ratio Glucose Estimated Ave Glu mg/dL Hemoglobin A1c Calculated Osmolality Lactic Acid 1.4 Calcium Corrected Calcium Phosphorus Magnesium Total Bilirubin AST ALT Alkaline Phosphatase Troponin I Total Protein Albumin Globulin Albumin/Globulin Ratio Impressions Impression: Gastritis erosive Concetta-Nicholson tear Gastritis Esophagitis Continue current management Assessment & Plan A&P Narrative # Coffee-ground hematemesis etiology uncertain Plan Agree with the IV Protonix as well as IV octreotide Consent obtained in Maltese for fiberoptic esophagogastroduodenoscopy with possible therapeutic intervention under intravenous moderate sedation Other medical problems include # End-stage renal disease on hemodialysis MWF # CVA with left-sided motor weakness residual # IDDM # Essential hypertension Thank you very much for the opportunity to participate in the care of this patient Time Spent With Patient Time: Total time spent is greater than 50% in coordination of care (as documented) at patient's floor/unit and/or counseling patient:
[2024-12-16] VITALS (36 sets, daily range): BP systolic 92–201; BP diastolic 56–116; PULSE 82–102; RESP 14–22; TEMP 36.4–37; O2SAT 93–99; BMI 35.3
[2024-12-16] MEDS: MG HYD/AL HYD/SIME (Maalox Reg) SUSP 30 ML UDC PO (00:05)
[2024-12-16] MEDS: PANTOPRAZOLE INJ 40 MG VIAL IVP ×3 (00:08→21:23)
[2024-12-16] MEDS: INSULIN LISPRO (AdmeLOG) 1 UNIT/0.01 ML UNIT SC ×2 (00:22→05:36)
[2024-12-16] MEDS: HYDROmorphone INJ 2 MG/ML VIAL 0.5 MG IVP ×3 (03:40→12:00)
[2024-12-16] MEDS: ONDANSETRON INJ 2 MG/ML INJ 2 ML 4 MG IV ×4 (03:43→21:08)
[2024-12-16] MEDS: hydrALAZINE INJ 20 MG/ML VIAL 5 MG IV (04:25)
--- NOTE | 2024-12-16 04:48 | EKG_ITS ---
[facility] Test Date: 2024-12-16 Pat Name: AGUILA YOO [facility] Gender[facility] Lab Technologist: PHILIPPE : [id number] Requested By: Viviane Prescott Order Number: [id number] Reading MD: Viviane Prescott Measurements Intervals [place] Rate: 89 P: 48 TN: 150 QRS: 32 QRSD: 93 T: 22 QT: 389 QTc: 476 Interpretive Statements SINUS RHYTHM Compared to ECG 12/15/2024 09:04:38 No significant changes /store/S0/[id number].pdf
--- NOTE | 2024-12-16 04:48 | XR_ITS ---
Examination: AP chest single view Technique: AP portable semiupright chest single view Exam date and time: December 16, 2024, 0407 hrs. Comparison December 15, 2024 Indications: Onset chest pain today. Findings: Mild prominence left ventricle. Moderate vascular congestion. Early septal edema at the lung bases. Right internal jugular dialysis catheter satisfactory position. Impression: Mild heart failure
[2024-12-16] MEDS: SUCRALFATE SUSP 1 GM/10 ML UDC PO ×3 (05:36→16:37)
[2024-12-16 06:18] LABS: Basophils % (Auto) 0 % (0-2.5); Eosinophils % (Auto) 0 % (0-10); Hemoglobin 12.4 g/dL (13.5-16.0); Immature Granulocytes % (Auto) 0 % (0-0); Immature Granulocytes Auto 0.03 Thou/mm3 (0.00-0.00); Lymphocytes # (Auto) 1.4 Thou/mm3 (1.0-4.8); Lymphocytes % (Auto) 20 % (10-50); Mean Corpuscular HGB Conc 31.8 g/dl (31.0-37.0); Mean Corpuscular Hemoglobin 28.8 pg (25.0-35.0); Mean Corpuscular Volume 91 fL (80-100); Monocytes # (Auto) 0.6 Thou/mm3 (0.0-0.8); Monocytes % (Auto) 8 % (0-12); Neutrophils % (Auto) 71 % (37-80); Nucleated Red Blood Cell % 0 /100 WBC (0); Platelet Count 311 Thou/mm3 (140-440); RDW Standard Deviation 49.7 fL (35.1-43.9)
[2024-12-16 07:04] LABS: Alanine Aminotransferase 15 U/L (10-49); Albumin, Serum 3.9 gm/dL (3.5-5.0); Albumin/Globulin Ratio 1.2 (1.2-2.2); Alkaline Phosphatase 99 U/L (46-116); Anion Gap 16 (7-16); Aspartate Amino Transferase 31 U/L (0-34); BUN/Creatinine Ratio 6 Ratio (12-20); Bilirubin,Total 0.4 mg/dL (0.3-1.2); Blood Urea Nitrogen 47 mg/dL (9-23); Calcium 9.1 mg/dL (8.3-10.6); Calcium (Corrected) 9.2 mg/dL (8.5-10.1); Carbon Dioxide 26.9 mMol/L (20.0-31.0); Chloride 97 mMol/L (98-107); Creatinine (Component) 8.4 mg/dL (0.6-1.3); Estimated Creatinine Clearance 20.4 mL/min (>60); Globulin 3.2 gm/dL (2.3-3.5); Glucose 154 mg/dL (74-106); Magnesium 2.5 mg/dL (1.6-2.6); Osmolality,Calculated 294 (275-295); Phosphorous 7.3 mg/dL (2.4-5.1); Potassium 4.4 mMol/L (3.4-5.1); Sodium 140 mMol/L (136-145); Total Protein 7.1 gm/dL (5.7-8.2); eGFR 7 See Note
[2024-12-16] MEDS: hydrALAZINE INJ 20 MG/ML VIAL 10 MG IV ×2 (08:33→23:38)
[2024-12-16] MEDS: INSULIN GLARGINE (Lantus) 5 UNIT/0.05 ML (PER 5 UNITS) 10 UNIT SC (08:33)
--- NOTE | 2024-12-16 10:27 | PD.RESPRO ---
Documentation for date of: 12/16/24 Subjective Subjective Interval history: Mr. Go is a 49-year-old male with significant past medical history of hypertension, diabetes mellitus, CVA with residual left-sided deficits, ESRD on HD [M/W/F] presented to the hospital with chief complaint of hematemesis since 1day. Patient was apparently normal till last night, later developed multiple episodes of nausea with vomiting of blood. Patient endorsed that he is having diffuse abdominal pain along with vomitings. Denies heartburn, NSAIDs, alcohol intake, similar history, fever, shortness of breath, abdominal distention, pedal edema ED Course: -Initial vitals were blood pressure 234/124 mmHg, pulse rate 97 bpm, respiratory rate 17/min, SpO2 94% with room air -Labs significant for WBC 10.1, Hb 11.6, platelets 314, INR 1, sodium 141, potassium 4.5, chloride 98, bicarb 28.1, BUN 51, creatinine 7.5, glucose 193, procalcitonin 0.13. -CT abdomen/pelvis showed changes consistent with chronic kidney disease. Chest x-ray did not show any infiltrates. -In the ED, patient was given octreotide, pantoprazole and labetalol -Patient was admitted for upper GI bleed Patient was complaining of significant nausea-NG tube was placed. Nephrology was consulted as patient is having ESRD 12/15/2024 Patient was seen and examined bedside. No acute overnight events. Underwent EGD yesterday and found esophagitis and severe erythematous mucosa in gastric antrum. Patient is still having elevated blood pressures. Labs showed BUN 25, creatinine 6.1 Will continue dialysis sessions as per his routine schedule 12/16/2024 Patient was seen and examined at bedside Patient continues to have high blood pressures. Still complaining of nausea and vomitings without blood Patient will be scheduled for his routine dialysis session today Recommended to monitor blood pressures and treat accordingly. Exam Vital Signs Temp Pulse Resp BP Pulse Ox O2 Del Method O2 Flow Rate 98.0 F 92 19 167/102 H 97 Room Air 2 12/16/24 08:00 12/16/24 08:33 12/16/24 08:00 12/16/24 09:50 12/16/24 08:00 12/16/24 08:00 12/15/24 16:00 Narrative Exam General: Awake. HEENT: Normocephalic, atraumatic, mucous membranes moist. Heart: Regular rate and rhythm, no murmurs. Lungs: Clear to auscultation with no wheezing or crackles. Abdomen: Soft, nondistended, nontender, positive bowel sounds. ?No guarding or rebound tenderness. Neurologic: Alert and oriented x3, no gross neurological deficit, and patient able to move all 4 extremities. Extremities: No edema. AVF on right UE Skin: No rash or ecchymoses. Objective Labs 12/16/24 05:06 12/16/24 05:06 Labs: Laboratory Results - last 24 hr 12/15/24 12/15/24 12/16/24 10:02 14:13 05:06 WBC 8.5 7.0 RBC 4.44 L 4.30 L Hgb 12.8 L 12.4 L Hct 41.0 39.0 L MCV 92 91 MCH 28.8 28.8 MCHC 31.2 31.8 RDW Std Deviation 51.2 H 49.7 H Plt Count 290 311 Neut % (Auto) 79 71 Lymph % (Auto) 15 20 [place] % (Auto) 5 8 Eos % (Auto) 0 0 Baso % (Auto) 0 0 Neut # (Auto) 6.7 5.0 Lymph # (Auto) 1.3 1.4 [place] # (Auto) 0.4 0.6 Eos # (Auto) 0.0 0.0 Baso # (Auto) 0.0 0.0 Immature Gran # (Auto) 0.01 H 0.03 H Absolute Nucleated RBC 0.00 0.00 Immature Gran % 0 0 Nucleated RBC % 0 0 Sodium 140 Potassium 4.4 Chloride 97 L Carbon Dioxide 26.9 Anion Gap 16 BUN 47 H Creatinine 8.4 H* D Estim Creat Clear Calc 20.4 L eGFR 7 L* BUN/Creatinine Ratio 6 L Glucose 154 H D Calculated Osmolality 294 Lactic Acid 3.2 H 1.4 Calcium 9.1 Corrected Calcium 9.2 Phosphorus 7.3 H Magnesium 2.5 Total Bilirubin 0.4 AST 31 ALT 15 Alkaline Phosphatase 99 Troponin I 0.083 H* Total Protein 7.1 Albumin 3.9 Globulin 3.2 Albumin/Globulin Ratio 1.2 Quality Measures Quality Measures VTE prophylaxis Assessment & Plan Assessment Current Active Medications: Generic Name Dose Route Start Last Admin Trade Name Freq PRN Reason Stop Dose Admin Carvedilol 3.125 mg 12/14/24 13:15 12/15/24 09:28 Carvedilol 3.125 Mg Tablet PO 01/13/25 13:14 3.125 mg BID KIMBERLEE Administration Dextrose 25 ml 12/14/24 16:11 Dextrose 50%-Water Inj 50 Ml Syringe IV 01/13/25 16:10 Q15MIN PRN BG 50-70 responsive npo pt Dextrose 50 ml 12/14/24 16:11 Dextrose 50%-Water Inj 50 Ml Syringe IV 01/13/25 16:10 Q15MIN PRN BG <50 OR BG <70 & pt unresponsive Epoetin Abdelrahman 10,000 unit 12/16/24 14:00 Epoetin Abdelrahman-Epbx Inj 10,000 Unit/Ml Vial (Esrd) SC 12/16/24 14:01 X1 ONE Glucagon 1 mg 12/14/24 16:11 Glucagon Inj 1 Mg Vial IM Q15MIN PRN BG <70, and no IV access Heparin Sodium (Porcine) 3,300 unit 12/14/24 15:20 12/14/24 18:22 Heparin Sod Inj 1000 Unit/Ml Vial 10 Ml INDWELLCAT 12/28/24 15:19 3,300 unit PRN PRN Administration DIALYSIS Hydralazine HCl 25 mg 12/14/24 13:15 12/15/24 12:08 Hydralazine Hcl 25 Mg Tablet PO 01/13/25 13:14 Not Given QID [facility] Hydralazine HCl 10 mg 12/14/24 13:16 12/16/24 08:33 Hydralazine Inj 20 Mg/Ml Vial IV 01/13/25 13:29 10 mg Q8H PRN Administration SBP>160 Hydromorphone HCl 1 mg 12/16/24 09:29 Hydromorphone Inj 2 Mg/Ml Vial IVP 12/19/24 15:52 Q6H PRN PAIN SCALE 4-10(Mod-Sev Insulin Glargine 10 unit 12/15/24 09:00 12/16/24 08:33 Insulin Glargine (Lantus) 5 Unit/0.05 Ml (Per 5 Units) SC 01/14/25 08:59 10 unit QDAY KIMBERLEE Administration Insulin Human Lispro 0 unit 12/14/24 18:00 12/16/24 05:36 Insulin Lispro (Admelog) 1 Unit/0.01 Ml Unit SC 01/13/25 17:59 2 unit Q6HR KIMBERLEE Administration Protocol Ondansetron HCl 4 mg 12/14/24 11:10 12/16/24 08:32 Ondansetron Inj 2 Mg/Ml Inj 2 Ml IV 01/13/25 11:09 4 mg Q6H PRN Administration NAUSEA OR VOMITING Protocol Pantoprazole Sodium 40 mg 12/15/24 23:30 12/16/24 08:33 Pantoprazole Inj 40 Mg Vial IVP 01/14/25 23:29 40 mg BID KIMBERLEE Administration Sucralfate 1 gm 12/14/24 21:00 12/16/24 05:36 Sucralfate Susp 1 Gm/10 Ml Udc PO 01/13/25 20:59 1 gm QID KIMBERLEE Administration Plan [id number] male with significant past medical history of hypertension, diabetes mellitus, CVA with residual left-sided deficits, ESRD on HD [M/W/F] presented to the hospital with chief complaint of hematemesis since 1 day. # ESRD on HD [M/W/F] Likely due to diabetes mellitus, hypertension -Patient was started on dialysis since 2 months -Per patient, patient is able to produce only minimal amount of urine -Last dialysis session was on 12/12/2024 before admission -Patient was admitted for upper GI bleed Plan -HD was done on 12/14/2024, will get HD today as per his routine schedule -Will continue dialysis as per his routine schedule during the hospital visit -Avoid nephrotoxic medication and renally dose medications # Hypertensive urgency, resolved -Blood pressure at the time of admission is 234/124 mmHg -Patient missed dialysis session that should be done in the morning on the day of admission -Patient received 2 doses of labetalol, 1 dose of hydralazine 10 Mg in the ED at the time of admission Plan -Continue carvedilol, hydralazine and titrate the doses of medications according to blood pressures -Recommended to monitor blood pressure and resume his home medications #Upper GI bleed #NSTEMI type I (less likely) versus type II #Diabetes -Rest of the medical conditions to be treated as per primary team Thank you for allowing to involved in the care of the patient Patient plan of care was discussed with the attending physician, Dr.Vemuri Nitin Dixon, PGY1 Attending Provider Attestation/Addendum Patient seen and examined with resident physician Dr. Taveras. Note reviewed, agree with findings and recommendations. 2 PM-patient currently seen on dialysis. Tolerating dialysis without any problems. Hemodialysis for 3 hours, 2K, ultrafiltration 1-2 L, Epogen 6000, no heparin ordered. Plan of care discussed with the dialysis nurse. Please see dialysis flowsheet for further details.
[2024-12-16] MEDS: METOCLOPRAMIDE INJ 5 MG/ML VIAL 2 ML IVP ×2 (12:04→23:34)
[2024-12-16] MEDS: EPOETIN ALFA-EPBX INJ 10,000 UNIT/ML VIAL (ESRD) 10000 UNIT SC (12:19)
--- NOTE | 2024-12-16 13:05 | PC.PT ---
Patient was approached for PT evaluation at 9:45. Patient adamantly refused PT and began to raise his voice to show his displeasure. PT offered to come back in the afternoon to assess the patient but he was upset and said he did not want to participate with any PT because of his pain, his nausea, and he reported feeling dizzy. PT educated patient on the benefits of movement and the limited PT coverage on the weekends but he still refused and asked the PT to leave. RN made aware. Will re-attempt at another time.
--- NOTE | 2024-12-16 14:14 | PC.NURSE ---
BP LOW PT REPORTS, PT REMAINS AAOX3, UF GOAL LOWERED TO 1.6L TOLERATED WILL CONT. TO MONITOR
--- NOTE | 2024-12-16 14:21 | PC.NURSE ---
TX TERMINATED 30 MIN EARLY D/T PT'S C/O CHEST PAIN, POST RINSE BACK PT REPORTS CHESTR PAIN SUBSIDING WILL CONT. TO MONITOR. MD FAITH NOTIFIED.
[2024-12-16] MEDS: HEPARIN SOD INJ 1000 UNIT/ML VIAL 10 ML 3300 UNIT INDWELLCAT (15:07)
--- NOTE | 2024-12-16 15:43 | ESPR_ITS ---
Documentation for date of: 12/16/24 Subjective Subjective Interval history: Overnight, patient had an episode of severe pain, given next dose of Dilaudid, Maalox and hydralazine 5 mg to help with blood pressure control. Abdomen x-ray showed no free air but moderate stool in colon. Patient has not had any bowel movement since hospitalization. Will continue with pain control and dialysis schedules per home. Reached out to GI, for further recommendations regarding patient's pain due to Concetta-Nicholson tear. Educated patient on avoidance of carbonic beverages and acidic foods. Will start patient on peptic ulcer low-fat diet on a clear liquid diet. Blood pressure continues to be around 178-200/160 113. KUB was ordered and showed pt seen and examined at bedside. Exam Vital Signs Temp Pulse Resp BP Pulse Ox O2 Del Method O2 Flow Rate 97.5 F 94 14 117/75 94 L Room Air 1 12/16/24 15:20 12/16/24 15:20 12/16/24 15:20 12/16/24 15:20 12/16/24 15:20 12/16/24 15:20 12/16/24 14:35 Narrative Exam General Appearance: Pt in moderate acute distress laying in bed. Obese. HEENT: NC/AT, no scleral icterus, no conjunctival pallor, MMM Lungs: CTAB, no wheezes or crackles appreciated CVS: RRR, S1/S2 heard, no murmurs or rubs appreciated, AV fistula on right upper extremity with good thrill ABD: Epigastric tenderness, nondistended, bowel sounds heard EXT: no deformity/edema/lesions/cyanosis/clubbing, radial pulses 2+ BL, DP pulses 2 + BL SKIN: Skin exam normal without any rashes. Neuro: A&O x 3. No gross neurological deficits. Motor and sensory grossly intact in B/L UL and LL except for left upper extremity weakness, unable to fully open hand. Psych: Appropriate mood and affect Objective Labs 12/17/24 05:23 12/17/24 05:23 Labs: Laboratory Results - last 24 hr 12/16/24 05:06 WBC 7.0 RBC 4.30 L Hgb 12.4 L Hct 39.0 L MCV 91 MCH 28.8 MCHC 31.8 RDW Std Deviation 49.7 H Plt Count 311 Neut % (Auto) 71 Lymph % (Auto) 20 [place] % (Auto) 8 Eos % (Auto) 0 Baso % (Auto) 0 Neut # (Auto) 5.0 Lymph # (Auto) 1.4 [place] # (Auto) 0.6 Eos # (Auto) 0.0 Baso # (Auto) 0.0 Immature Gran # (Auto) 0.03 H Absolute Nucleated RBC 0.00 Immature Gran % 0 Nucleated RBC % 0 Sodium 140 Potassium 4.4 Chloride 97 L Carbon Dioxide 26.9 Anion Gap 16 BUN 47 H Creatinine 8.4 H* D Estim Creat Clear Calc 20.4 L eGFR 7 L* BUN/Creatinine Ratio 6 L Glucose 154 H D Calculated Osmolality 294 Calcium 9.1 Corrected Calcium 9.2 Phosphorus 7.3 H Magnesium 2.5 Total Bilirubin 0.4 AST 31 ALT 15 Alkaline Phosphatase 99 Total Protein 7.1 Albumin 3.9 Globulin 3.2 Albumin/Globulin Ratio 1.2 Quality Measures Quality Measures VTE prophylaxis Assessment & Plan Assessment Current Active Medications: Generic Name Dose Route Start Last Admin Trade Name Freq PRN Reason Stop Dose Admin Carvedilol 3.125 mg 12/14/24 13:15 12/16/24 14:19 Carvedilol 3.125 Mg Tablet PO 01/13/25 13:14 Not Given BID KIMBERLEE Dextrose 25 ml 12/14/24 16:11 Dextrose 50%-Water Inj 50 Ml Syringe IV 01/13/25 16:10 Q15MIN PRN BG 50-70 responsive npo pt Dextrose 50 ml 12/14/24 16:11 Dextrose 50%-Water Inj 50 Ml Syringe IV 01/13/25 16:10 Q15MIN PRN BG <50 OR BG <70 & pt unresponsive Glucagon 1 mg 12/14/24 16:11 Glucagon Inj 1 Mg Vial IM Q15MIN PRN BG <70, and no IV access Heparin Sodium (Porcine) 3,300 unit 12/14/24 15:20 12/16/24 15:07 Heparin Sod Inj 1000 Unit/Ml Vial 10 Ml INDWELLCAT 12/28/24 15:19 3,300 unit PRN PRN Administration DIALYSIS Hydralazine HCl 25 mg 12/14/24 13:15 12/16/24 14:20 Hydralazine Hcl 25 Mg Tablet PO 01/13/25 13:14 Not Given QID KIMBERLEE Hydralazine HCl 10 mg 12/14/24 13:16 12/16/24 08:33 Hydralazine Inj 20 Mg/Ml Vial IV 01/13/25 13:29 10 mg Q8H PRN Administration SBP>160 Hydromorphone HCl 1 mg 12/16/24 09:29 Hydromorphone Inj 2 Mg/Ml Vial IVP 12/19/24 15:52 Q6H PRN PAIN SCALE 4-10(Mod-Sev Insulin Glargine 10 unit 12/15/24 09:00 12/16/24 08:33 Insulin Glargine (Lantus) 5 Unit/0.05 Ml (Per 5 Units) SC 01/14/25 08:59 10 unit QDAY KIMBERLEE Administration Insulin Human Lispro 0 unit 12/14/24 18:00 12/16/24 14:20 Insulin Lispro (Admelog) 1 Unit/0.01 Ml Unit SC 01/13/25 17:59 Not Given Q6HR [facility] Protocol Ondansetron HCl 4 mg 12/14/24 11:10 12/16/24 15:13 Ondansetron Inj 2 Mg/Ml Inj 2 Ml IV 01/13/25 11:09 4 mg Q6H PRN Administration NAUSEA OR VOMITING Protocol Pantoprazole Sodium 40 mg 12/15/24 23:30 12/16/24 08:33 Pantoprazole Inj 40 Mg Vial IVP 01/14/25 23:29 40 mg BID KIMBERLEE Administration Sucralfate 1 gm 12/16/24 17:00 Sucralfate Susp 1 Gm/10 Ml Udc PO 01/13/25 20:59 ACHS KIMBERLEE Plan 49 y/o M with PMHx significant for CVA with residual left-sided deficits, diabetes, hypertension, ESRD on dialysis (M/W/F) presents to facility with chief complaint of coffee-ground emesis x 1 day, admitted for upper GI bleed. #Concetta-Nicholson tear Patient presented with chief complaint of coffee-ground emesis with multiple rounds of vomiting. Associated with abdominal pain. Patient does not have melena or hematochezia. Patient has no history of hematemesis or gastric ulceration. Patient placed on Protonix drip in ED. Patient received EGD which showed Concetta-Nicholson tear, stigmata of recent bleeding, esophagitis and gastritis. Did not show active bleeding. The following morning patient had episode of nonbloody bilious emesis, followed by severe epigastric pain with associated chest pain and hypertensive crisis. Pain improved with IV Dilaudid. Troponin unremarkable. EKG unremarkable. Chest x- ray abdominal x-ray showed no signs of perforation or free air. -GI consulted, appreciate recommendations -Monitor hemoglobin, transfuse if needed -Dilaudid 1 mg IV every 6 hours as needed for severe pain -Sucralfate 1 g p.o. 4 times daily -Peptic ulcer diet with modifications of clear liquid diet -Avoid any acidic foods and carbonic beverages -Protonix BID #Hypertensive urgency Patient presented with significantly elevated blood pressure 234/124. Patient denies headache, visual changes, has had blood pressure is elevated in the past. Patient scheduled to receive dialysis today, likely to see improvement at that time. P.o. meds currently on hold. Labetalol IV given in ED. Patient blood pressure been trending down, increased due to severe pain related to Concetta-Nicholson tear. Improved with pain management and IV labetalol. -Aim for slow reduction. Blood pressure, less than 25% in 24-hour period. -Hydralazine 10 mg IV every 8 hours as needed for SBP greater than 160 -Holding oral antihypertensives to prevent rapid decrease in blood pressure #NSTEMI type II Patient has slight elevation troponin 0.088. Likely demand ischemia in the setting of hypertensive urgency and hematemesis. Patient does not complain of chest pain, EKG unremarkable. Troponin peaked at 0.108 #ESRD on dialysis (M/W/F) Patient has dialysis as stated. Has not missed any appointments, although is scheduled for 1 today. Nephrology has been consulted, follows with Dr. Lopez. -Dialysis as per patient's regular schedule -Renally dose med -Avoid nephrotoxins #Diabetes Patient has history of diabetes, controlled with outpatient insulin. A1c 5.8% as of 12/15/2024. -ISS -Lantus 10 units daily DVT prophylaxis: SC GI prophylaxis: Protonix BID Diet: Clear liquid diet advance as tolerated Lines: Peripheral IV Code status: Full code Patient's plan and care discussed with my attending, Dr. Moses Chinchilla MD PGY-2 Attending Provider Attestation/Addendum I attest that I was physically present for the evaluation, physical examination, lab and imaging review of the patient with the residents. I discussed the case with the residents and agree with the findings and plans of care as documented above. Overnight patient had another episode of severe chest and upper abdominal pain, which resolved with IV analgesics. Chest x-ray was obtained, did not show evidence of esophageal rupture. EKG also shows sinus rhythm. Vital signs are stable except for blood pressure. At bedside, patient continues to complain of abdominal pain and refused to have conversation with IM team. Found that patient has been requesting and having carbonated drinks, we will switch his diet to PUD/bland diet and stop the carbonated drinks. Also advised that patient against it. If patient continues to have these episodes we will discuss with GI regarding further investigations. Nephrology following for ESRD. Malathi Lopes MD
--- NOTE | 2024-12-16 16:15 | PC.SS ---
Update: Patient is a resident at [facility]. He was admitted for coffee ground emesis. Patient to have an upper gi bleed. 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 Patient is on dialysis every M// with Dr. Lopez. Alt medical decision maker: Renu, daughter,
[2024-12-16] MEDS: hydrALAZINE HCL 25 MG TABLET PO (16:38)
--- NOTE | 2024-12-16 16:46 | PD.IMPROG ---
Documentation for date of: 12/16/24 Subjective Subjective Interval history: Hemoglobin hematocrit 12.4 and 39.0 patient evaluated Exam Vital Signs Temp Pulse Resp BP Pulse Ox O2 Del Method O2 Flow Rate 97.7 F 102 H 16 141/88 H 97 Room Air 1 12/16/24 16:00 12/16/24 16:38 12/16/24 16:00 12/16/24 16:38 12/16/24 16:00 12/16/24 16:00 12/16/24 14:35 Objective Labs 12/16/24 05:06 12/16/24 05:06 Labs: Laboratory Results - last 24 hr 12/16/24 05:06 WBC 7.0 RBC 4.30 L Hgb 12.4 L Hct 39.0 L MCV 91 MCH 28.8 MCHC 31.8 RDW Std Deviation 49.7 H Plt Count 311 Neut % (Auto) 71 Lymph % (Auto) 20 [place] % (Auto) 8 Eos % (Auto) 0 Baso % (Auto) 0 Neut # (Auto) 5.0 Lymph # (Auto) 1.4 [place] # (Auto) 0.6 Eos # (Auto) 0.0 Baso # (Auto) 0.0 Immature Gran # (Auto) 0.03 H Absolute Nucleated RBC 0.00 Immature Gran % 0 Nucleated RBC % 0 Sodium 140 Potassium 4.4 Chloride 97 L Carbon Dioxide 26.9 Anion Gap 16 BUN 47 H Creatinine 8.4 H* D Estim Creat Clear Calc 20.4 L eGFR 7 L* BUN/Creatinine Ratio 6 L Glucose 154 H D Calculated Osmolality 294 Calcium 9.1 Corrected Calcium 9.2 Phosphorus 7.3 H Magnesium 2.5 Total Bilirubin 0.4 AST 31 ALT 15 Alkaline Phosphatase 99 Total Protein 7.1 Albumin 3.9 Globulin 3.2 Albumin/Globulin Ratio 1.2 Impressions Impression: Concetta-Nicholson tear Diffuse gastritis Esophageal erosions Continue current management Assessment & Plan A&P Narrative # Coffee-ground hematemesis etiology uncertain Plan Agree with the IV Protonix as well as IV octreotide Consent obtained in Kiswahili for fiberoptic esophagogastroduodenoscopy with possible therapeutic intervention under intravenous moderate sedation Other medical problems include # End-stage renal disease on hemodialysis MWF # CVA with left-sided motor weakness residual # IDDM # Essential hypertension Thank you very much for the opportunity to participate in the care of this patient Time Spent With Patient Time: Total time spent is greater than 50% in coordination of care (as documented) at patient's floor/unit and/or counseling patient:
[2024-12-16] MEDS: HYDROmorphone INJ 2 MG/ML VIAL 1 MG IVP (21:17)
--- NOTE | 2024-12-16 21:29 | PC.NURSE ---
PO meds held at this time pt has nausea with one episode of emesis 50ml yellow, Zofran given
--- NOTE | 2024-12-16 23:04 | PC.NURSE ---
Pt c/o nausea zofran given earlier, states that he gets dizzy and nauseous when turning side to side, contacted Dr. Robert MD to look into chart and input orders
--- NOTE | 2024-12-16 23:50 | PC.NURSE ---
Attempted to give PO Carafate pt declined stated cannot take, Reglan given per MD order
[2024-12-17] VITALS (13 sets, daily range): BP systolic 94–179; BP diastolic 56–99; PULSE 80–95; RESP 15–20; TEMP 36.2–36.5; O2SAT 96–99
[2024-12-17] MEDS: ONDANSETRON INJ 2 MG/ML INJ 2 ML 4 MG IV (03:50)
[2024-12-17] MEDS: HYDROmorphone INJ 2 MG/ML VIAL 1 MG IVP (03:50)
[2024-12-17] MEDS: hydrALAZINE HCL 25 MG TABLET PO ×3 (05:09→18:23)
[2024-12-17] MEDS: SUCRALFATE SUSP 1 GM/10 ML UDC PO ×4 (05:10→20:03)
[2024-12-17] MEDS: INSULIN LISPRO (AdmeLOG) 1 UNIT/0.01 ML UNIT SC ×2 (05:14→13:06)
[2024-12-17 05:58] LABS: Basophils # (Auto) 0.1 Thou/mm3 (0.0-0.2); Basophils % (Auto) 1 % (0-2.5); Eosinophils # (Auto) 0.1 Thou/mm3 (0.0-0.5); Eosinophils % (Auto) 1 % (0-10); Hematocrit 37.6 % (41.0-53.0); Hemoglobin 12.6 g/dL (13.5-16.0); Immature Granulocytes % (Auto) 1 % (0-0); Immature Granulocytes Auto 0.04 Thou/mm3 (0.00-0.00); Lymphocytes # (Auto) 2.1 Thou/mm3 (1.0-4.8); Lymphocytes % (Auto) 26 % (10-50); Mean Corpuscular HGB Conc 33.5 g/dl (31.0-37.0); Mean Corpuscular Hemoglobin 30.1 pg (25.0-35.0); Mean Corpuscular Volume 90 fL (80-100); Monocytes # (Auto) 0.7 Thou/mm3 (0.0-0.8); Monocytes % (Auto) 9 % (0-12); Neutrophils # (Auto) 5.1 Thou/mm3 (1.8-7.7); Neutrophils % (Auto) 63 % (37-80); Nucleated Red Blood Cell % 0 /100 WBC (0); Platelet Count 448 Thou/mm3 (140-440); RDW Standard Deviation 50.1 fL (35.1-43.9); Red Blood Count 4.18 Miln/mm3 (4.50-5.90); White Blood Count 8.1 Thou/mm3 (3.8-10.6)
[2024-12-17 06:47] LABS: Alanine Aminotransferase 13 U/L (10-49); Albumin, Serum 4.1 gm/dL (3.5-5.0); Albumin/Globulin Ratio 1.3 (1.2-2.2); Alkaline Phosphatase 98 U/L (46-116); Anion Gap 15 (7-16); Aspartate Amino Transferase 14 U/L (0-34); BUN/Creatinine Ratio 5 Ratio (12-20); Bilirubin,Total 0.4 mg/dL (0.3-1.2); Blood Urea Nitrogen 40 mg/dL (9-23); Calcium 9.2 mg/dL (8.3-10.6); Calcium (Corrected) 9.2 mg/dL (8.5-10.1); Carbon Dioxide 26.3 mMol/L (20.0-31.0); Chloride 94 mMol/L (98-107); Creatinine (Component) 7.8 mg/dL (0.6-1.3); Estimated Creatinine Clearance 13.6 mL/min (>60); Globulin 3.1 gm/dL (2.3-3.5); Glucose 137 mg/dL (74-106); Magnesium 2.2 mg/dL (1.6-2.6); Osmolality,Calculated 281 (275-295); Phosphorous 7.2 mg/dL (2.4-5.1); Sodium 135 mMol/L (136-145); Total Protein 7.2 gm/dL (5.7-8.2); eGFR 8 See Note
--- NOTE | 2024-12-17 07:48 | EKG_ITS ---
[facility] Test Date: 2024-12-17 Pat Name: AGUILA YOO [facility] Director Of Institutional Sales: EULALIO : 1975 Requested By: Shiloh Archibald Order Number: [id number] Reading MD: Shiloh Archibald Measurements Intervals [place] Rate: 83 P: 38 [place]: 148 QRS: 24 QRSD: 91 T: 42 QT: 398 QTc: 470 Interpretive Statements SINUS RHYTHM POSSIBLE LEFT ATRIAL ENLARGEMENT Compared to ECG 12/16/2024 05:07:11 No significant changes /store/S0/[id number]/ecg/[id number].pdf
[2024-12-17] MEDS: PANTOPRAZOLE INJ 40 MG VIAL IVP ×2 (09:55→20:03)
[2024-12-17] MEDS: carVEDILOL 3.125 MG TABLET PO (09:55)
[2024-12-17] MEDS: INSULIN GLARGINE (Lantus) 5 UNIT/0.05 ML (PER 5 UNITS) 10 UNIT SC (09:56)
--- NOTE | 2024-12-17 12:33 | ESPR_ITS ---
Documentation for date of: 12/17/24 Subjective Subjective Interval history: Overnight, patient was very nauseous and received both metoclopramide and Zofran. EKG today showed a QTc of 470. Pt seen and examined at bedside. Patient denies any abdominal pain but continues to have dizziness and nausea. Gave her x 1 of promethazine which did help with the symptoms. Patient also able to tolerate diet, will advance to peptic ulcer solid diet. Will discontinue patient's IV pain meds and continue with [place] p.o. as needed. Will also add as needed Maalox for patient's indigestion. Exam Vital Signs Temp Pulse Resp BP Pulse Ox O2 Del Method O2 Flow Rate 97.3 F 83 20 179/98 H 98 Room Air 1 12/17/24 08:00 12/17/24 09:55 12/17/24 08:00 12/17/24 09:55 12/17/24 08:00 12/17/24 08:00 12/16/24 14:35 Narrative Exam General Appearance: Pt in mild acute distress laying in bed. Obese. HEENT: NC/AT, no scleral icterus, no conjunctival pallor, MMM Lungs: CTAB, no wheezes or crackles appreciated CVS: RRR, S1/S2 heard, no murmurs or rubs appreciated, AV fistula on right upper extremity with good thrill ABD: Mild epigastric tenderness, nondistended, bowel sounds heard EXT: no deformity/edema/lesions/cyanosis/clubbing, radial pulses 2+ BL, DP pulses 2 + BL SKIN: Skin exam normal without any rashes. Neuro: A&O x 3. No gross neurological deficits. Motor and sensory grossly intact in B/L UL and LL except for left upper extremity weakness, unable to fully open hand. Psych: Appropriate mood and affect Objective Labs 12/17/24 05:23 12/17/24 05:23 Labs: Laboratory Results - last 24 hr 12/17/24 05:23 WBC 8.1 RBC 4.18 L Hgb 12.6 L Hct 37.6 L MCV 90 MCH 30.1 MCHC 33.5 RDW Std Deviation 50.1 H Plt Count 448 H D Neut % (Auto) 63 Lymph % (Auto) 26 [place] % (Auto) 9 Eos % (Auto) 1 Baso % (Auto) 1 Neut # (Auto) 5.1 Lymph # (Auto) 2.1 [place] # (Auto) 0.7 Eos # (Auto) 0.1 Baso # (Auto) 0.1 Immature Gran # (Auto) 0.04 H Absolute Nucleated RBC 0.00 Immature Gran % 1 H Nucleated RBC % 0 Sodium 135 L Potassium 4.0 Chloride 94 L Carbon Dioxide 26.3 Anion Gap 15 BUN 40 H Creatinine 7.8 H* D Estim Creat Clear Calc 13.6 L eGFR 8 L* BUN/Creatinine Ratio 5 L Glucose 137 H Calculated Osmolality 281 Calcium 9.2 Corrected Calcium 9.2 Phosphorus 7.2 H Magnesium 2.2 Total Bilirubin 0.4 AST 14 ALT 13 Alkaline Phosphatase 98 Total Protein 7.2 Albumin 4.1 Globulin 3.1 Albumin/Globulin Ratio 1.3 Quality Measures Quality Measures VTE prophylaxis Assessment & Plan Assessment Current Active Medications: Generic Name Dose Route Start Last Admin Trade Name Freq PRN Reason Stop Dose Admin Hydrocodone Bitart/Acetaminophen 1 tab 12/17/24 09:14 Hydrocodone/Apap 5/325 Tablet PO 12/22/24 09:13 Q6HR PRN PAIN SCALE 4-10(Mod-Sev Al Hydrox/Mg Hydrox/Simethicone 30 ml 12/17/24 09:14 Mg Hyd/Al Hyd/[place] (Maalox Reg) Susp 30 Ml Udc PO 01/16/25 09:13 QID PRN UPSET STOMACH/INDIGESTION Carvedilol 3.125 mg 12/14/24 13:15 12/17/24 09:55 Carvedilol 3.125 Mg Tablet PO 01/13/25 13:14 3.125 mg BID KIMBERLEE Administration Dextrose 25 ml 12/14/24 16:11 Dextrose 50%-Water Inj 50 Ml Syringe IV 01/13/25 16:10 Q15MIN PRN BG 50-70 responsive npo pt Dextrose 50 ml 12/14/24 16:11 Dextrose 50%-Water Inj 50 Ml Syringe IV 01/13/25 16:10 Q15MIN PRN BG <50 OR BG <70 & pt unresponsive Glucagon 1 mg 12/14/24 16:11 Glucagon Inj 1 Mg Vial IM Q15MIN PRN BG <70, and no IV access Heparin Sodium (Porcine) 3,300 unit 12/14/24 15:20 12/16/24 15:07 Heparin Sod Inj 1000 Unit/Ml Vial 10 Ml INDWELLCAT 12/28/24 15:19 3,300 unit PRN PRN Administration DIALYSIS Hydralazine HCl 25 mg 12/14/24 13:15 12/17/24 05:09 Hydralazine Hcl 25 Mg Tablet PO 01/13/25 13:14 25 mg QID KIMBERLEE Administration Hydralazine HCl 10 mg 12/14/24 13:16 12/16/24 23:38 Hydralazine Inj 20 Mg/Ml Vial IV 01/13/25 13:29 10 mg Q8H PRN Administration SBP>160 Insulin Glargine 10 unit 12/15/24 09:00 12/17/24 09:56 Insulin Glargine (Lantus) 5 Unit/0.05 Ml (Per 5 Units) SC 01/14/25 08:59 10 unit QDAY KIMBERLEE Administration Insulin Human Lispro 0 unit 12/14/24 18:00 12/17/24 05:14 Insulin Lispro (Admelog) 1 Unit/0.01 Ml Unit SC 01/13/25 17:59 2 unit Q6HR KIMBERLEE Administration Protocol Ondansetron HCl 4 mg 12/14/24 11:10 12/17/24 03:50 Ondansetron Inj 2 Mg/Ml Inj 2 Ml IV 01/13/25 11:09 4 mg Q6H PRN Administration NAUSEA OR VOMITING Protocol Pantoprazole Sodium 40 mg 12/15/24 23:30 12/17/24 09:55 Pantoprazole Inj 40 Mg Vial IVP 01/14/25 23:29 40 mg BID KIMBERLEE Administration Sucralfate 1 gm 12/16/24 17:00 12/17/24 05:10 Sucralfate Susp 1 Gm/10 Ml Udc PO 01/13/25 20:59 1 gm ACHS KIMBERLEE Administration Plan 49 y/o M with PMHx significant for CVA with residual left-sided deficits, diabetes, hypertension, ESRD on dialysis (M/W/F) presents to facility with chief complaint of coffee-ground emesis x 1 day, admitted for upper GI bleed. #Concetta-Nicholson tear Patient presented with chief complaint of coffee-ground emesis with multiple rounds of vomiting. Associated with abdominal pain. Patient does not have melena or hematochezia. Patient has no history of hematemesis or gastric ulceration. Patient placed on Protonix drip in ED. Patient received EGD which showed Concetta-Nicholson tear, stigmata of recent bleeding, esophagitis and gastritis. Did not show active bleeding. The following morning patient had episode of nonbloody bilious emesis, followed by severe epigastric pain with associated chest pain and hypertensive crisis. Pain improved with IV Dilaudid. Troponin unremarkable. EKG unremarkable. Chest x- ray abdominal x-ray showed no signs of perforation or free air. -GI consulted, appreciate recommendations -Monitor hemoglobin, transfuse if needed -Discontinued Dilaudid -Sucralfate 1 g p.o. 4 times daily -Peptic ulcer solid diet started -Avoid any acidic foods and carbonic beverages -Protonix BID -Maalox as needed -Promethazine x 1 given #QTc prolongation Patient's last EKG showed a QTc of 470. Normal QTc for males is at least around 440. -Continue to monitor on telemetry for any changes in rhythm -Avoid QTc prolonging agents, despite patient's underlying nausea which does improve with antiemetics -If patient's QTc prolongs even more on repeat EKG, will try scopolamine patch for nausea. #Hypertensive urgency Patient presented with significantly elevated blood pressure 234/124. Patient denies headache, visual changes, has had blood pressure is elevated in the past. Patient scheduled to receive dialysis today, likely to see improvement at that time. P.o. meds currently on hold. Labetalol IV given in ED. Patient blood pressure been trending down, increased due to severe pain related to Concetta-Nicholson tear. Improved with pain management and IV labetalol. -Aim for slow reduction. Blood pressure, less than 25% in 24-hour period. -Hydralazine 10 mg IV every 8 hours as needed for SBP greater than 160 -Holding oral antihypertensives to prevent rapid decrease in blood pressure #NSTEMI type II Patient has slight elevation troponin 0.088. Likely demand ischemia in the setting of hypertensive urgency and hematemesis. Patient does not complain of chest pain, EKG unremarkable. Troponin peaked at 0.108 #ESRD on dialysis (M/W/F) Patient has dialysis as stated. Has not missed any appointments, although is scheduled for 1 today. Nephrology has been consulted, follows with Dr. Lopez. -Dialysis as per patient's regular schedule -Renally dose med -Avoid nephrotoxins #Diabetes Patient has history of diabetes, controlled with outpatient insulin. A1c 5.8% as of 12/15/2024. -ISS -Lantus 10 units daily DVT prophylaxis: SC GI prophylaxis: Protonix BID Diet: Clear liquid diet advance as tolerated Lines: Peripheral IV Code status: Full code Patient's plan and care discussed with my attending, Dr. Moses Chinchilla MD PGY-2 Attending Provider Attestation/Addendum I attest that I was physically present for the evaluation, physical examination, lab and imaging review of the patient with the residents. I discussed the case with the residents and agree with the findings and plans of care as documented above. At bedside today, patient stated that his abdominal/chest pain has improved. But he complained of nausea and vomiting. Patient also had episode of dizziness in the afternoon, received 1 dose of promethazine with improvement in symptoms. We will discontinue IV Dilaudid and switch to oral [place] along with as needed Maalox for epigastric pain. If patient's nausea/vomiting remains controlled tomorrow we will plan for discharge. Malathi Lopes MD
[2024-12-17] MEDS: PROMETHAZINE INJ 25 MG in SODIUM CHLORIDE 0.9% 50 ML IV (13:02)
--- NOTE | 2024-12-17 14:04 | ESPR_ITS ---
Documentation for date of: 12/17/24 Subjective Subjective Interval history: Mr. Go is a 49-year-old male with significant past medical history of hypertension, diabetes mellitus, CVA with residual left-sided deficits, ESRD on HD [M/W/F] presented to the hospital with chief complaint of hematemesis since 1day. Patient was apparently normal till last night, later developed multiple episodes of nausea with vomiting of blood. Patient endorsed that he is having diffuse abdominal pain along with vomitings. Denies heartburn, NSAIDs, alcohol intake, similar history, fever, shortness of breath, abdominal distention, pedal edema ED Course: -Initial vitals were blood pressure 234/124 mmHg, pulse rate 97 bpm, respiratory rate 17/min, SpO2 94% with room air -Labs significant for WBC 10.1, Hb 11.6, platelets 314, INR 1, sodium 141, potassium 4.5, chloride 98, bicarb 28.1, BUN 51, creatinine 7.5, glucose 193, procalcitonin 0.13. -CT abdomen/pelvis showed changes consistent with chronic kidney disease. Chest x-ray did not show any infiltrates. -In the ED, patient was given octreotide, pantoprazole and labetalol -Patient was admitted for upper GI bleed Patient was complaining of significant nausea-NG tube was placed. Nephrology was consulted as patient is having ESRD 12/15/2024 Patient was seen and examined bedside. No acute overnight events. Underwent EGD yesterday and found esophagitis and severe erythematous mucosa in gastric antrum. Patient is still having elevated blood pressures. Labs showed BUN 25, creatinine 6.1 Will continue dialysis sessions as per his routine schedule 12/16/2024 Patient was seen and examined at bedside Patient continues to have high blood pressures. Still complaining of nausea and vomitings without blood Patient will be scheduled for his routine dialysis session today Recommended to monitor blood pressures and treat accordingly. 12/17/2024 Patient was seen and examined at bedside. Still complaining of nausea and vomiting. Vitals are stable and blood pressures are getting under control. Will continue dialysis as per his routine schedule Exam Vital Signs Temp Pulse Resp BP Pulse Ox O2 Del Method O2 Flow Rate 97.7 F 84 19 158/99 H 99 Nasal Cannula 1 12/17/24 12:00 12/17/24 13:02 12/17/24 12:00 12/17/24 13:02 12/17/24 12:00 12/17/24 12:00 12/17/24 12:00 Narrative Exam General: Awake. HEENT: Normocephalic, atraumatic, mucous membranes moist. Heart: Regular rate and rhythm, no murmurs. Lungs: Clear to auscultation with no wheezing or crackles. Abdomen: Soft, nondistended, nontender, positive bowel sounds. ?No guarding or rebound tenderness. Neurologic: Alert and oriented x3, no gross neurological deficit, and patient able to move all 4 extremities. Extremities: No edema. AV fistula surgery on right hand Skin: No rash or ecchymoses. Objective Labs 12/17/24 05:23 12/17/24 05:23 Labs: Laboratory Results - last 24 hr 12/17/24 05:23 WBC 8.1 RBC 4.18 L Hgb 12.6 L Hct 37.6 L MCV 90 MCH 30.1 MCHC 33.5 RDW Std Deviation 50.1 H Plt Count 448 H D Neut % (Auto) 63 Lymph % (Auto) 26 [place] % (Auto) 9 Eos % (Auto) 1 Baso % (Auto) 1 Neut # (Auto) 5.1 Lymph # (Auto) 2.1 [place] # (Auto) 0.7 Eos # (Auto) 0.1 Baso # (Auto) 0.1 Immature Gran # (Auto) 0.04 H Absolute Nucleated RBC 0.00 Immature Gran % 1 H Nucleated RBC % 0 Sodium 135 L Potassium 4.0 Chloride 94 L Carbon Dioxide 26.3 Anion Gap 15 BUN 40 H Creatinine 7.8 H* D Estim Creat Clear Calc 13.6 L eGFR 8 L* BUN/Creatinine Ratio 5 L Glucose 137 H Calculated Osmolality 281 Calcium 9.2 Corrected Calcium 9.2 Phosphorus 7.2 H Magnesium 2.2 Total Bilirubin 0.4 AST 14 ALT 13 Alkaline Phosphatase 98 Total Protein 7.2 Albumin 4.1 Globulin 3.1 Albumin/Globulin Ratio 1.3 Quality Measures Quality Measures VTE prophylaxis Assessment & Plan Assessment Current Active Medications: Generic Name Dose Route Start Last Admin Trade Name Freq PRN Reason Stop Dose Admin Hydrocodone Bitart/Acetaminophen 1 tab 12/17/24 09:14 Hydrocodone/Apap 5/325 Tablet PO 12/22/24 09:13 Q6HR PRN PAIN SCALE 4-10(Mod-Sev Al Hydrox/Mg Hydrox/Simethicone 30 ml 12/17/24 09:14 Mg Hyd/Al Hyd/[place] (Maalox Reg) Susp 30 Ml Udc PO 01/16/25 09:13 QID PRN UPSET STOMACH/INDIGESTION Carvedilol 3.125 mg 12/14/24 13:15 12/17/24 09:55 Carvedilol 3.125 Mg Tablet PO 01/13/25 13:14 3.125 mg BID KIMBERLEE Administration Dextrose 25 ml 12/14/24 16:11 Dextrose 50%-Water Inj 50 Ml Syringe IV 01/13/25 16:10 Q15MIN PRN BG 50-70 responsive npo pt Dextrose 50 ml 12/14/24 16:11 Dextrose 50%-Water Inj 50 Ml Syringe IV 01/13/25 16:10 Q15MIN PRN BG <50 OR BG <70 & pt unresponsive Glucagon 1 mg 12/14/24 16:11 Glucagon Inj 1 Mg Vial IM Q15MIN PRN BG <70, and no IV access Heparin Sodium (Porcine) 3,300 unit 12/14/24 15:20 12/16/24 15:07 Heparin Sod Inj 1000 Unit/Ml Vial 10 Ml INDWELLCAT 12/28/24 15:19 3,300 unit PRN PRN Administration DIALYSIS Hydralazine HCl 25 mg 12/14/24 13:15 12/17/24 13:02 Hydralazine Hcl 25 Mg Tablet PO 01/13/25 13:14 25 mg QID KIMBERLEE Administration Hydralazine HCl 10 mg 12/14/24 13:16 12/16/24 23:38 Hydralazine Inj 20 Mg/Ml Vial IV 01/13/25 13:29 10 mg Q8H PRN Administration SBP>160 Insulin Glargine 10 unit 12/15/24 09:00 12/17/24 09:56 Insulin Glargine (Lantus) 5 Unit/0.05 Ml (Per 5 Units) SC 01/14/25 08:59 10 unit QDAY KIMBERLEE Administration Insulin Human Lispro 0 unit 12/14/24 18:00 12/17/24 13:06 Insulin Lispro (Admelog) 1 Unit/0.01 Ml Unit SC 01/13/25 17:59 2 unit Q6HR KIMBERLEE Administration Protocol Ondansetron HCl 4 mg 12/14/24 11:10 12/17/24 03:50 Ondansetron Inj 2 Mg/Ml Inj 2 Ml IV 01/13/25 11:09 4 mg Q6H PRN Administration NAUSEA OR VOMITING Protocol Pantoprazole Sodium 40 mg 12/15/24 23:30 12/17/24 09:55 Pantoprazole Inj 40 Mg Vial IVP 01/14/25 23:29 40 mg BID KIMBERLEE Administration Sucralfate 1 gm 12/16/24 17:00 12/17/24 13:02 Sucralfate Susp 1 Gm/10 Ml Udc PO 01/13/25 20:59 1 gm ACHS KIMBERLEE Administration Plan [id number] male with significant past medical history of hypertension, diabetes mellitus, CVA with residual left-sided deficits, ESRD on HD [M/W/F] presented to the hospital with chief complaint of hematemesis since 1 day. # ESRD on HD [M/W/F] Likely due to diabetes mellitus, hypertension -Patient was started on dialysis since 2 months -Per patient, patient is able to produce only minimal amount of urine -Last dialysis session was on 12/12/2024 before admission -Patient was admitted for upper GI bleed Plan -HD was done on 12/14/2024, 12/17/2024 -Will continue dialysis as per his routine schedule during the hospital visit -Avoid nephrotoxic medication and renally dose medications # Hypertensive urgency, resolved -Blood pressure at the time of admission is 234/124 mmHg -Patient missed dialysis session that should be done in the morning on the day of admission -Patient received 2 doses of labetalol, 1 dose of hydralazine 10 Mg in the ED at the time of admission Plan -Continue carvedilol, hydralazine and titrate the doses of medications according to blood pressures -Recommended to monitor blood pressure and resume his home medications #Upper GI bleed #NSTEMI type I (less likely) versus type II #Diabetes -Rest of the medical conditions to be treated as per primary team Thank you for allowing to involved in the care of the patient Patient plan of care was discussed with the attending physician, Dr.Vemuri Nitin Dixon, PGY1 Attending Provider Attestation/Addendum Patient seen and examined with resident physician Dr. Taveras. Note reviewed, agree with findings and recommendations. Patient still having some nausea. Spoke to primary team-patient has Concetta- Nicholson tear. On PPIs. Next dialysis scheduled for Thursday
--- NOTE | 2024-12-17 14:43 | PC.SS ---
Rounding: Pain management
[2024-12-17] MEDS: MECLIZINE HCL 25 MG TABLET PO (18:23)
--- NOTE | 2024-12-17 19:51 | ESPR_ITS ---
Documentation for date of: 12/17/24 Subjective Subjective Interval history: Hemoglobin hematocrit 12.6 and 37.6 Some chest discomfort but no other pain Exam Vital Signs Temp Pulse Resp BP Pulse Ox O2 Del Method O2 Flow Rate 97.2 F 88 15 134/76 H 98 Nasal Cannula 1 12/17/24 16:00 12/17/24 18:23 12/17/24 16:00 12/17/24 18:23 12/17/24 16:00 12/17/24 16:00 12/17/24 16:00 Objective Labs 12/17/24 05:23 12/17/24 05:23 Labs: Laboratory Results - last 24 hr 12/17/24 05:23 WBC 8.1 RBC 4.18 L Hgb 12.6 L Hct 37.6 L MCV 90 MCH 30.1 MCHC 33.5 RDW Std Deviation 50.1 H Plt Count 448 H D Neut % (Auto) 63 Lymph % (Auto) 26 [place] % (Auto) 9 Eos % (Auto) 1 Baso % (Auto) 1 Neut # (Auto) 5.1 Lymph # (Auto) 2.1 [place] # (Auto) 0.7 Eos # (Auto) 0.1 Baso # (Auto) 0.1 Immature Gran # (Auto) 0.04 H Absolute Nucleated RBC 0.00 Immature Gran % 1 H Nucleated RBC % 0 Sodium 135 L Potassium 4.0 Chloride 94 L Carbon Dioxide 26.3 Anion Gap 15 BUN 40 H Creatinine 7.8 H* D Estim Creat Clear Calc 13.6 L eGFR 8 L* BUN/Creatinine Ratio 5 L Glucose 137 H Calculated Osmolality 281 Calcium 9.2 Corrected Calcium 9.2 Phosphorus 7.2 H Magnesium 2.2 Total Bilirubin 0.4 AST 14 ALT 13 Alkaline Phosphatase 98 Total Protein 7.2 Albumin 4.1 Globulin 3.1 Albumin/Globulin Ratio 1.3 Impressions Impression: Concetta-Nicholson tear Gastritis Esophagitis Assessment & Plan A&P Narrative # Coffee-ground hematemesis etiology uncertain Plan Agree with the IV Protonix as well as IV octreotide Consent obtained in Mauritian for fiberoptic esophagogastroduodenoscopy with possible therapeutic intervention under intravenous moderate sedation Other medical problems include # End-stage renal disease on hemodialysis MWF # CVA with left-sided motor weakness residual # IDDM # Essential hypertension Thank you very much for the opportunity to participate in the care of this patient Time Spent With Patient Time: Total time spent is greater than 50% in coordination of care (as documented) at patient's floor/unit and/or counseling patient:
[2024-12-18] VITALS (11 sets, daily range): BP systolic 96–157; BP diastolic 59–97; PULSE 76–81; RESP 18–21; TEMP 36.1–36.8; O2SAT 96–98; BMI 12.0
[2024-12-18 05:45] LABS: Basophils % (Auto) 1 % (0-2.5); Eosinophils # (Auto) 0.1 Thou/mm3 (0.0-0.5); Eosinophils % (Auto) 1 % (0-10); Hemoglobin 11.8 g/dL (13.5-16.0); Immature Granulocytes % (Auto) 1 % (0-0); Immature Granulocytes Auto 0.03 Thou/mm3 (0.00-0.00); Lymphocytes # (Auto) 2.9 Thou/mm3 (1.0-4.8); Lymphocytes % (Auto) 44 % (10-50); Mean Corpuscular HGB Conc 32.8 g/dl (31.0-37.0); Mean Corpuscular Hemoglobin 29.1 pg (25.0-35.0); Mean Corpuscular Volume 89 fL (80-100); Monocytes # (Auto) 0.7 Thou/mm3 (0.0-0.8); Monocytes % (Auto) 11 % (0-12); Neutrophils # (Auto) 2.9 Thou/mm3 (1.8-7.7); Neutrophils % (Auto) 43 % (37-80); Nucleated Red Blood Cell % 0 /100 WBC (0); Platelet Count 214 Thou/mm3 (140-440); RDW Standard Deviation 47.4 fL (35.1-43.9); Red Blood Count 4.06 Miln/mm3 (4.50-5.90); White Blood Count 6.6 Thou/mm3 (3.8-10.6)
[2024-12-18 06:29] LABS: Alanine Aminotransferase 12 U/L (10-49); Albumin, Serum 3.6 gm/dL (3.5-5.0); Albumin/Globulin Ratio 1.3 (1.2-2.2); Alkaline Phosphatase 87 U/L (46-116); Anion Gap 14 (7-16); Aspartate Amino Transferase 11 U/L (0-34); BUN/Creatinine Ratio 5 Ratio (12-20); Bilirubin,Total 0.3 mg/dL (0.3-1.2); Blood Urea Nitrogen 54 mg/dL (9-23); Calcium 8.5 mg/dL (8.3-10.6); Calcium (Corrected) 8.8 mg/dL (8.5-10.1); Carbon Dioxide 24.9 mMol/L (20.0-31.0); Chloride 93 mMol/L (98-107); Estimated Creatinine Clearance 10.5 mL/min (>60); Globulin 2.7 gm/dL (2.3-3.5); Glucose 123 mg/dL (74-106); Magnesium 2.4 mg/dL (1.6-2.6); Osmolality,Calculated 280 (275-295); Phosphorous 7.4 mg/dL (2.4-5.1); Potassium 3.7 mMol/L (3.4-5.1); Sodium 132 mMol/L (136-145); Total Protein 6.3 gm/dL (5.7-8.2); eGFR 6 See Note
[2024-12-18 06:30] LABS: Creatinine (Component) 10.1 mg/dL (0.6-1.3)
[2024-12-18] MEDS: PANTOPRAZOLE INJ 40 MG VIAL IVP (09:26)
[2024-12-18] MEDS: SUCRALFATE SUSP 1 GM/10 ML UDC PO ×3 (09:26→17:37)
[2024-12-18] MEDS: carVEDILOL 3.125 MG TABLET PO (09:26)
[2024-12-18] MEDS: INSULIN GLARGINE (Lantus) 5 UNIT/0.05 ML (PER 5 UNITS) 10 UNIT SC (09:27)
--- NOTE | 2024-12-18 09:39 | PC.SS ---
Follow up note: SS spoke to physician and patient [facility]. SS updated facility. They are willing to take patient back today. Packet set up. SS attempted to contact all family members with no response. SS will update patient as he is alert/oriented.
--- NOTE | 2024-12-18 11:35 | PC.SS ---
SS spoke to patient to update on d/c orders. Patient agreeable. SS set up patient with gurney transport through [employer] for 3p.m. Reservation# [id number]
--- NOTE | 2024-12-18 11:58 | PD.NEPHPROG ---
Documentation for date of: 12/18/24 Subjective Subjective Interval history: Mr. Go is a 49-year-old male with significant past medical history of hypertension, diabetes mellitus, CVA with residual left-sided deficits, ESRD on HD [M/W/F] presented to the hospital with chief complaint of hematemesis since 1day. Patient was apparently normal till last night, later developed multiple episodes of nausea with vomiting of blood. Patient endorsed that he is having diffuse abdominal pain along with vomitings. Denies heartburn, NSAIDs, alcohol intake, similar history, fever, shortness of breath, abdominal distention, pedal edema ED Course: -Initial vitals were blood pressure 234/124 mmHg, pulse rate 97 bpm, respiratory rate 17/min, SpO2 94% with room air -Labs significant for WBC 10.1, Hb 11.6, platelets 314, INR 1, sodium 141, potassium 4.5, chloride 98, bicarb 28.1, BUN 51, creatinine 7.5, glucose 193, procalcitonin 0.13. -CT abdomen/pelvis showed changes consistent with chronic kidney disease. Chest x-ray did not show any infiltrates. -In the ED, patient was given octreotide, pantoprazole and labetalol -Patient was admitted for upper GI bleed Patient was complaining of significant nausea-NG tube was placed. Nephrology was consulted as patient is having ESRD 12/15/2024 Patient was seen and examined bedside. No acute overnight events. Underwent EGD yesterday and found esophagitis and severe erythematous mucosa in gastric antrum. Patient is still having elevated blood pressures. Labs showed BUN 25, creatinine 6.1 Will continue dialysis sessions as per his routine schedule 12/16/2024 Patient was seen and examined at bedside Patient continues to have high blood pressures. Still complaining of nausea and vomitings without blood Patient will be scheduled for his routine dialysis session today Recommended to monitor blood pressures and treat accordingly. 12/18/2024 Patient was seen and examined at bedside. Still complaining of nausea and vomiting. Endoscopy showed Concetta-Nicholson tear. Vitals are stable and blood pressures is still elevated. Next dialysis scheduled for Thursday. Currently on PPI. Labs/medications reviewed Review of Systems Review of Systems Narrative Review of Systems: CONSTITUTIONAL: Patient denies any fever, chills. HEENT: Denies any visual disturbances or hearing problems. CARDIOVASCULAR: Patient denies any chest pain, shortness of breath, swelling in the lower extremities. PULMONARY: Patient denies any shortness of breath, cough. GASTROINTESTINAL: Patient denies any abdominal pain, constipation. c/o nausea, vomiting, GENITOURINARY: Patient denies any urinary symptoms of burning or frequency or hematuria, denies any form in the urine. SKIN: Denies any rash. ++ Right arm fistula, catheter MUSCULOSKELETAL: Gait imbalance from the stroke. NEUROLOGICAL: History of stroke Exam Vital Signs Temp Pulse Resp BP Pulse Ox O2 Del Method O2 Flow Rate 36.4 C 79 18 155/95 H 96 Nasal Cannula 1 12/18/24 08:00 12/18/24 09:26 12/18/24 08:00 12/18/24 09:26 12/18/24 08:00 12/18/24 08:00 12/18/24 08:00 Narrative Exam GENERAL APPEARANCE: Patient seems to be comfortable, adequately hydrated and nourished. HEENT: EOMI, PERRLA NECK: Neck supple, no JVD or bruit CARDIOVASCULAR: Heart regular, no murmurs LUNGS/CHEST: Chest clear to auscultation. No rales, rhonchi, wheezing ABDOMEN: Soft, nontender, nondistended. No masses. Normal bowel sounds. EXTREMITIES: No edema, clubbing or cyanosis. SKIN: Skin exam normal without any rashes . Right arm AV fistula.+ Catheter MUSCULOSKELETAL: In bed NEUROLOGICAL : + CVA with hemiparesis Objective Labs 12/18/24 05:13 12/18/24 05:13 Labs: Laboratory Results - last 24 hr 12/18/24 05:13 WBC 6.6 RBC 4.06 L Hgb 11.8 L Hct 36.0 L MCV 89 MCH 29.1 MCHC 32.8 RDW Std Deviation 47.4 H Plt Count 214 D Neut % (Auto) 43 Lymph % (Auto) 44 [place] % (Auto) 11 Eos % (Auto) 1 Baso % (Auto) 1 Neut # (Auto) 2.9 Lymph # (Auto) 2.9 [place] # (Auto) 0.7 Eos # (Auto) 0.1 Baso # (Auto) 0.0 Immature Gran # (Auto) 0.03 H Absolute Nucleated RBC 0.00 Immature Gran % 1 H Nucleated RBC % 0 Sodium 132 L Potassium 3.7 Chloride 93 L Carbon Dioxide 24.9 Anion Gap 14 BUN 54 H Creatinine 10.1 H* D Estim Creat Clear Calc 10.5 L eGFR 6 L* BUN/Creatinine Ratio 5 L Glucose 123 H Calculated Osmolality 280 Calcium 8.5 Corrected Calcium 8.8 Phosphorus 7.4 H Magnesium 2.4 Total Bilirubin 0.3 AST 11 ALT 12 Alkaline Phosphatase 87 Total Protein 6.3 Albumin 3.6 D Globulin 2.7 Albumin/Globulin Ratio 1.3 Assessment & Plan Additional Assessment & Plan Additional Plan: 49-year-old male with significant past medical history of hypertension, diabetes mellitus, CVA with residual left-sided deficits, ESRD on HD [M/W/F] presented to the hospital with chief complaint of hematemesis since 1 day. # ESRD on HD [M/W/F] Likely due to diabetes mellitus, hypertension -Patient was started on dialysis since 2 months -Per patient, patient is able to produce only minimal amount of urine -Patient was admitted for upper GI bleed -- Endoscopy showed Concetta-Nicholson tear Plan Next dialysis scheduled for Thursday -Avoid nephrotoxic medication and renally dose medications # Hypertensive urgency, resolved -Blood pressure at the time of admission is 234/124 mmHg -Patient missed dialysis session that should be done in the morning on the day of admission -Patient received 2 doses of labetalol, 1 dose of hydralazine 10 Mg in the ED at the time of admission Plan -Continue carvedilol, hydralazine and titrate the doses of medications according to blood pressures -Recommended to monitor blood pressure and resume his home medications #Upper GI bleed #NSTEMI type I (less likely) versus type II #Diabetes -Rest of the medical conditions to be treated as per primary team
[2024-12-18] MEDS: hydrALAZINE HCL 25 MG TABLET PO ×2 (13:40→17:37)
--- NOTE | 2024-12-18 15:24 | PD.RESDS ---
Planned Discharge Date 12/18/24 DS: Providers Provider Date of admission: 12/14/24 11:10 Primary care physician: Areli Diana MD Admitting Provider: Malathi Lopes MD Attending Provider on Admission: Malathi Lopes MD Consults: 12/14/24 11:12 Consult to Gastroenterology Routine Comment: Consulting Provider: Prasanna Andre Consult to Nephrology Routine Comment: Consulting Provider: Patel Lopez Referral Physical Therapy Routine Comment: Physician Instructions: Attending Provider on DC: Malathi Lopes MD Discharging Provider: Jesus Glaser MD DS: Diagnosis Problem List Completed Was Problem List Reviewed/Reconciled?: Yes Hospital Course Hospital Course Hospital course: 49 y/o M with PMHx significant for CVA with residual left-sided deficits, diabetes, hypertension, ESRD on dialysis (M/W/F) presents to facility with chief complaint of coffee-ground emesis x 1 day. On admission patient did have hypertensive urgency, treated with IV hydralazine and labetalol. Patient received EGD which showed Concetta-Nicholson tear and stigmata of recent bleeding. Patient had mildly elevated troponin which quickly down trended, deemed to be demand ischemia. Patient was started on sucralfate, Maalox, Protonix. Patient hemoglobin stable during length of stay. Patient suffered dizziness with nausea and vomiting, given promethazine due to prolonged QTc with improvement. Patient received dialysis as per usual schedule while inpatient. Patient cleared for discharge from GI perspective. Patient medically stable and cleared for discharge. Discharge plan: You have been started to follow medications: -Maalox as needed for indigestion -Sucralfate 1 g 4 times a day with meals -Promethazine 25 mg as needed for dizziness Please resume all other medications as previously prescribed Please follow-up with your PCP within 1-2 weeks Return to the ED if you develop new or worsening symptoms Diagnoses: #Concetta-Nicholson tear #QTc prolongation #Hypertensive urgency, resolved #NSTEMI type II #ESRD on dialysis (M/W/F) #Diabetes Plan of care discussed with attending Dr. Lopes. Jesus Glaser MD PGY?1 Time Spent with Patient Time attestation: Total time spent providing and/or coordinating discharge services: Time spent: Less than 30 minutes Exam Vital Signs Temp Pulse Resp BP Pulse Ox O2 Del Method O2 Flow Rate 97.0 F 77 18 130/87 H 97 Nasal Cannula 1 12/18/24 12:00 12/18/24 13:40 12/18/24 12:00 12/18/24 13:40 12/18/24 12:00 12/18/24 12:00 12/18/24 12:00 Narrative Exam PE: Gen: Well-developed and well-nourished. Obese. HEENT: NCAT, PERRLA, EOMI, MMM, anicteric conjunctivae. CVS: normal S1 and S2. RRR. No M/R/G. Chest catheter for dialysis. Resp: CTA B/L. No rhonchi, rales, crackles or wheezing. Abd: soft, non-distended. Nontender. MSK: Good ROM in RUE & BLE. No edema or rash. Left upper extremity proximal muscle weakness, unable to fully open hand. Right upper extremity fistula. Neuro: CN II-XII grossly intact. Strength 5/5 in RUE & BLE. Alert and oriented x3. Psych: appropriate mood and affect. Discharge Plan Plan Patient Disposition: Xfer Skilled Nsg Fac (SNF) Patient condition on transfer: Stable Care Plan Goals: You have been started to follow medications: -Maalox as needed for indigestion -Sucralfate 1 g 4 times a day with meals -Promethazine 25 mg as needed for dizziness Please resume all other medications as previously prescribed Please follow-up with your PCP within 1-2 weeks Return to the ED if you develop new or worsening symptoms Prescriptions/Referrals Prescriptions/Med Rec: New sucralfate 100 mg/mL Suspension 1 g PO ACHS 30 Days Qty: 420 0RF alum-mag hydroxide-simeth [Mag-Al Plus] 200-200-20 mg/5 mL Suspension 30 ml PO QID PRN (Reason: Upset Stomach/Indigestion) 7 Days Qty: 3000 0RF promethazine 25 mg tablet 25 mg PO TID PRN (Reason: dizziness) Qty: 5 0RF Continued furosemide 40 mg Tablet 40 mg PO QDAY Rx Instructions: Hold for SBP<100 or DBP <60 glipizide 10 mg Tablet 10 mg PO BID carvedilol [Coreg] 25 mg tablet 25 mg PO BID Rx Instructions: must administer with a meal/food Eliquis 5 mg tablet 5 mg PO BID hydralazine 100 mg tablet 100 mg PO QID hydroxyzine HCl 25 mg tablet 25 mg PO BID insulin glargine 100 unit/mL (3 mL) insulin pen 15 unit subcut QDAY Rx Instructions: Hold if blood sugar <100 meclizine 25 mg tablet 25 mg PO Q8HR PRN (Reason: dizziness) nicardipine 20 mg capsule 20 mg PO BID Rx Instructions: Hold for SBP<100 or DBP <60 Tradjenta 5 mg tablet 5 mg PO QDAY tramadol 50 mg tablet 50 mg PO Q6H PRN (Reason: pain) ondansetron HCl 4 mg tablet 4 mg PO Q4H PRN (Reason: nausea and vomiting) Rx Instructions: give 1st dose 30min before emetogenic chemo Kaley-Radha 0.8 mg Tablet 1 tab PO QDAY rosuvastatin 20 mg Tablet 20 mg PO HS Referrals: Areli Diana MD [Primary Care Provider] - Patient/Caregiver Discharge Instructions Discharge Activity: resume usual activities Education Materials: Bleeding Gastrointestinal, Abdominal Pain, Your High Blood Pressure Risk Factors, Hypertension Dc Print Language: Malaysian Stand Alone Forms: Tiffany Award Info., Patient Portal Info Letter Discharge Order Discharge Orders: Discharge (Routine); Ordered 12/18/24 Ordered By: Jesus Glaser Quality Discharge Quality Measures VTE prophylaxis Attestestation Attestation I attest that I was physically present for the evaluation, physical examination, lab and imaging review of the patient with the residents. I discussed the case with the residents and agree with the findings and plans of care as documented above. Malathi Lopes MD
--- NOTE | 2024-12-18 18:33 | ESPR_ITS ---
Documentation for date of: 12/18/24 Subjective Subjective Interval history: Case discussed with internal medicine team okay to discharge patient home Hemoglobin hematocrit 11.8 and 36.0 Exam Vital Signs Temp Pulse Resp BP Pulse Ox O2 Del Method O2 Flow Rate 96.9 F 81 19 157/97 H 98 Nasal Cannula 1 12/18/24 16:00 12/18/24 17:37 12/18/24 16:00 12/18/24 17:37 12/18/24 16:00 12/18/24 16:00 12/18/24 16:00 Objective Labs 12/18/24 05:13 12/18/24 05:13 Labs: Laboratory Results - last 24 hr 12/18/24 05:13 WBC 6.6 RBC 4.06 L Hgb 11.8 L Hct 36.0 L MCV 89 MCH 29.1 MCHC 32.8 RDW Std Deviation 47.4 H Plt Count 214 D Neut % (Auto) 43 Lymph % (Auto) 44 [place] % (Auto) 11 Eos % (Auto) 1 Baso % (Auto) 1 Neut # (Auto) 2.9 Lymph # (Auto) 2.9 [place] # (Auto) 0.7 Eos # (Auto) 0.1 Baso # (Auto) 0.0 Immature Gran # (Auto) 0.03 H Absolute Nucleated RBC 0.00 Immature Gran % 1 H Nucleated RBC % 0 Sodium 132 L Potassium 3.7 Chloride 93 L Carbon Dioxide 24.9 Anion Gap 14 BUN 54 H Creatinine 10.1 H* D Estim Creat Clear Calc 10.5 L eGFR 6 L* BUN/Creatinine Ratio 5 L Glucose 123 H Calculated Osmolality 280 Calcium 8.5 Corrected Calcium 8.8 Phosphorus 7.4 H Magnesium 2.4 Total Bilirubin 0.3 AST 11 ALT 12 Alkaline Phosphatase 87 Total Protein 6.3 Albumin 3.6 D Globulin 2.7 Albumin/Globulin Ratio 1.3 Impressions Impression: Concetta-Nicholson tear Esophageal erosions pain abdomen Continue current present treatment okay to discharge patient home Assessment & Plan A&P Narrative # Coffee-ground hematemesis etiology uncertain Plan Agree with the IV Protonix as well as IV octreotide Consent obtained in Japanese for fiberoptic esophagogastroduodenoscopy with possible therapeutic intervention under intravenous moderate sedation Other medical problems include # End-stage renal disease on hemodialysis MWF # CVA with left-sided motor weakness residual # IDDM # Essential hypertension Thank you very much for the opportunity to participate in the care of this patient Time Spent With Patient Time: Total time spent is greater than 50% in coordination of care (as documented) at patient's floor/unit and/or counseling patient:
== END 2024-12-18 18:35 | disposition skilled nursing facility (03) | DRG 242 ==
LOC: SERX 09:17 → SERHOLD 12:37 → S3SX 20:20 → SERHOLD 12-15 06:16 → S3SX 12-15 07:04 → S3NX 12-15 17:04
PROVIDERS: Specialist; Student in an Organized Health Care Education/Training Program; Admitting Provider Student in an Organized Health Care Education/Training Program; Emergency Provider Emergency Medicine; PCP Hospitalist; Visit Provider Student in an Organized Health Care Education/Training Program
PROC: (CPT 43239; principal; 2024-12-14 17:00)
DX: K22.6 Gastro-esophageal laceration-hemorrhage syndrome (principal); K20.91 Esophagitis, unspecified with bleeding; I69.30 Unspecified sequelae of cerebral infarction; E11.22 Type 2 diabetes mellitus with diabetic chronic kidney disease; I69.354 Hemiplegia and hemiparesis following cerebral infarction affecting left non-dominant side; K29.71 Gastritis, unspecified, with bleeding; I12.0 Hypertensive chronic kidney disease with stage 5 chronic kidney disease or end stage renal disease; F15.90 Other stimulant use, unspecified, uncomplicated; N18.6 End stage renal disease; I16.0 Hypertensive urgency; I24.89 Other forms of acute ischemic heart disease; Z99.2 Dependence on renal dialysis; Z79.4 Long term (current) use of insulin; Z79.84 Long term (current) use of oral hypoglycemic drugs; Z87.891 Personal history of nicotine dependence
CPT/HCPCS: 36415; 71045; 74018; 74176; 80053; 81001; 83036; 83605; 83690; 83735; 83880; 84100; 84145; 84484; 85025; 85610; 85730; 86850; 86900; 86901; 87040; 87081; 93005; 93225; 96374; 96375; 96376; 97161; 99285; J0360; J1200; J1643; J1815; J2250; J2270; J2354; J2405; J2470; J2550; J2765; J3010; J3490; J7050; Q5105; A9270; J1920

== ENCOUNTER 2025-01-09 11:26 | Emergency (ER) | payer MEDICAID, SELFPAY ==
[2025-01-09] VITALS (8 sets, daily range): BP systolic 150–213; BP diastolic 76–113; PULSE 72–98; RESP 14–24; TEMP 36.7–37.1; O2SAT 91–99; BMI 37.4
--- NOTE | 2025-01-09 11:47 | XR_ITS ---
Examination: Abdominal series 3 views including AP upright chest TECHNIQUE: AP portable upright chest, AP upright AP supine abdomen-3 views Exam date and time: January 09, 2025 1156 hours INDICATIONS: Nausea vomiting abdominal pain today. FINDINGS: Mild heart failure Mild retrocardiac contour with prominent vascular congestion Right internal jugular dialysis catheter satisfactory position. Large amounts of stool throughout the colon No obstruction No free air IMPRESSION: Large amounts of stool throughout the colon, no obstruction
--- NOTE | 2025-01-09 11:48 | EDNOTE_ITS ---
<Statement entered by Lashon Steinberg MD - 01/09/25 17:56> As co-signing physician, I was present and available for consult prn. I concur with the plan and care as documented by the midlevel provider. ED General RME/HPI General Chief complaint: Nausea/Vomiting/Diarrhea Stated complaint: VOMITING BLOOD Time Seen by Provider: 01/09/25 11:44 Arrival date/time: 01/09/25 11:26 CC: Nausea vomiting HPI ongoing for the past 24 hours. EMS reported coffee- ground emesis and 400 cc of after persistent vomiting. The patient is on Eliquis. Patient is a dialysis patient of Dr. Oneal, is dialyzed on Thursday and Thursday. Related Data Home Medications ?Medication ?Instructions ?Recorded ?Confirmed furosemide 40 mg tablet 40 mg PO QDAY 04/18/2412/04 glipizide 10 mg tablet 10 mg PO BID 04/18/24 rosuvastatin 20 mg tablet 20 mg PO HS 09/12/24 5 vitamin B complex-vitamin C-folic 1 tab PO QDAY 12/04/24 acid 0.8 mg tablet (Kaley-Radha) apixaban 5 mg tablet (Eliquis) 5 mg PO BID 12/04/24 carvedilol 25 mg tablet (Coreg) 25 mg PO BID 12/04/24 12/04/24 hydralazine 100 mg tablet 100 mg PO QID 12/04/2412/04 hydroxyzine HCl 25 mg tablet 25 mg PO BID 12/04/2411/29 insulin glargine 100 unit/mL (3 15 unit subcut QDAY 12/04/24 mL) subcutaneous pen linagliptin 5 mg tablet (Tradjenta) 5 mg PO QDAY 12/0412/04/24 meclizine 25 mg tablet 25 mg PO Q8HR PRN dizziness 12/04/24 12/04/24 nicardipine 20 mg capsule 20 mg PO BID 12/04/24 ondansetron HCl 4 mg tablet 4 mg PO Q4H PRN nausea and vomiting 12/04/24 12/04/24 tramadol 50 mg tablet 50 mg PO Q6H PRN pain 12/04/24 Previous Rx's ?Medication ?Instructions ?Recorded promethazine 25 mg tablet 25 mg PO TID PRN dizziness # 5 tabs 12/18/24 sucralfate 100 mg/mL oral 1 g (10 mL) PO ACHS 30 days #420 mL 12/18/24 suspension polyethylene glycol 3350 17 4 g PO QDAY #119 grams 04/28 gram/dose oral powder (Miralax) prochlorperazine maleate 10 mg 10 mg PO BID PRN nausea and 01/09/25 tablet (Compazine) vomiting #14 tabs Allergies Allergy/AdvReac Type Severity Reaction Status Date / Time No Known Allergies Allergy Verified 09/30/24 10:46 Review of Systems Review of Systems Narrative Review of Systems: GEN: No fever, no chills, no weight loss EYES: No discharge, no visual changes, no pain HEENT: No ear pain, no congestion, no sore throat PULM: No shortness of breath, no cough, no congestion CV: No chest pain, no dyspnea on exertion, no palpitations GI: + nausea, + vomiting, no diarrhea, no pain, no constipation : No frequency, no urgency, no dysuria MUSC/SKEL: No joint pain, no back pain SKIN: No rash PSYCH: No hallucinations, no depression HEME/LYMPH: No easy bleeding or bruising tendencies NEURO: No weakness, no headache Past Medical History Past Medical History NEUROLOGIC: Positive Neurological Disorders and Cerebrovascular Accident; Negative Transient Ischemic Attacks (TIA), Dementia, Alzheimer's Disease, Parkinson's Disease, Brain Tumor, Meningitis, Seizures, Epilepsy, Multiple Sclerosis, Cerebral Palsy, Amyotrophic Lateral Sclerosis (ALS/Edda Gehrig's), Guillain-Bassett Syndrome, Spina Bifida, Paralysis, Peripheral Neuropathy, Moody's Palsy, Subdural Hematoma, Migraine, Head Trauma, Spinal Cord Injury or Traumatic Brain Injury CARDIAC: Positive Cardiac Disorders, Peripheral Vascular Disease, Hypercholesterolemia, Edema, Cellulitis and Hypertension; Negative Cardiac Arrhythmia, Atrial Fibrillation, Angina, Heart Murmur, Coronary Artery Disease, Atherosclerotic Heart Disease, Aneurysm, Congestive Heart Failure, Congenital Heart Disease, Cardiomyopathy or Deep Vein Thrombosis RESPIRATORY: Negative Chronic Obstructive Pulmonary Disease (COPD), Asthma, Bronchitis, Emphysema, Pneumonia, Pulmonary Fibrosis, Cystic Fibrosis, Tuberculosis, Pulmonary Embolism, Pulmonary Edema or Sleep Apnea GASTROINTESTINAL: Positive Gastrointestinal Disorders, Pancreatitis and Obesity; Negative Hepatitis, Cirrhosis, Celiac Disease, Gall Bladder Disease, Gastrointestinal Bleed, Esophageal Varices, Chery's Esophagus, Colitis, Ulcerative Colitis, Diverticulitis, Diverticulosis, Ulcer, Colorectal Cancer, Irritable Bowel, Crohn's Disease, Obstructive Bowel, Hiatal Hernia, Hemorrhoids or Gastroesophageal Reflux Disease GENITOURINARY: Positive Genitourinary Disorders, Renal Disease and Dialysis; Negative Kidney Stones, Inguinal Hernia, Prostate Cancer or Benign Prostatic Hyperplasia REPRODUCTIVE: Negative Breast Cancer, Fibroids, Genital Herpes, Gonorrhea, Syphilis or Testicular Cancer MUSCULOSKELETAL: Positive Musculoskeletal Disorders and Osteomyelitis; Negative Muscular Dystrophy, Myasthenia Gravis, Marfan's Syndrome, Bone Cancer, Arthritis, Rheumatoid Arthritis, Osteoporosis, Degenerative Disk Disease, Gout, Scoliosis, Carpal Tunnel Syndrome, Fibromyalgia, Fractures or Degenerative Joint Disease ENT: Negative Cataracts, Glaucoma, Blind, Retinal Detachment, Ear Infection, Deafness, Head Trauma or Eye Prosthesis ENDOCRINE: Positive Endocrine Disorders and Diabetes Mellitus Type 2; Negative Diabetes Mellitus Type 1, Hypoglycemia, Hyperthyroidism, Hypothyroidism, Parathyroid Disease, Pituitary Disease, Systemic Lupus Erythematosus, Syndrome of Inappropriate Antidiuretic Hormone (SIADH) or Graves' Disease HEMATOLOGIC: Positive Blood Disorders and Anemia; Negative Leukemia, Hemophilia, Thalassemia, Sickle Cell Disease or Clotting Problems PSYCHO/SOCIAL: Positive Recreational Drug Use, Depression and Anxiety; Negative Psychiatric Problems, Schizophrenia, Bipolar Disorder, Behavior Problems, Self-Mutilation, Attention Deficit Disorder, Attention Deficit Hyperactivity Disorder, Depression or Post Traumatic Stress Disorder OTHER HISTORY: Positive Hospitalization; Negative Autoimmune Disease, Down Syndrome, Autism, Developmental Delay, Shingles, Falls, Blood Transfusions, Anesthesia Reactions, Organ Transplant, Chemotherapy, Radiation Therapy, Hyperbaric Therapy, MRSA, VRSA, Vancomycin- Resistant Enterococci, Human Immunodeficiency Virus (HIV), Chicken Pox, Measles, Mumps, Rubella (Greek Measles), Pertussis, Clostridium Difficile, Cancer, Breast Cancer, Cervical Cancer, Colorectal Cancer, Lung Cancer, Ovarian Cancer, Prostate Cancer or Testicular Cancer Family History FAMILY HISTORY: Negative Family Psychiatric Problems, Family Respiratory Disorders, Family Cardiac Disorders, Family Gastrointestinal Problems, Family Cancer, Family Surgery or Family Anesthesia Reaction Surgical History SURGICAL: Positive Vascular Surgery, Eye Surgery and Amputation; Negative Coronary Stent, Cardiac Catheterization, Pacemaker, Angiogram, Auto Implanted Cardiovert Defib, Carotid Endarterectomy, Endocrine Surgery, Thyroidectomy, Ear Surgery, Tympanostomy Tube, Nose Surgery, Oral Surgery, Tonsillectomy, Adenoidectomy, Corneal Transplant, Throat Surgery, Abdominal Surgery, Tracheostomy, Nephrectomy, Joint Replacement, Open Reduction Internal Fixation, Arthroscopy, Neurologic Surgery, Brain Shunt, Mastectomy, Lumpectomy, Hysterectomy, Tubal Ligation, Section, Vasectomy or Organ Transplant Social History SMOKING STATUS: Never smoker SECOND HAND EXPOSURE: No SUBSTANCE USE: former substance user and methamphetamine (Former, last used 07/2023 months ago.) ED Exam Narrative Physical exam: [General: Obese in moderate discomfort but not in any acute distress Head normocephalic HEENT: Within acceptable limits Neck is supple nontender Chest equal chest rise nontender to palpation, right anterior chest dialysis catheter site clean dry and intact. Respiratory: Clear to auscultation no wheezes crackles or rubs CV: Rate rhythm is regular no murmurs rubs or clicks Abdomen is distended secondary to body habitus soft nontender no masses positive bowel sounds all 4 quadrants Back: No CVA tenderness no spinous process tenderness from cervical spine thoracic and lumbar spine Skin: Intact no petechiae rash induration ulceration or crepitus Extremities: Moving all extremity against resistance cap refill less than 2 seconds neurosensory intact Neuro: Awake alert oriented x3 Glascow coma 15 no focal deficits] Course Quality Measures none Orders Category Date Time Status XR abdomen series w chest 1V Stat Exams 01/09/25 11:47 Completed B-Type Natriuretic Peptide Stat Lab 01/09/25 11:50 Completed CBC Stat Lab 01/09/25 11:50 Completed Comprehensive Metabolic Panel Stat Lab 01/09/25 11:50 Completed Drug Screen,Urine Stat Lab 01/09/25 12:15 Completed LDH (Lactate Dehydrogenase) Stat Lab 01/09/25 11:50 Completed Magnesium Stat Lab 01/09/25 11:50 Completed Partial Thromboplastin Time Stat Lab 01/09/25 11:50 Completed Prothrombin Time with INR Stat Lab 01/09/25 11:50 Completed Troponin I Stat Lab 01/09/25 11:50 Completed Urinalysis Stat Lab 01/09/25 12:15 Completed Calcium Gluconate 10% Inj Med 01/09/25 14:12 Discontinued 1 gm IV X1 ONE Dextrose 50% Syr [D50w Syringe Abboject] Med 01/09/25 14:12 Discontinued 25 ml IV X1 ONE Insulin Regular Med 01/09/25 14:12 Discontinued 5 unit IV X1 ONE Prochlorperazine Inj [Compazine Inj] Med 01/09/25 11:47 Discontinued 10 mg IV X1 ONE hydrALAZINE INJ [Apresoline Inj] Med 01/09/25 13:11 Discontinued 20 mg IV X1 ONE Vital Signs Vital signs: Vital Signs Respiratory Rate 21 H 01/09/25 11:46 Blood Pressure 213/89 H 01/09/25 11:46 Pulse Oximetry (%) 99 01/09/25 11:46 Oxygen Delivery Method Nasal Cannula 01/09/25 11:46 Oxygen Flow Rate 2 01/09/25 11:46 [facility] Patient data External records reviewed:: [facility] previous records and EMS form Clinical information provided by:: patient and EMS Social determinants that could affect healthcare access:: none Patient has the following chronic illnesses:: ESRD dialysis on blood thinners How is presenting disease/condition affected by chronic disease/condition?: e xacerbated by Evaluation data The following diagnostics were reviewed and interpreted by me:: lab results Lab and/or radiology exams considered but not ordered:: CBC shows no leukocytosis with stable anemia of 10.4 and 31.3 respectively no thrombocytopenia INR is within acceptable limits. CMP shows a potassium of 5.8 BUN of 52 creatinine of 8.1 no transaminitis LDH 266 BNP of 587 troponin of 0.031 urine is negative for UTI UDS is negative 3 view abdomen shows the patient has a large amount of stool. Interpretation Summary: Coffee-ground emesis as reported we have not seen, the patient has been sleeping since he been getting Compazine. Patient has a large amount of stool in his intestines, patient does need dialysis as it is scheduled today we will give him medications for his high potassium level and discharge him back to care facility. Skilled facility where the patient resides was contacted he is missed his opportunity for dialysis today, they looks like they will arrange for tomorrow. Patient will be given medication to decrease his potassium is currently at 5.8. The patient has no other electrolyte imbalances. Patient be discharged home with MiraLAX for constipation. And Compazine for nausea vomiting. Medications Medications considered but not ordered:: None Medication administrations:: Medication Administration History Discontinued Medications Calcium Gluconate (Calcium Gluconate 10% Inj 1 Gm/10 Ml Vial) 1 gm IV X1 ONE Stop: 01/09/25 14:13 Last Admin: 01/09/25 14:24 Dose: 1 gm Documented By: CINDI Dextrose (Dextrose 50%-Water Inj 50 Ml Syringe) 25 ml IV X1 ONE Stop: 01/09/25 14:13 Last Admin: 01/09/25 14:22 Dose: 25 ml Documented By: CINDI Hydralazine HCl (Hydralazine Inj 20 Mg/Ml Vial) 20 mg IV X1 ONE Stop: 01/09/25 13:12 Last Admin: 01/09/25 13:28 Dose: 20 mg Documented By: DEION Insulin Human Regular (Insulin Hum Regular 1 Unit/0.01 Ml (Per Unit)) 5 unit IV X1 ONE; Protocol Stop: 01/09/25 14:13 Last Admin: 01/09/25 14:27 Dose: 5 unit Documented By: CINDI Co-signed By: ALPHONSO Prochlorperazine Edisylate (Prochlorperazine Inj 5 Mg/Ml Vial 2 Ml) 10 mg IV X1 ONE; Protocol Stop: 01/09/25 11:48 Last Admin: 01/09/25 11:56 Dose: 10 mg Documented By: DEION None Consultations Consultation(s) initiated? (list below): No Diagnosis Differential Diagnosis ED Complaint MDM: Upper GI bleed constipation obstipation hyper kalemia Most likely diagnosis given after review of the tests above:: Hyperkalemia nausea vomiting constipation Admission Indicated Admission indicated?: not indicated Explain why admission is indicated or not indicated:: Stable for discharge Admission Request Was there a request for admission?: No Disposition Plan Disposition Plan: Discharge Discharge Attestation Discharge Attestation: The patient and all family members were given an opportunity to ask questions and understood the discharge instructions. Discharge instructions specifically effects, indications for sooner follow up or return to the emergency department, and the expected course of current diagnosis. Patient condition: Stable Medical Decision Making Differential Diagnosis Differential Diagnosis: Upper GI bleed constipation obstipation hyper kalemia Lab Data 01/09/25 11:50 01/09/25 11:50 Labs: Lab Results 01/09/25 01/09/25 Range/Units 11:50 12:15 WBC 8.3 (3.8-10.6) Thou/mm3 RBC 3.55 L (4.50-5.90) Miln/mm3 Hgb 10.4 L (13.5-16.0) g/dL Hct 31.3 L (41.0-53.0) % MCV 88 (80-100) fL MCH 29.3 (25.0-35.0) pg MCHC 33.2 (31.0-37.0) g/dl RDW Std Deviation 44.2 H (35.1-43.9) fL Plt Count 223 (140-440) Thou/mm3 Neut % (Auto) 85 H (37-80) % Lymph % (Auto) 11 (10-50) % Jefferson % (Auto) 3 (0-12) % Eos % (Auto) 1 (0-10) % Baso % (Auto) 0 (0-2.5) % Neut # (Auto) 7.0 (1.8-7.7) Thou/mm3 Lymph # (Auto) 0.9 L (1.0-4.8) Thou/mm3 Jefferson # (Auto) 0.3 (0.0-0.8) Thou/mm3 Eos # (Auto) 0.0 (0.0-0.5) Thou/mm3 Baso # (Auto) 0.0 (0.0-0.2) Thou/mm3 Immature Gran # (Auto) 0.04 H (0.00-0.00) Thou/mm3 Absolute Nucleated RBC 0.00 (0.00-0.00) Thou/mm3 Immature Gran % 1 H (0-0) % Nucleated RBC % 0 (0) /100 WBC PT 10.9 (9.0-12.2) Seconds INR 1.0 (0.9-1.3) APTT 31.9 (22.0-36.0) Seconds Sodium 136 (136-145) mMol/L Potassium 5.8 H (3.4-5.1) mMol/L Chloride 100 (98-107) mMol/L Carbon Dioxide 25.8 (20.0-31.0) mMol/L Anion Gap 10 (7-16) BUN 52 H (9-23) mg/dL Creatinine 8.1 H* (0.6-1.3) mg/dL Estim Creat Clear Calc 13.5 L (>60) mL/min eGFR 8 L* (60 - ) See Note BUN/Creatinine Ratio 6 L (12-20) Ratio Glucose 157 H (74-106) mg/dL Calculated Osmolality 288 (275-295) Calcium 9.4 (8.3-10.6) mg/dL Corrected Calcium 9.4 (8.5-10.1) mg/dL Magnesium 2.4 (1.6-2.6) mg/dL Total Bilirubin 0.2 L (0.3-1.2) mg/dL AST 24 (0-34) U/L ALT 23 (10-49) U/L Alkaline Phosphatase 94 (46-116) U/L Lactate Dehydrogenase 266 H (120-246) U/L Troponin I 0.031 (0.0-0.045) ng/mL B-Natriuretic Peptide 587 H* (0-100) pg/mL Total Protein 7.1 (5.7-8.2) gm/dL Albumin 4.1 (3.5-5.0) gm/dL Globulin 3.0 (2.3-3.5) gm/dL Albumin/Globulin Ratio 1.4 (1.2-2.2) Ur Collection Type Clean Catch Urine Color Lt-Yellow (Lt Yel-Yel) Urine Clarity Clear (Clear/Hazy) Urine pH 8.0 H (5.0-7.0) Ur Specific [place] 1.013 (1.001-1.035) Urine Protein 3+ A (Neg - Trace) Urine Glucose (UA) 3+ A (Negative) Urine Ketones Negative (Negative) Urine Blood 1+ A (Negative) Urine Nitrite Negative (Negative) Urine Bilirubin Negative (Negative) Urine Urobilinogen (Auto) Negative (0.0-1.0) mg/dL Ur Leukocyte Esterase Negative (Negative) Urine RBC 91 H (0-3) /hpf Urine WBC 2 (0-5) /hpf Ur Squamous Epith Cells 0 (0-5) /hpf Urine Bacteria None (None) Urine Opiates Screen Negative (Negative) Urine Fentanyl Screen Negative (Negative) Ur Barbiturates Screen Negative (Negative) U Amphetamin/Meth Scrn Negative (Negative) U Benzodiazepines Scrn Negative (Negative) U Cocaine Metab Screen Negative (Negative) U Marijuana (THC) Screen Negative (Negative) Discharge Plan Plan Patient Disposition: HOME (Self Care) Patient condition on transfer: Stable Prescriptions/Referrals Prescriptions/Med Rec: New prochlorperazine maleate [Compazine] 10 mg tablet 10 mg PO BID PRN (Reason: nausea and vomiting) Qty: 14 0RF polyethylene glycol 3350 [Miralax] 17 gram/dose powder 4 g PO QDAY Qty: 119 0RF No Action furosemide 40 mg Tablet 40 mg PO QDAY Rx Instructions: Hold for SBP<100 or DBP <60 glipizide 10 mg Tablet 10 mg PO BID carvedilol [Coreg] 25 mg tablet 25 mg PO BID Rx Instructions: must administer with a meal/food Eliquis 5 mg tablet 5 mg PO BID hydralazine 100 mg tablet 100 mg PO QID hydroxyzine HCl 25 mg tablet 25 mg PO BID insulin glargine 100 unit/mL (3 mL) insulin pen 15 unit subcut QDAY Rx Instructions: Hold if blood sugar <100 meclizine 25 mg tablet 25 mg PO Q8HR PRN (Reason: dizziness) nicardipine 20 mg capsule 20 mg PO BID Rx Instructions: Hold for SBP<100 or DBP <60 Tradjenta 5 mg tablet 5 mg PO QDAY tramadol 50 mg tablet 50 mg PO Q6H PRN (Reason: pain) ondansetron HCl 4 mg tablet 4 mg PO Q4H PRN (Reason: nausea and vomiting) Rx Instructions: give 1st dose 30min before emetogenic chemo Kaley-Radha 0.8 mg Tablet 1 tab PO QDAY rosuvastatin 20 mg Tablet 20 mg PO HS sucralfate 100 mg/mL Suspension 1 g PO ACHS 30 Days Qty: 420 0RF promethazine 25 mg tablet 25 mg PO TID PRN (Reason: dizziness) Qty: 5 0RF Referrals: Areli Diana MD [Primary Care Provider] - In 1 week Problem List Clinical Impression: Nausea & vomiting, Constipation, End-stage renal disease (ESRD) Patient/Caregiver Discharge Instructions Other Activity Instructions:: Take the medicines as prescribed make sure you get into dialysis. Education Materials: ED Constipation (Adult), ED Vomiting (Adult) Print Language: Lithuanian Stand Alone Forms: Tiffany Award Info., Work/School Release, Patient Portal Info Letter PA/CHIEF NURSE ANESTHETIST Supervising Physician PA/CHIEF NURSE ANESTHETIST Supervising Physician: Dong Sims ENP
[2025-01-09] MEDS: PROCHLORPERAZINE INJ 5 MG/ML VIAL 2 ML 10 MG IV (11:56)
[2025-01-09 12:08] LABS: Basophils % (Auto) 0 % (0-2.5); Eosinophils % (Auto) 1 % (0-10); Hematocrit 31.3 % (41.0-53.0); Hemoglobin 10.4 g/dL (13.5-16.0); Immature Granulocytes % (Auto) 1 % (0-0); Immature Granulocytes Auto 0.04 Thou/mm3 (0.00-0.00); Lymphocytes # (Auto) 0.9 Thou/mm3 (1.0-4.8); Lymphocytes % (Auto) 11 % (10-50); Mean Corpuscular HGB Conc 33.2 g/dl (31.0-37.0); Mean Corpuscular Hemoglobin 29.3 pg (25.0-35.0); Mean Corpuscular Volume 88 fL (80-100); Monocytes # (Auto) 0.3 Thou/mm3 (0.0-0.8); Monocytes % (Auto) 3 % (0-12); Neutrophils % (Auto) 85 % (37-80); Nucleated Red Blood Cell % 0 /100 WBC (0); Platelet Count 223 Thou/mm3 (140-440); RDW Standard Deviation 44.2 fL (35.1-43.9); Red Blood Count 3.55 Miln/mm3 (4.50-5.90); White Blood Count 8.3 Thou/mm3 (3.8-10.6)
[2025-01-09 12:25] LABS: Partial Thromboplastin Time 31.9 Seconds (22.0-36.0); Prothrombin Time 10.9 Seconds (9.0-12.2)
[2025-01-09 12:28] LABS: B-Type Natriuretic Peptide 587 pg/mL (0-100)
[2025-01-09 12:29] LABS: Alanine Aminotransferase 23 U/L (10-49); Albumin, Serum 4.1 gm/dL (3.5-5.0); Albumin/Globulin Ratio 1.4 (1.2-2.2); Alkaline Phosphatase 94 U/L (46-116); Anion Gap 10 (7-16); Aspartate Amino Transferase 24 U/L (0-34); BUN/Creatinine Ratio 6 Ratio (12-20); Bilirubin,Total 0.2 mg/dL (0.3-1.2); Blood Urea Nitrogen 52 mg/dL (9-23); Calcium 9.4 mg/dL (8.3-10.6); Calcium (Corrected) 9.4 mg/dL (8.5-10.1); Carbon Dioxide 25.8 mMol/L (20.0-31.0); Chloride 100 mMol/L (98-107); Creatinine (Component) 8.1 mg/dL (0.6-1.3); Estimated Creatinine Clearance 13.5 mL/min (>60); Glucose 157 mg/dL (74-106); LDH (Lactate Dehydrogenase) 266 U/L (120-246); Magnesium 2.4 mg/dL (1.6-2.6); Osmolality,Calculated 288 (275-295); Potassium 5.8 mMol/L (3.4-5.1); Sodium 136 mMol/L (136-145); Total Protein 7.1 gm/dL (5.7-8.2); Troponin I 0.031 ng/mL (0.0-0.045); eGFR 8 See Note
[2025-01-09 12:39] LABS: Collection Type, Urine Clean Catch; Squamous Epithelial Cell,Urine 0 /hpf (0-5)
[2025-01-09 12:50] LABS: Bilirubin,Urine Negative (Negative); Blood,Urine 1+ (Negative); Clarity,Urine Clear (Clear/Hazy); Color,Urine Lt-Yellow (Lt Yel-Yel); Glucose, Urine 3+ (Negative); Ketones,Urine Negative (Negative); Leukocyte Esterase,Urine Negative (Negative); Nitrite,Urine Negative (Negative); Protein,Urine 3+ (Neg - Trace); RBC,Urine 91 /hpf (0-3); Specific Gravity,Urine 1.013 (1.001-1.035); Urobilinogen,Urine Negative mg/dL (0.0-1.0); WBC,Urine 2 /hpf (0-5)
[2025-01-09 12:58] LABS: Amphetamine/Methamp Scrn,U Negative (Negative); Barbiturate Screen,Urine Negative (Negative); Benzodiazepines Screen,Urine Negative (Negative); Benzoylecgonine Screen, Ur Negative (Negative); Fentanyl Screen,Urine Negative (Negative); Opiate Screen,Urine Negative (Negative); THC Screen,Urine Negative (Negative)
[2025-01-09] MEDS: hydrALAZINE INJ 20 MG/ML VIAL IV (13:28)
[2025-01-09] MEDS: DEXTROSE 50%-WATER INJ 50 ML SYRINGE 25 ML IV (14:22)
[2025-01-09] MEDS: CALCIUM GLUCONATE 10% INJ 1 GM/10 ML VIAL IV (14:24)
[2025-01-09] MEDS: INSULIN HUM REGULAR 1 UNIT/0.01 ML (PER UNIT) 5 UNIT IV (14:27)
[2025-01-09] MEDS: LIDOCAINE VISCOUS 2% 15 ML UDC PO (15:52)
[2025-01-09] MEDS: MG HYD/AL HYD/SIME (Maalox Reg) SUSP 30 ML UDC PO (15:52)
--- NOTE | 2025-01-09 16:20 | PC.SS ---
[facility] arranged [facility] reference number: [id number]. Terrie at [facility] is aware the patient is return to SNF today. Pending ETA.
--- NOTE | 2025-01-09 16:46 | PC.NURSE ---
Report given to facility RN. Updated with ETA of [id number]
[2025-01-09] MEDS: ACETAMINOPHEN 325 MG TABLET 650 MG PO (17:44)
[2025-01-09] MEDS: LORazepam 2 MG/ML VIAL 1 MG IVP (20:37)
== END 2025-01-09 20:54 | disposition home or self-care (01) ==
PROVIDERS: Registered Nurse General Practice; Emergency Provider Emergency Medicine; PCP Hospitalist
DX: K59.00 Constipation, unspecified (principal)
CPT/HCPCS: 36415; 74022; 80053; 80307; 81001; 83615; 83735; 83880; 84132; 84484; 85025; 85610; 85730; 96374; 99284; J0360; J0612; J0780; J1815; J2060; J3490; A9270